=== PATIENT | male | born 1975 | race Caucasian/White ===

== ENCOUNTER 2016-07-19 08:11 | Inpatient (IN) | payer OTHER ==
[2016-07-19 09:27] VITALS: BMI 34.7
--- NOTE | 2016-07-19 12:18 | HP ---
CIWA Score - CIWA Score Nausea/Vomitin-Int. Nausea w/Dry Heave Muscle Tremors: 4-Moderate,w/Arms Extend Anxiety: 4-Mod. Anxious/Guarded Agitation: 4-Moderately Restless Paroxysmal Sweats: 1-Minimal Palms Moist Orientation: 0-Oriented Tacttile Disturbances: 3-Moderate Itch/Numb/Burn Auditory Disturbances: 0-None Visual Disturbances: 0-None Headache: 0-None Present CIWA-Ar Total Score: 20 Admission ROS BHS - HPI Chief Complaint: DETOX TX FOR ALCOHOL DEPENDENCE Allergies/Adverse Reactions: Allergies Allergy/AdvReac Type Severity Reaction Status Date / Time No Known Allergies Allergy Verified 07/19/16 09:51 History of Present Illness: 41 Y/O H/M WITH A HX OF ALCOHOL, COCAINE,PCP AND MARIJUANA DEPENDENCE SEEKING DETOX TX Exam Limitations: No Limitations - Ebola screening Have you traveled outside of the country in the last 21 days: No Have you had contact with anyone from an Ebola affected area: No Have you been sick,other than usual withdrawal symptoms: No Do you have a fever: No - Review of Systems Constitutional: Chills, Night Sweats EENT: reports: No Symptoms Reported Respiratory: reports: No Symptoms reported Cardiac: reports: No Symptoms Reported GI: reports: Nausea : reports: No Symptoms Reported Musculoskeletal: reports: No Symptoms Reported Integumentary: reports: No Symptoms Reported Neuro: reports: Tremors Endocrine: reports: No Symptoms Reported Hematology: reports: No Symptoms Reported Psychiatric: reports: Orientated x3, Anxious, Depressed Other Systems: Reviewed and Negative Patient History - Patient Medical History Hx Anemia: No Hx Asthma: No Hx Chronic Obstructive Pulmonary Disease (COPD): No Hx Cardiac Disorders: No Hx Hypertension: No Hx Hypercholesterolemia: No HX Cerebrovascular Accident: No Hx Seizures: No Hx Diabetes: No Hx Gastrointestinal Disorders: No Hx Genitourinary Disorders: No Hx Sexually Transmitted Disorders: No Hx Renal Disease (ESRD): No Hx Thyroid Disease: No Hx Human Immunodeficiency Virus (HIV): No (NEGATIVE HX) Hx Hepatitis C: No Hx Depression: Yes (NO MEDS) Hx Suicide Attempt: No Hx Schizophrenia: No - Patient Surgical History Past Surgical History: No Hx Neurologic Surgery: No Hx Cataract Extraction: No Hx Cardiac Surgery: No Hx Lung Surgery: No Hx Breast Surgery: No Hx Breast Biopsy: No Hx Abdominal Surgery: No Hx Appendectomy: No Hx Cholecystectomy: No Hx Genitourinary Surgery: No Hx Orthopedic Surgery: No Anesthesia Reaction: No - PPD History Previous Implant?: Yes Documented Results: Negative w/o proof Implanted On Prior [facility] Admission?: No PPD to be Administered?: Yes - Reproductive History Patient is a Female of Child Bearing Age (11 -55 yrs old): No (MALE) - Smoking Cessation Smoking history: Current every day smoker Have you smoked in the past 12 months: Yes Aproximately how many cigarettes per day: 10 Hx Chewing Tobacco Use: No Initiated information on smoking cessation: Yes 'Breaking Loose' booklet given: 07/19/16 - Substance & Tx. History Hx Alcohol Use: Yes (VODKA) Hx Substance Use: Yes (COCAINE/MARIJUANA/PCP) - Substances Abused Cocaine Route: Inhalation Frequency: 1-2 times per week Amount used: $50 Age of first use: 19 Date of Last Use: 07/18/16 Alcohol-vodka Route: Oral Frequency: Daily Amount used: 1 pt. Age of first use: 18 Date of Last Use: 07/19/16 Marijuana Route: Smoking Frequency: Daily Amount used: $20 Age of first use: 18 Date of Last Use: 07/18/16 PCP Route: Smoking Frequency: 1-2 times per week Amount used: 1 BLUNT Age of first use: 19 Date of Last Use: 07/18/16 Family Disease History - Family Disease History Family History: Denies Admission Physical Exam BHS - Vital Signs Vital Signs: Vital Signs - 24 hr 07/19/16 09:21 Temperature 98.1 F Pulse Rate 103 H Respiratory 20 Rate Blood Pressure 149/107 - Physical General Appearance: Yes: Moderate Distress, Alcohol on Breath, Intoxicated, Irritable, Anxious HEENTM: Yes: EOMI, Normocephalic, SINDHU, Pharynx Normal Neck: Yes: No masses,lesions,Nodules, Supple, Trachea in good position Breast: Yes: Breast Exam Deferred Cardiology: Yes: Regular Rhythm, Regular Rate, S1, S2 Abdominal: Yes: Normal Bowel Sounds, Non Tender, Soft Genitourinary: Yes: Other (N/C) Back: Yes: Within Normal Limits Musculoskeletal: Yes: full range of Motion, Gait Steady Extremities: Yes: Normal Range of Motion, Non-Tender Neurological: Yes: wiper blender II-XII NML intact, Fully Oriented, Alert, Motor Strength 5/5 Integumentary: Yes: Dry, Warm Lymphatic: Yes: Within Normal Limits - Diagnostic (1) Alcohol dependence with uncomplicated withdrawal Current Visit: Yes Status: Acute (2) Cocaine dependence, uncomplicated Current Visit: Yes Status: Acute (3) PCP dependence Current Visit: Yes Status: Acute (4) Cannabis dependence, uncomplicated Current Visit: Yes Status: Acute Cleared for Admission [facility] - Detox or Rehab [facility] Level of Care: Medically Managed Detox Regimen/Protocol: Librium [facility] Breath Alcohol Content Breath Alcohol Content: 0.042 Urine Drug Screen - Results Drug Screen Negative: No Urine Drug Screen Results: THC-Marijuana, ALAN-Cocaine, PCP-Phencyclidine, BZO- Benzodiazepines
[2016-07-19] MEDS ORDERED: MAG HYDROX/AL HYDROX/SIMETH 30 ML UNIT-DOSE CUP PO PRN (12:25)
[2016-07-19] MEDS ORDERED: MAGNESIUM HYDROX 2400MG/30ML ORAL SUSPENSION 30 ML CUP PO PRN (12:25)
[2016-07-19] MEDS ORDERED: IBUPROFEN 400 MG TABLET (FP) PO PRN (12:25)
[2016-07-19] MEDS ORDERED: diphenhydrAMINE HCL 50 MG CAPSULE PO PRN (12:25)
[2016-07-19] MEDS ORDERED: MENTHOL/PHENOL 1 EACH UD MM PRN (12:25)
[2016-07-19] MEDS ORDERED: LOPERAMIDE HCL 2 MG CAPSULE PO PRN (12:25)
[2016-07-19] MEDS ORDERED: MAGNESIUM CITRATE 300 ML BOTTLE PO PRN (12:25)
[2016-07-19] MEDS ORDERED: ACETAMINOPHEN 325 MG TABLET (FP) PO PRN (12:25)
[2016-07-19] MEDS ORDERED: chlordiazePOXIDE HCL 25 MG CAPSULE PO PRN (12:25)
[2016-07-19] MEDS ORDERED: hydrOXYzine PAMOATE 25 MG CAPSULE (FP) PO PRN (12:25)
[2016-07-19] MEDS ORDERED: guaiFENesin/D-METHORPHAN HB 10 ML UNIT-DOSE CUPS PO PRN (12:25)
[2016-07-19] MEDS ORDERED: P-EPHED 60MG/TRIPROLIDI 2.5MG TABLET PO PRN (12:25)
[2016-07-19] MEDS ORDERED: NICOTINE POLACRILEX 2 MG GUM BUC PRN (12:25)
[2016-07-19] MEDS ORDERED: chlordiazePOXIDE HCL 25 MG CAPSULE PO ONE (12:36)
[2016-07-19] MEDS: NICOTINE 14 MG/24 HOURS TOPICAL PATCH TD SCH (13:28)
[2016-07-19 15:51] LABS: URINE APPEARANCE CLEAR; URINE BILIRUBIN NEGATIVE (NEGATIVE); URINE BLOOD NEGATIVE (NEGATIVE); URINE COLOR YELLOW; URINE GLUCOSE (UA) NEGATIVE (NEGATIVE); URINE KETONE 1+ (NEGATIVE); URINE LEUK ESTERASE NEGATIVE (NEGATIVE); URINE NITRITE NEGATIVE (NEGATIVE); URINE PROTEIN NEGATIVE (NEGATIVE); URINE UROBILINOGEN NEGATIVE E.U./dl (0.2-1.0)
[2016-07-19] MEDS: chlordiazePOXIDE HCL 25 MG CAPSULE PO SCH ×2 (17:15→22:20)
[2016-07-19] MEDS ORDERED: THIAMINE HCL 100 MG TABLET (FP) PO SCH (22:00)
[2016-07-20] MEDS: chlordiazePOXIDE HCL 25 MG CAPSULE PO SCH ×2 (05:43→10:14)
[2016-07-20 09:47] VITALS: BP 137/103; PULSE 98; TEMP 98.1
[2016-07-20] MEDS ORDERED: PRENATAL VITAMINS W/ FOLIC ACID TABLET (FP) PO SCH (10:00)
[2016-07-20 10:02] LABS: MCH 29.9 pg (25.7-33.7); MCHC 34.2 g/dl (32.0-35.9); MEAN CELL VOLUME 87.5 fl (80-96); MEAN PLT VOLUME 9.7 fl (7.5-11.1); PLATELET COUNT 233 K/MM3 (134-434); RDW 13.2 % (11.9-15.9); WHITE BLOOD COUNT 10.5 K/mm3 (4.0-10.0)
--- NOTE | 2016-07-20 10:10 | EKG ---
Test Reason : Blood Pressure : / mmHG Vent. Rate : 089 BPM Atrial Rate : 089 BPM P-R Int : 128 ms QRS Dur : 106 ms QT Int : 378 ms P-R-T Axes : 058 028 068 degrees QTc Int : 459 ms SINUS RHYTHM WITH PREMATURE SUPRAVENTRICULAR COMPLEXES NONSPECIFIC T WAVE ABNORMALITY ABNORMAL ECG NO PREVIOUS ECGS AVAILABLE Confirmed by BECKY STEWART MD ([id number]) on 07/20/2016 10:09:46 AM Referred By: Hai Kirby Confirmed By:BECKY STEWART MD
[2016-07-20 10:17] LABS: ALBUMIN 4.5 g/dl (3.4-5.0); ALK PHOS 70 U/L (45-117); ANION GAP 12 (8-16); BILIRUBIN,TOTAL 0.2 mg/dL (0.2-1.0); CALCIUM 9.4 mg/dL (8.5-10.1); CO2 27 mmol/L (21-32); CREATININE 0.9 mg/dL (0.7-1.3); GLUCOSE,RANDOM 97 mg/dL (74-106); SGOT/AST 23 U/L (15-37); SGPT/ALT 56 U/L (12-78)
[2016-07-20] MEDS ORDERED: ONDANSETRON *ODT* 4 MG TABLET SL PRN (10:21)
[2016-07-20] MEDS: NICOTINE 14 MG/24 HOURS TOPICAL PATCH TD SCH (10:44)
--- NOTE | 2016-07-20 11:53 | PN ---
S CIWA - CIWA Score Nausea/Vomitin Muscle Tremors: 2 Anxiety: 3 Agitation: 2 Paroxysmal Sweats: 3 Orientation: 0-Oriented Tacttile Disturbances: 2-Mild Itch/Numbness/Burn Auditory Disturbances: 0-None Visual Disturbances: 0-None Headache: 0-None Present CIWA-Ar Total Score: 15 BHS Progress Note (SOAP) Subjective: interrupted sleep, sweats, shakes,nausea, Objective: 07/20/16 11:45 Vital Signs Temperature 98.1 F 07/20/16 09:47 Pulse Rate 98 H 07/20/16 09:47 Respiratory Rate 18 07/20/16 09:47 Blood Pressure 137/103 07/20/16 09:47 O2 Sat by Pulse Oximetry (%) Laboratory Tests 07/19/16 07/20/16 07/20/16 13:00 06:00 06:00 WBC 10.5 H RBC 5.37 Hgb 16.1 Hct 47.0 MCV 87.5 MCHC 34.2 RDW 13.2 Plt Count 233 MPV 9.7 Sodium 140 Potassium 3.9 Chloride 101 Carbon Dioxide 27 Anion Gap 12 BUN 13 Creatinine 0.9 Creat Clearance w eGFR > 60 Random Glucose 97 Calcium 9.4 Total Bilirubin 0.2 AST 23 ALT 56 Alkaline Phosphatase 70 Total Protein 8.0 Albumin 4.5 Urine Color Yellow Urine Appearance Clear Urine pH 5.0 Ur Specific [place] 1.020 Urine Protein Negative Urine Glucose (UA) Negative Urine Ketones 1+ H Urine Blood Negative Urine Nitrite Negative Urine Bilirubin Negative Urine Urobilinogen Negative Ur Leukocyte Esterase Negative pt aox3 in nad ambulating Assessment: 07/20/16 11:46 withdrawaaaal sx' Plan: cont. detox increase fluids
[2016-07-20 12:42] LABS: SICKLE CELL SCREEN NEGATIVE (NEGATIVE)
[2016-07-20] MEDS ORDERED: chlordiazePOXIDE HCL 25 MG CAPSULE PO SCH (17:00)
[2016-07-21] MEDS ORDERED: chlordiazePOXIDE 5 MG CAPSULE PO SCH (17:00)
[2016-07-22] MEDS ORDERED: chlordiazePOXIDE HCL 10 MG CAPSULE PO SCH (17:00)
--- NOTE | 2016-08-25 13:01 | DS ---
[facility] Detox Discharge Summary Admission Date: 07/19/16 Discharge Date: 07/20/16 - History Present History: Alcohol Dependence, Cannabis Dependence, Cocaine Dependence, Pcp Dependence - Physical Exam Results Vital Signs: Vital Signs Temperature 98.1 F 07/20/16 09:47 Pulse Rate 98 H 07/20/16 09:47 Respiratory Rate 18 07/20/16 09:47 Blood Pressure 137/103 07/20/16 09:47 O2 Sat by Pulse Oximetry (%) - Treatment Hospital Course: Detox Protocol Followed - Medication Discharge Medications: Ambulatory Orders NK [No Known Home Medication] 07/19/16 - Diagnosis (1) Alcohol dependence with uncomplicated withdrawal Status: Chronic (2) Cannabis dependence, uncomplicated Status: Chronic (3) Cocaine dependence, uncomplicated Status: Chronic (4) PCP dependence Status: Chronic - AMA Did Patient Leave Against Medical Advice: Yes (wanted to leaVE )
== END 2016-07-20 12:37 | disposition left against medical advice (07) | DRG 770 ==
LOC: YASAS 08:11 → Y6N 11:47
PROVIDERS: ADMIT Internal Medicine Addiction Medicine; ATTEND Internal Medicine Addiction Medicine
PROC: HZ2ZZZZ Detoxification Services for Substance Abuse Treatment (ICD-10-PCS; principal; 2016-07-19)
DX: F10.230 Alcohol dependence with withdrawal, uncomplicated (principal); F14.20 Cocaine dependence, uncomplicated; F16.20 Hallucinogen dependence, uncomplicated; F12.20 Cannabis dependence, uncomplicated; F17.210 Nicotine dependence, cigarettes, uncomplicated
CPT/HCPCS: 36415; 80053; 81003; 85027; 85660; 86593; 93005; 93010

== ENCOUNTER 2016-11-29 08:26 | Inpatient (IN) | payer OTHER ==
[2016-11-29 08:44] VITALS: BMI 34.4
--- NOTE | 2016-11-29 12:16 | HP ---
COWS - Scale Resting Pulse: 0= [place] 80 or Below Sweatin=Flushed/Facial Moisture Restless Observation: 3= Extraneous Movement Pupil Size: 2= Moderately Dilated Bone or Joint Aches: 2= Severe Diffuse Aches Runny Nose/ Eye Tearin= Runny Nose/Eyes GI Upset > 30mins: 3= Vomiting/Diarrhea Tremor Observation: 2= Slight Tremor Visible Yawning Observation: 2= >3x During Session Anxiety or Irritability: 2=Irritable/Anxious Goose Flesh Skin: 0=Smooth Skin COWS Score: 20 CIWA Score - CIWA Score Nausea/Vomitin Muscle Tremors: 3 Anxiety: 3 Agitation: 3 Paroxysmal Sweats: 2 Orientation: 0-Oriented Tacttile Disturbances: 2-Mild Itch/Numbness/Burn Auditory Disturbances: 2-Mild Harshness/Frighten Visual Disturbances: 2-Mild Sensitivity Headache: 2-Mild CIWA-Ar Total Score: 22 Admission ROS BHS - HPI Chief Complaint: i need help to stop using heroin and alcohol Allergies/Adverse Reactions: Allergies Allergy/AdvReac Type Severity Reaction Status Date / Time peanut Allergy Severe Hives Verified 11/29/16 12:06 History of Present Illness: this 41 years old male with heroin and alcohol dependence,seeking detox,last treatment 07/19/16 to 07/20/16 not completed nicotine dependence multiple admissions no significant period of sobriety - Ebola screening Have you traveled outside of the country in the last 21 days: No Have you been sick,other than usual withdrawal symptoms: No - Review of Systems Constitutional: Chills, Loss of Appetite, Malaise, Night Sweats, Changes in sleep, Weakness EENT: reports: Tearing, Nose Congestion Respiratory: reports: No Symptoms reported Cardiac: reports: No Symptoms Reported GI: reports: Diarrhea, Nausea, Poor Fluid Intake, Vomiting : reports: No Symptoms Reported Musculoskeletal: reports: Back Pain, Joint Pain, Muscle Pain Integumentary: reports: Dryness Neuro: reports: Headache, Tremors Endocrine: reports: No Symptoms Reported Hematology: reports: No Symptoms Reported Psychiatric: reports: No Sypmtoms Reported, Judgement Intact, Mood/Affect Appropiate, Orientated x3 Patient History - Patient Medical History Hx Anemia: No Hx Asthma: No Hx Chronic Obstructive Pulmonary Disease (COPD): No Hx Cardiac Disorders: No Hx Hypertension: No Hx Hypercholesterolemia: No HX Cerebrovascular Accident: No Hx Seizures: No Hx Diabetes: No Hx Gastrointestinal Disorders: No Hx Genitourinary Disorders: No Hx Sexually Transmitted Disorders: No Hx Renal Disease (ESRD): No Hx Thyroid Disease: No Hx Human Immunodeficiency Virus (HIV): No (NEGATIVE HX last 06/03) Hx Hepatitis C: No Hx Depression: No Hx Suicide Attempt: No Hx Bipolar Disorder: No Hx Schizophrenia: No Other Medical History: no suicidal,no homicidal - Patient Surgical History Past Surgical History: No Hx Neurologic Surgery: No Hx Cataract Extraction: No Hx Cardiac Surgery: No Hx Lung Surgery: No Hx Breast Surgery: No Hx Breast Biopsy: No Hx Abdominal Surgery: No Hx Appendectomy: No Hx Cholecystectomy: No Hx Genitourinary Surgery: No Hx Section: No Hx Orthopedic Surgery: No Anesthesia Reaction: No - PPD History Previous Implant?: Yes Documented Results: Negative w/o proof Date: 07/21/16 Results: left before ananth PPD to be Administered?: Yes - Smoking Cessation Smoking history: Smoker current status UNK Have you smoked in the past 12 months: No Aproximately how many cigarettes per day: 10 Hx Chewing Tobacco Use: No Initiated information on smoking cessation: Yes 'Breaking Loose' booklet given: 11/29/16 - Substance & Tx. History Hx Alcohol Use: Yes Hx Substance Use: Yes Substance Use Type: Alcohol, Heroin Hx Substance Use Treatment: Yes (last [facility] 07/19/16 to 07/20/16 not completed) - Substances Abused Heroin Route: Inhalation Frequency: Daily Amount used: 4 bags Age of first use: 18 Date of Last Use: 11/28/16 Alcohol Route: Oral Frequency: Daily Amount used: 10 beers Age of first use: 19 Date of Last Use: 11/29/16 Family Disease History - Family Disease History Family History: Denies Admission Physical Exam S - Vital Signs Vital Signs: Vital Signs - 24 hr 11/29/16 08:39 Temperature 96.9 F L Pulse Rate 70 Respiratory 18 Rate Blood Pressure 148/78 - Physical General Appearance: Yes: Moderate Distress, Tremorous, Irritable, Sweating, Anxious HEENTM: Yes: Normal ENT Inspection, Normocephalic, SINDHU, Pharynx Normal Respiratory: Yes: Lungs Clear, Normal Breath Sounds, No Respiratory Distress Neck: Yes: Within Normal Limits, Supple, Trachea in good position Breast: Yes: Within Normal Limits Cardiology: Yes: Within Normal Limits, Regular Rhythm, Regular Rate, S1, S2 Abdominal: Yes: Within Normal Limits, Normal Bowel Sounds, Non Tender, Flat, Soft Genitourinary: Yes: Within Normal Limits Back: Yes: Muscle Spasm Musculoskeletal: Yes: full range of Motion, Back pain, Muscle Pain Extremities: Yes: Tremors Neurological: Yes: steel turner II-XII NML intact, Fully Oriented, Alert, Motor Strength 5/5 Integumentary: Yes: Dry Lymphatic: Yes: Within Normal Limits - Diagnostic (1) Opioid dependence with withdrawal Current Visit: Yes Status: Acute (2) Alcohol dependence with uncomplicated withdrawal Current Visit: No Status: Chronic (3) Nicotine dependence Current Visit: Yes Status: Acute Cleared for Admission [facility] - Detox or Rehab [facility] Level of Care: Medically Managed Detox Regimen/Protocol: Methadone/Librium [facility] Breath Alcohol Content Breath Alcohol Content: 0.022 Urine Drug Screen - Results Drug Screen Negative: No Urine Drug Screen Results: THC-Marijuana, ALAN-Cocaine, OPI-Opiates
[2016-11-29] MEDS ORDERED: LOPERAMIDE HCL 2 MG CAPSULE PO PRN (12:27)
[2016-11-29] MEDS ORDERED: MAGNESIUM HYDROX 2400MG/30ML ORAL SUSPENSION 30 ML CUP PO PRN (12:27)
[2016-11-29] MEDS ORDERED: MAG HYDROX/AL HYDROX/SIMETH 30 ML UNIT-DOSE CUP PO PRN (12:27)
[2016-11-29] MEDS ORDERED: chlordiazePOXIDE HCL 25 MG CAPSULE PO PRN (12:27)
[2016-11-29] MEDS ORDERED: IBUPROFEN 400 MG TABLET (FP) PO PRN (12:27)
[2016-11-29] MEDS ORDERED: MENTHOL/PHENOL 1 EACH UD MM PRN (12:27)
[2016-11-29] MEDS ORDERED: guaiFENesin/D-METHORPHAN HB 10 ML UNIT-DOSE CUPS PO PRN (12:27)
[2016-11-29] MEDS ORDERED: ACETAMINOPHEN 325 MG TABLET (FP) PO PRN (12:27)
[2016-11-29] MEDS ORDERED: P-EPHED 60MG/TRIPROLIDI 2.5MG TABLET PO PRN (12:27)
[2016-11-29] MEDS ORDERED: MAGNESIUM CITRATE 300 ML BOTTLE PO PRN (12:27)
[2016-11-29] MEDS ORDERED: chlordiazePOXIDE HCL 25 MG CAPSULE PO ONE (12:38)
[2016-11-29] MEDS ORDERED: METHADONE HCL 10 MG TABLET (FOR DETOX USE ONLY) PO ONE ×2 (12:38→23:00)
[2016-11-29] MEDS: chlordiazePOXIDE HCL 25 MG CAPSULE PO SCH ×2 (17:00→22:19)
[2016-11-29 21:43] LABS: URINE APPEARANCE SLCLOUDY; URINE BILIRUBIN NEGATIVE (NEGATIVE); URINE BLOOD NEGATIVE (NEGATIVE); URINE COLOR DKYELLOW; URINE GLUCOSE (UA) NEGATIVE (NEGATIVE); URINE KETONE NEGATIVE (NEGATIVE); URINE LEUK ESTERASE NEGATIVE (NEGATIVE); URINE NITRITE NEGATIVE (NEGATIVE); URINE UROBILINOGEN 4.0 E.U/dl mg/dL (0.2-1.0)
[2016-11-29 22:01] LABS: URINE PROTEIN 1+ (NEGATIVE)
[2016-11-29] MEDS: THIAMINE HCL 100 MG TABLET (FP) PO SCH (22:18)
[2016-11-29 23:03] LABS: URINE MUCUS FEW; URINE RBC 1 /hpf (0-3); URINE WBC 1 /hpf (3-5)
[2016-11-30] MEDS: chlordiazePOXIDE HCL 25 MG CAPSULE PO SCH ×2 (05:38→10:23)
[2016-11-30] MEDS ORDERED: METHADONE HCL 10 MG TABLET (FOR DETOX USE ONLY) PO SCH (10:00)
[2016-11-30] MEDS: PRENATAL VITAMINS W/ FOLIC ACID TABLET (FP) PO SCH (10:23)
[2016-11-30 10:41] LABS: MCH 30.4 pg (25.7-33.7); MCHC 33.8 g/dl (32.0-35.9); PLATELET COUNT 235 K/MM3 (134-434); RDW 13.1 % (11.9-15.9); WHITE BLOOD COUNT 8.8 K/mm3 (4.0-10.0)
[2016-11-30 10:46] LABS: ALBUMIN 4.2 g/dl (3.4-5.0); ALK PHOS 60 U/L (45-117); ANION GAP 11 (8-16); BILIRUBIN,TOTAL 0.5 mg/dL (0.2-1.0); CALCIUM 9.2 mg/dL (8.5-10.1); CO2 26 mmol/L (21-32); GLUCOSE,RANDOM 103 mg/dL (74-106); SGOT/AST 42 U/L (15-37); SGPT/ALT 69 U/L (12-78); TOT PROT 7.4 g/dl (6.4-8.2)
--- NOTE | 2016-11-30 12:13 | PN ---
S CIWA - CIWA Score Nausea/Vomitin Muscle Tremors: 4-Moderate,w/Arms Extend Anxiety: 3 Agitation: 0-Normal Activity Paroxysmal Sweats: 3 Orientation: 0-Oriented Tacttile Disturbances: 0-None Auditory Disturbances: 2-Mild Harshness/Frighten Visual Disturbances: 1-Very Mild Sensitivity Headache: 3-Moderate CIWA-Ar Total Score: 18 BHS COWS - Scale Resting Pulse: 1= [place] 81-100 Sweatin= Chills/Flushing Restless Observation: 0= Sits Still Pupil Size: 0= Normal to Room Light Bone or Joint Aches: 2= Severe Diffuse Aches Runny Nose/ Eye Tearin= Runny Nose/Eyes GI Upset > 30mins: 2= Nausea/Diarrhea Tremor Observation of Outstretched Hands: 2= Slight Tremor Visible Yawning Observation: 1= 1-2x During Session Anxiety or Irritability: 2=Irritable/Anxious Goose Flesh Skin: 0=Smooth Skin COWS Score: 13 S Progress Note (SOAP) Subjective: Nausea, Diarrhea, H/A, Sweating, Tremors. Objective: PT. A & O X 3, OBSERVED AMBULATING ON UNIT. NO ACUTE DISTRESS. PT. DENIES CHEST PAIN. 11/30/16 12:09 Vital Signs Temperature 96.8 F L 11/30/16 09:56 Pulse Rate 89 11/30/16 09:56 Respiratory Rate 16 11/30/16 09:56 Blood Pressure 147/102 11/30/16 09:56 O2 Sat by Pulse Oximetry (%) Laboratory Tests 11/29/16 11/30/16 11/30/16 15:00 06:00 06:00 WBC 8.8 RBC 4.95 Hgb 15.0 Hct 44.5 MCV 90.0 MCH 30.4 MCHC 33.8 RDW 13.1 Plt Count 235 MPV 10.0 Sodium 140 Potassium 4.1 Chloride 103 Carbon Dioxide 26 Anion Gap 11 BUN 15 Creatinine 1.0 Creat Clearance w eGFR > 60 Random Glucose 103 Calcium 9.2 Total Bilirubin 0.5 D AST 42 H D ALT 69 D Alkaline Phosphatase 60 Total Protein 7.4 Albumin 4.2 Urine Color Dkyellow Urine Appearance Slcloudy Urine pH 6.0 Ur Specific [place] 1.020 Urine Protein 1+ H Urine Glucose (UA) Negative Urine Ketones Negative Urine Blood Negative Urine Nitrite Negative Urine Bilirubin Negative Urine Urobilinogen 4.0 e.u/dl Ur Leukocyte Esterase Negative Urine RBC 1 Urine WBC 1 Ur Epithelial Cells Rare Urine Mucus Few LABS NOTED. RPR RESULT PENDING. 11/30/16 12:12 Assessment: 11/30/16 12:10 WITHDRAWAL SYMPTOMS. Plan: CONTINUE DETOX. CLONIDINE, 0.1 MG PO X 1 FOR ELEVATED BP AND FOR DETOX SYMPTOMS.
[2016-11-30] MEDS ORDERED: cloNIDine HCL 0.1 MG TABLET PO ONE (12:24)
--- NOTE | 2016-11-30 16:06 | PN ---
[facility] Progress Note Note: Patient reporting that he feels that he is not tolerating Librium Detox regimen well and requesting to be changed to Valium Detox regimen. Librium Detox regimen changed to Valium detox regimen. Current Methadone Detox regimen maintained. Cr Kendrick NP
[2016-11-30] MEDS ORDERED: chlordiazePOXIDE HCL 25 MG CAPSULE PO SCH (17:00)
--- NOTE | 2016-11-30 20:02 | EKG ---
Test Reason : Blood Pressure : / mmHG Vent. Rate : 091 BPM Atrial Rate : 091 BPM P-R Int : 120 ms QRS Dur : 102 ms QT Int : 382 ms P-R-T Axes : 052 023 047 degrees QTc Int : 469 ms SINUS RHYTHM WITH PREMATURE ATRIAL COMPLEXES WITH ABERRANT CONDUCTION T WAVE ABNORMALITY, CONSIDER ANTERIOR ISCHEMIA PROLONGED QT ABNORMAL ECG WHEN COMPARED WITH ECG OF 19-JUL-2016 12:55, NO SIGNIFICANT CHANGE WAS FOUND Confirmed by DAVID JUAREZ MD ([id number] on 11/30/2016 8:01:41 PM Referred By: Howard Dong Confirmed By:DAVID JUAREZ MD
[2016-11-30] MEDS: diazePAM 5 MG TABLET PO SCH (22:16)
[2016-11-30] MEDS: THIAMINE HCL 100 MG TABLET (FP) PO SCH (22:16)
[2016-11-30] MEDS: diphenhydrAMINE HCL 50 MG CAPSULE PO PRN (22:16)
[2016-12-01] MEDS: diazePAM 5 MG TABLET PO SCH ×3 (06:11→22:19)
[2016-12-01] MEDS: PRENATAL VITAMINS W/ FOLIC ACID TABLET (FP) PO SCH (10:29)
[2016-12-01] MEDS: METHADONE HCL 5 MG TABLET (FOR DETOX USE ONLY) PO SCH (10:29)
[2016-12-01] MEDS: diazePAM 5 MG TABLET PO PRN ×2 (11:12→19:39)
[2016-12-01] MEDS ORDERED: ONDANSETRON *ODT* 4 MG TABLET SL PRN (11:15)
--- NOTE | 2016-12-01 11:31 | PN ---
S CIWA - CIWA Score Nausea/Vomitin Muscle Tremors: 4-Moderate,w/Arms Extend Anxiety: 3 Agitation: 3 Paroxysmal Sweats: 3 Orientation: 0-Oriented Tacttile Disturbances: 0-None Auditory Disturbances: 0-None Visual Disturbances: 0-None Headache: 0-None Present CIWA-Ar Total Score: 18 BHS COWS - Scale Resting Pulse: 0= [place] 80 or Below Sweatin= Chills/Flushing Restless Observation: 1= Difficult to Sit Still Pupil Size: 1= Pupils >than Normal Bone or Joint Aches: 1= Mild Discomfort Runny Nose/ Eye Tearin= Nasal Congestion GI Upset > 30mins: 3= Vomiting/Diarrhea Tremor Observation of Outstretched Hands: 2= Slight Tremor Visible Yawning Observation: 1= 1-2x During Session Anxiety or Irritability: 2=Irritable/Anxious Goose Flesh Skin: 3=Piloerection COWS Score: 16 S Progress Note (SOAP) Subjective: nausea, vomiting, dry heaves, anxiety, tremors, interrupted sleep Objective: 12/01/16 11:29 Laboratory Tests 11/29/16 11/30/16 11/30/16 15:00 06:00 06:00 WBC 8.8 RBC 4.95 Hgb 15.0 Hct 44.5 MCV 90.0 MCH 30.4 MCHC 33.8 RDW 13.1 Plt Count 235 MPV 10.0 Sodium 140 Potassium 4.1 Chloride 103 Carbon Dioxide 26 Anion Gap 11 BUN 15 Creatinine 1.0 Creat Clearance w eGFR > 60 Random Glucose 103 Calcium 9.2 Total Bilirubin 0.5 D AST 42 H D ALT 69 D Alkaline Phosphatase 60 Total Protein 7.4 Albumin 4.2 Urine Color Dkyellow Urine Appearance Slcloudy Urine pH 6.0 Ur Specific [place] 1.020 Urine Protein 1+ H Urine Glucose (UA) Negative Urine Ketones Negative Urine Blood Negative Urine Nitrite Negative Urine Bilirubin Negative Urine Urobilinogen 4.0 e.u/dl Ur Leukocyte Esterase Negative Urine RBC 1 Urine WBC 1 Ur Epithelial Cells Rare Urine Mucus Few RPR Titer 11/30/16 06:00 WBC RBC Hgb Hct MCV MCH MCHC RDW Plt Count MPV Sodium Potassium Chloride Carbon Dioxide Anion Gap BUN Creatinine Creat Clearance w eGFR Random Glucose Calcium Total Bilirubin AST ALT Alkaline Phosphatase Total Protein Albumin Urine Color Urine Appearance Urine pH Ur Specific [place] Urine Protein Urine Glucose (UA) Urine Ketones Urine Blood Urine Nitrite Urine Bilirubin Urine Urobilinogen Ur Leukocyte Esterase Urine RBC Urine WBC Ur Epithelial Cells Urine Mucus RPR Titer Nonreactive 12/01/16 11:30 Vital Signs - 8 hr 12/01/16 12/01/16 06:44 10:04 Temperature 97.3 F L 96.6 F L Pulse Rate 79 78 Respiratory 18 18 Rate Blood Pressure 129/91 132/87 Assessment: 12/01/16 11:30 withdrawal sx Plan: cont detox, zofran for nausea, fluids, ambulation
[2016-12-01] MEDS ORDERED: chlordiazePOXIDE 5 MG CAPSULE PO SCH (17:00)
[2016-12-01] MEDS: THIAMINE HCL 100 MG TABLET (FP) PO SCH (22:19)
[2016-12-01] MEDS: diphenhydrAMINE HCL 50 MG CAPSULE PO PRN (22:19)
[2016-12-02] MEDS: diazePAM 5 MG TABLET PO PRN ×2 (06:01→19:44)
[2016-12-02] MEDS ORDERED: CYCLOBENZAPRINE HCL 10 MG TABLET (FP) PO ONE (08:55)
[2016-12-02] MEDS: diazePAM 5 MG TABLET PO SCH ×2 (10:20→22:05)
[2016-12-02] MEDS: PRENATAL VITAMINS W/ FOLIC ACID TABLET (FP) PO SCH (10:20)
[2016-12-02] MEDS: METHADONE HCL 5 MG TABLET (FOR DETOX USE ONLY) PO SCH (10:20)
[2016-12-02] MEDS: cloNIDine HCL 0.1 MG TABLET PO SCH ×2 (10:22→22:05)
[2016-12-02] MEDS: CYCLOBENZAPRINE HCL 10 MG TABLET (FP) PO SCH ×2 (13:36→22:05)
--- NOTE | 2016-12-02 16:11 | PN ---
BHS Progress Note (SOAP) Subjective: Sweating,interrupted sleep,restless Objective: 12/02/16 16:09 Vital Signs - 8 hr 12/02/16 12/02/16 12/02/16 09:31 09:47 13:51 Temperature 98.6 F 98.6 F 96.0 F L Pulse Rate 83 83 91 H Respiratory 20 20 20 Rate Blood Pressure 126/90 120/90 126/88 Laboratory Last Values WBC 8.8 K/mm3 (4.0-10.0) 11/30/16 06:00 RBC 4.95 M/mm3 (4.00-5.60) 11/30/16 06:00 Hgb 15.0 GM/dL (11.7-16.9) 11/30/16 06:00 Hct 44.5 % (35.4-49) 11/30/16 06:00 MCV 90.0 fl (80-96) 11/30/16 06:00 MCH 30.4 pg (25.7-33.7) 11/30/16 06:00 MCHC 33.8 g/dl (32.0-35.9) 11/30/16 06:00 RDW 13.1 % (11.9-15.9) 11/30/16 06:00 Plt Count 235 K/MM3 (134-434) 11/30/16 06:00 MPV 10.0 fl (7.5-11.1) 11/30/16 06:00 Sodium 140 mmol/L (136-145) 11/30/16 06:00 Potassium 4.1 mmol/L (3.5-5.1) 11/30/16 06:00 Chloride 103 mmol/L (98-107) 11/30/16 06:00 Carbon Dioxide 26 mmol/L (21-32) 11/30/16 06:00 Anion Gap 11 (8-16) 11/30/16 06:00 BUN 15 mg/dL (7-18) 11/30/16 06:00 Creatinine 1.0 mg/dL (0.7-1.3) 11/30/16 06:00 Creat Clearance w eGFR > 60 (>60) 11/30/16 06:00 Random Glucose 103 mg/dL (74-106) 11/30/16 06:00 Calcium 9.2 mg/dL (8.5-10.1) 11/30/16 06:00 Total Bilirubin 0.5 mg/dL (0.2-1.0) D 11/30/16 06:00 AST 42 U/L (15-37) H D 11/30/16 06:00 ALT 69 U/L (12-78) D 11/30/16 06:00 Alkaline Phosphatase 60 U/L (45-117) 11/30/16 06:00 Total Protein 7.4 g/dl (6.4-8.2) 11/30/16 06:00 Albumin 4.2 g/dl (3.4-5.0) 11/30/16 06:00 Urine Color Dkyellow 11/29/16 15:00 Urine Appearance Slcloudy 11/29/16 15:00 Urine pH 6.0 (5.0-8.0) 11/29/16 15:00 Ur Specific [place] 1.020 (1.005-1.025) 11/29/16 15:00 Urine Protein 1+ (NEGATIVE) H 11/29/16 15:00 Urine Glucose (UA) Negative (NEGATIVE) 11/29/16 15:00 Urine Ketones Negative (NEGATIVE) 11/29/16 15:00 Urine Blood Negative (NEGATIVE) 11/29/16 15:00 Urine Nitrite Negative (NEGATIVE) 11/29/16 15:00 Urine Bilirubin Negative (NEGATIVE) 11/29/16 15:00 Urine Urobilinogen 4.0 e.u/dl mg/dL (0.2-1.0) 11/29/16 15:00 Ur Leukocyte Esterase Negative (NEGATIVE) 11/29/16 15:00 Urine RBC 1 /hpf (0-3) 11/29/16 15:00 Urine WBC 1 /hpf (3-5) 11/29/16 15:00 Ur Epithelial Cells Rare /hpf (FEW) 11/29/16 15:00 Urine Mucus Few 11/29/16 15:00 RPR Titer Nonreactive (NONREACTIVE) 11/30/16 06:00 labs noted Assessment: 12/02/16 16:10 Withdrawal sx. Plan: Continue detox
[2016-12-02] MEDS ORDERED: chlordiazePOXIDE HCL 10 MG CAPSULE PO SCH (17:00)
[2016-12-02] MEDS: THIAMINE HCL 100 MG TABLET (FP) PO SCH (22:04)
[2016-12-02] MEDS: diphenhydrAMINE HCL 50 MG CAPSULE PO PRN (22:05)
[2016-12-03] MEDS: CYCLOBENZAPRINE HCL 10 MG TABLET (FP) PO SCH ×3 (05:53→22:18)
[2016-12-03] MEDS ORDERED: METHADONE HCL 10 MG TABLET (FOR DETOX USE ONLY) PO SCH (10:00)
[2016-12-03] MEDS: diazePAM 5 MG TABLET PO SCH ×2 (10:24→22:17)
[2016-12-03] MEDS: PRENATAL VITAMINS W/ FOLIC ACID TABLET (FP) PO SCH (10:24)
[2016-12-03] MEDS: cloNIDine HCL 0.1 MG TABLET PO SCH ×2 (10:24→22:18)
--- NOTE | 2016-12-03 20:15 | PN ---
BHS Progress Note (SOAP) Subjective: Body Aches, Sweating, H/A, Anxious, Diarrhea. Objective: PT. A & O X 3, OBSERVED AMBULATING ON UNIT. NO ACUTE DISTRESS. 12/03/16 20:14 Vital Signs Temperature 97.5 F L 12/03/16 18:58 Pulse Rate 77 12/03/16 18:58 Respiratory Rate 18 12/03/16 18:58 Blood Pressure 126/77 12/03/16 18:58 O2 Sat by Pulse Oximetry (%) Laboratory Tests 11/29/16 11/30/16 11/30/16 15:00 06:00 06:00 WBC 8.8 RBC 4.95 Hgb 15.0 Hct 44.5 MCV 90.0 MCH 30.4 MCHC 33.8 RDW 13.1 Plt Count 235 MPV 10.0 Sodium 140 Potassium 4.1 Chloride 103 Carbon Dioxide 26 Anion Gap 11 BUN 15 Creatinine 1.0 Creat Clearance w eGFR > 60 Random Glucose 103 Calcium 9.2 Total Bilirubin 0.5 D AST 42 H D ALT 69 D Alkaline Phosphatase 60 Total Protein 7.4 Albumin 4.2 Urine Color Dkyellow Urine Appearance Slcloudy Urine pH 6.0 Ur Specific [place] 1.020 Urine Protein 1+ H Urine Glucose (UA) Negative Urine Ketones Negative Urine Blood Negative Urine Nitrite Negative Urine Bilirubin Negative Urine Urobilinogen 4.0 e.u/dl Ur Leukocyte Esterase Negative Urine RBC 1 Urine WBC 1 Ur Epithelial Cells Rare Urine Mucus Few RPR Titer 11/30/16 06:00 WBC RBC Hgb Hct MCV MCH MCHC RDW Plt Count MPV Sodium Potassium Chloride Carbon Dioxide Anion Gap BUN Creatinine Creat Clearance w eGFR Random Glucose Calcium Total Bilirubin AST ALT Alkaline Phosphatase Total Protein Albumin Urine Color Urine Appearance Urine pH Ur Specific [place] Urine Protein Urine Glucose (UA) Urine Ketones Urine Blood Urine Nitrite Urine Bilirubin Urine Urobilinogen Ur Leukocyte Esterase Urine RBC Urine WBC Ur Epithelial Cells Urine Mucus RPR Titer Nonreactive LABS NOTED. Assessment: 12/03/16 20:14 WITHDRAWAL SYMPTOMS. Plan: CONTINUE DETOX.
[2016-12-03] MEDS: THIAMINE HCL 100 MG TABLET (FP) PO SCH (22:18)
[2016-12-03] MEDS: diphenhydrAMINE HCL 50 MG CAPSULE PO PRN (22:19)
[2016-12-04] MEDS: CYCLOBENZAPRINE HCL 10 MG TABLET (FP) PO SCH (05:56)
[2016-12-04] MEDS ORDERED: METHADONE HCL 5 MG TABLET (FOR DETOX USE ONLY) PO SCH (06:00)
[2016-12-04] MEDS ORDERED: diazePAM 5 MG TABLET PO SCH (10:00)
[2016-12-04 10:16] VITALS: BP 136/95; PULSE 80; TEMP 95.5
[2016-12-04] MEDS: PRENATAL VITAMINS W/ FOLIC ACID TABLET (FP) PO SCH (10:28)
[2016-12-04] MEDS: cloNIDine HCL 0.1 MG TABLET PO SCH (10:28)
--- NOTE | 2016-12-04 13:59 | DS ---
[facility] Detox Discharge Summary Admission Date: 11/29/16 Discharge Date: 12/04/16 - History Present History: Alcohol Dependence, Opioid Dependence Pertinent Past History: Denies - Physical Exam Results Vital Signs: Vital Signs Temperature 95.5 F L 12/04/16 10:15 Pulse Rate 80 12/04/16 10:15 Respiratory Rate 18 12/04/16 10:15 Blood Pressure 136/95 12/04/16 10:15 O2 Sat by Pulse Oximetry (%) Pertinent Admission Physical Exam Findings: Withdrawal symptoms Laboratory Tests 11/29/16 11/30/16 11/30/16 15:00 06:00 06:00 WBC 8.8 RBC 4.95 Hgb 15.0 Hct 44.5 MCV 90.0 MCH 30.4 MCHC 33.8 RDW 13.1 Plt Count 235 MPV 10.0 Sodium 140 Potassium 4.1 Chloride 103 Carbon Dioxide 26 Anion Gap 11 BUN 15 Creatinine 1.0 Creat Clearance w eGFR > 60 Random Glucose 103 Calcium 9.2 Total Bilirubin 0.5 D AST 42 H D ALT 69 D Alkaline Phosphatase 60 Total Protein 7.4 Albumin 4.2 Urine Color Dkyellow Urine Appearance Slcloudy Urine pH 6.0 Ur Specific [place] 1.020 Urine Protein 1+ H Urine Glucose (UA) Negative Urine Ketones Negative Urine Blood Negative Urine Nitrite Negative Urine Bilirubin Negative Urine Urobilinogen 4.0 e.u/dl Ur Leukocyte Esterase Negative Urine RBC 1 Urine WBC 1 Ur Epithelial Cells Rare Urine Mucus Few RPR Titer 11/30/16 06:00 WBC RBC Hgb Hct MCV MCH MCHC RDW Plt Count MPV Sodium Potassium Chloride Carbon Dioxide Anion Gap BUN Creatinine Creat Clearance w eGFR Random Glucose Calcium Total Bilirubin AST ALT Alkaline Phosphatase Total Protein Albumin Urine Color Urine Appearance Urine pH Ur Specific [place] Urine Protein Urine Glucose (UA) Urine Ketones Urine Blood Urine Nitrite Urine Bilirubin Urine Urobilinogen Ur Leukocyte Esterase Urine RBC Urine WBC Ur Epithelial Cells Urine Mucus RPR Titer Nonreactive Labs noted: UA has 1+ protein: encouraged to drink more water, monitor UA - Treatment Hospital Course: Detox Protocol Followed, Detoxed Safely, Responded well, Discharged Condition Good, Rehab Referral Accepted - Medication Discharge Medications: Ambulatory Orders NK [No Known Home Medication] 12/04/16 - Diagnosis (1) Opioid dependence with withdrawal Status: Acute (2) Alcohol dependence with uncomplicated withdrawal Status: Acute - AMA Did Patient Leave Against Medical Advice: No
== END 2016-12-04 12:46 | disposition other institution (70) | DRG 773 ==
LOC: YASAS 08:26 → Y3N 12:27
PROVIDERS: ADMIT Internal Medicine; ATTEND Internal Medicine
PROC: HZ2ZZZZ Detoxification Services for Substance Abuse Treatment (ICD-10-PCS; principal; 2016-11-29)
DX: F11.23 Opioid dependence with withdrawal (principal); F10.230 Alcohol dependence with withdrawal, uncomplicated; F17.210 Nicotine dependence, cigarettes, uncomplicated; Z91.010 Allergy to peanuts
CPT/HCPCS: 36415; 80053; 81003; 81015; 85027; 86593; 93005; 93010

== ENCOUNTER 2016-12-04 13:23 | Inpatient (IN) | payer OTHER ==
--- NOTE | 2016-12-04 15:04 | HP ---
TENISHA SLAUGHTER Rehab Assess/Revision - Admission History Admitted to Rehab from: [facility] Date of Admission to Rehab: 12/04/16 - Vital signs Vital Signs: Vital Signs Period Temp Pulse Resp BP Sys/Sharma Pulse Ox Last 24 Hr 98.7 F 84 18 151/101 - Findings Detox History & Physical reviewed: Yes Concur with findings: Yes Comments/Additional Findings: FOR REHAB PROTOCOL
[2016-12-04] MEDS ORDERED: guaiFENesin/D-METHORPHAN HB 10 ML UNIT-DOSE CUPS PO PRN (15:05)
[2016-12-04] MEDS ORDERED: IBUPROFEN 400 MG TABLET (FP) PO PRN (15:05)
[2016-12-04] MEDS ORDERED: MENTHOL/PHENOL 1 EACH UD MM PRN (15:05)
[2016-12-04] MEDS ORDERED: MAGNESIUM CITRATE 300 ML BOTTLE PO PRN (15:05)
[2016-12-04] MEDS ORDERED: MAG HYDROX/AL HYDROX/SIMETH 30 ML UNIT-DOSE CUP PO PRN (15:05)
[2016-12-04] MEDS ORDERED: ACETAMINOPHEN 325 MG TABLET (FP) PO PRN (15:05)
[2016-12-04] MEDS ORDERED: LOPERAMIDE HCL 2 MG CAPSULE PO PRN (15:05)
[2016-12-04] MEDS ORDERED: hydrOXYzine PAMOATE 50 MG CAPSULE (FP) PO PRN (15:05)
[2016-12-04] MEDS ORDERED: diphenhydrAMINE HCL 50 MG CAPSULE PO PRN (15:05)
[2016-12-04] MEDS ORDERED: P-EPHED 60MG/TRIPROLIDI 2.5MG TABLET PO PRN (15:05)
[2016-12-04] MEDS ORDERED: MAGNESIUM HYDROX 2400MG/30ML ORAL SUSPENSION 30 ML CUP PO PRN (15:05)
[2016-12-04] MEDS ORDERED: THIAMINE HCL 100 MG TABLET (FP) PO SCH (22:00)
[2016-12-05 07:12] VITALS: BP 140/103; PULSE 85; TEMP 98.1
[2016-12-05] MEDS ORDERED: PRENATAL VITAMINS W/ FOLIC ACID TABLET (FP) PO SCH (10:00)
[2016-12-05] MEDS ORDERED: PNEUMOCOCCAL 23 VACCINE 0.5 ML VIAL IM ONE (12:00)
[2016-12-05] MEDS ORDERED: CYCLOBENZAPRINE HCL 10 MG TABLET (FP) PO PRN (12:49)
--- NOTE | 2016-12-05 12:52 | PN ---
S Progress Note Note: patient is having withdrawal symptom, Vital Signs Temperature 98.1 F 12/05/16 07:12 Pulse Rate 85 12/05/16 07:12 Respiratory Rate 18 12/05/16 07:12 Blood Pressure 140/103 12/05/16 07:12 O2 Sat by Pulse Oximetry (%) flexeril 10 mgs po tid prn for 72 hrs clonidine 0.1 mg po bid for 72 hrs close monitoring
[2016-12-05] MEDS ORDERED: PNEUMOC 13-VAL CONJ-DIP CRM/PF 0.5 ML DISP.SYRIN IM ONE (13:58)
[2016-12-05] MEDS ORDERED: cloNIDine HCL 0.1 MG TABLET PO SCH (22:00)
--- NOTE | 2016-12-06 07:57 | PN ---
S Progress Note Note: It was informed by medical staff that patient eloped off the unit today.
== END 2016-12-05 14:05 | disposition left against medical advice (07) | DRG 770 ==
LOC: YASAS 13:23 → Y5N 13:25
PROVIDERS: ADMIT Psychiatry & Neurology Psychiatry; ATTEND Psychiatry & Neurology Psychiatry
PROC: HZ42ZZZ Group Counseling for Substance Abuse Treatment, Cognitive-Behavioral (ICD-10-PCS; principal; 2016-12-04)
DX: F11.20 Opioid dependence, uncomplicated (principal); F10.20 Alcohol dependence, uncomplicated; F17.210 Nicotine dependence, cigarettes, uncomplicated

== ENCOUNTER 2017-01-11 10:12 | Inpatient (IN) | payer OTHER ==
[2017-01-11 10:46] VITALS: BMI 35.4
--- NOTE | 2017-01-11 12:49 | HP ---
CIWA Score - CIWA Score Nausea/Vomitin-No Nausea/No Vomiting Muscle Tremors: 4-Moderate,w/Arms Extend Anxiety: 3 Agitation: 4-Moderately Restless Paroxysmal Sweats: 3 Orientation: 0-Oriented Tacttile Disturbances: 0-None Auditory Disturbances: 0-None Visual Disturbances: 0-None Headache: 0-None Present CIWA-Ar Total Score: 14 Admission ROS BHS - HPI Chief Complaint: I am here to detox and get better. Allergies/Adverse Reactions: Allergies Allergy/AdvReac Type Severity Reaction Status Date / Time peanut Allergy Severe Hives Verified 01/11/17 11:23 No Known Drug Allergies Allergy Verified 01/11/17 11:23 History of Present Illness: pt is a 41yr old male with a history of alcohol and cocaine dependence seeking detox for treatment. Exam Limitations: No Limitations - Ebola screening Have you traveled outside of the country in the last 21 days: No Have you had contact with anyone from an Ebola affected area: No Have you been sick,other than usual withdrawal symptoms: No Do you have a fever: No - Review of Systems Constitutional: Chills, Diaphoresis, Night Sweats, Changes in sleep EENT: reports: No Symptoms Reported Respiratory: reports: No Symptoms reported Cardiac: reports: No Symptoms Reported GI: reports: Poor Appetite, Poor Fluid Intake : reports: No Symptoms Reported Musculoskeletal: reports: No Symptoms Reported Integumentary: reports: Flushing, Sweating Neuro: reports: Headache, Tingling, Tremors Endocrine: reports: Excessive Sweating, Flushing, Intolerance to Cold, Intolerance to Heat Hematology: reports: No Symptoms Reported Psychiatric: reports: Judgement Intact, Mood/Affect Appropiate, Orientated x3, Agitated, Anxious Other Systems: Reviewed and Negative Patient History - Patient Medical History Hx Anemia: No Hx Asthma: No Hx Chronic Obstructive Pulmonary Disease (COPD): No Hx Cancer: No Hx Cardiac Disorders: No Hx Congestive Heart Failure: No Hx Hypertension: Yes Hx Hypercholesterolemia: No Hx Pacemaker: No HX Cerebrovascular Accident: No Hx Seizures: No Hx Dementia: No Hx Diabetes: No Hx Gastrointestinal Disorders: No Hx Liver Disease: No Hx Genitourinary Disorders: No Hx Sexually Transmitted Disorders: No Hx Renal Disease (ESRD): No Hx Thyroid Disease: No Hx Human Immunodeficiency Virus (HIV): No (NEGATIVE HX last 06/03) Hx Hepatitis C: No (negative) Hx Depression: No Hx Suicide Attempt: No (denies) Hx Bipolar Disorder: No Hx Schizophrenia: No - Patient Surgical History Past Surgical History: No Hx Neurologic Surgery: No Hx Cataract Extraction: No Hx Cardiac Surgery: No Hx Lung Surgery: No Hx Breast Surgery: No Hx Breast Biopsy: No Hx Abdominal Surgery: No Hx Appendectomy: No Hx Cholecystectomy: Yes (2012) Hx Genitourinary Surgery: No Hx Section: No Hx Orthopedic Surgery: No Anesthesia Reaction: No - PPD History Previous Implant?: Yes Documented Results: Negative w/proof Implanted On Prior [facility] Admission?: Yes Date: 12/01/16 Results: 0mm PPD to be Administered?: No - Reproductive History Patient is a Female of Child Bearing Age (11 -55 yrs old): No - Smoking Cessation Smoking history: Current every day smoker Have you smoked in the past 12 months: Yes Aproximately how many cigarettes per day: 10 Cigars Per Day: 0 Hx Chewing Tobacco Use: No Initiated information on smoking cessation: Yes 'Breaking Loose' booklet given: 01/11/17 - Substance & Tx. History Hx Alcohol Use: Yes Hx Substance Use: Yes Substance Use Type: Alcohol, Cocaine, Heroin, Marijuana, Opiates Hx Substance Use Treatment: Yes (last detox [facility] 11/2016) - Substances Abused Alcohol Route: Oral Frequency: Daily Amount used: vodka(1 pint) Age of first use: 18 Date of Last Use: 01/10/17 Cocaine Route: Inhalation Frequency: Daily Amount used: 1/2 gram Age of first use: 18 Date of Last Use: 01/09/17 Marijuana/Hashish Route: Smoking Frequency: Daily Amount used: 2 blunts Age of first use: 19 Date of Last Use: 01/10/17 Heroin Route: Inhalation Frequency: Daily Amount used: 5 bags Age of first use: 19 Date of Last Use: 01/08/17 percocet Route: Oral Frequency: Daily Amount used: 2-3 pills Age of first use: 19 Date of Last Use: 01/08/17 Family Disease History - Family Disease History Family History: Denies Admission Physical Exam BHS - Vital Signs Vital Signs: Vital Signs - 24 hr 01/11/17 10:44 Temperature 96.9 F L Pulse Rate 102 H Respiratory 20 Rate Blood Pressure 152/90 - Physical General Appearance: Yes: Appropriately Dressed, Moderate Distress, Tremorous, Irritable, Sweating, Anxious HEENTM: Yes: Hearing grossly Normal, Normal Voice, Nasal Congestion Respiratory: Yes: Chest Non-Tender, Lungs Clear, Normal Breath Sounds, No Respiratory Distress Neck: Yes: No masses,lesions,Nodules Breast: Yes: Within Normal Limits Cardiology: Yes: Regular Rhythm, Regular Rate, S1, S2 Abdominal: Yes: Normal Bowel Sounds, Non Tender, Soft Genitourinary: Yes: Within Normal Limits Back: Yes: Normal Inspection Musculoskeletal: Yes: full range of Motion Extremities: Yes: Normal Capillary Refill, Normal Inspection, Tremors Neurological: Yes: Fully Oriented, Alert, Normal Response Integumentary: Yes: Normal Color, Diaphoresis Lymphatic: Yes: Within Normal Limits - Diagnostic (1) Alcohol dependence with uncomplicated withdrawal Current Visit: Yes Status: Chronic (2) Nicotine dependence Current Visit: Yes Status: Chronic Qualifiers: Nicotine product type: cigarettes Substance use status: uncomplicated Qualified Code(s): F17.210 - Nicotine dependence, cigarettes, uncomplicated (3) Cannabis dependence, uncomplicated Current Visit: Yes Status: Chronic (4) Cocaine dependence, uncomplicated Current Visit: Yes Status: Chronic Cleared for Admission [facility] - Detox or Rehab [facility] Level of Care: Medically Managed Detox Regimen/Protocol: Librium [facility] Breath Alcohol Content Breath Alcohol Content: 0 Urine Drug Screen - Results Drug Screen Negative: No Urine Drug Screen Results: THC-Marijuana, ALAN-Cocaine, BZO-Benzodiazepines
[2017-01-11] MEDS ORDERED: MAGNESIUM CITRATE 300 ML BOTTLE PO PRN (12:51)
[2017-01-11] MEDS ORDERED: diphenhydrAMINE HCL 50 MG CAPSULE PO PRN (12:51)
[2017-01-11] MEDS ORDERED: LOPERAMIDE HCL 2 MG CAPSULE PO PRN (12:51)
[2017-01-11] MEDS ORDERED: MAGNESIUM HYDROX 2400MG/30ML ORAL SUSPENSION 30 ML CUP PO PRN (12:51)
[2017-01-11] MEDS ORDERED: chlordiazePOXIDE HCL 25 MG CAPSULE PO PRN (12:51)
[2017-01-11] MEDS ORDERED: MAG HYDROX/AL HYDROX/SIMETH 30 ML UNIT-DOSE CUP PO PRN (12:51)
[2017-01-11] MEDS ORDERED: ACETAMINOPHEN 325 MG TABLET (FP) PO PRN (12:51)
[2017-01-11] MEDS ORDERED: hydrOXYzine PAMOATE 50 MG CAPSULE (FP) PO PRN (12:51)
[2017-01-11] MEDS ORDERED: P-EPHED 60MG/TRIPROLIDI 2.5MG TABLET PO PRN (12:51)
[2017-01-11] MEDS ORDERED: MENTHOL/PHENOL 1 EACH UD MM PRN (12:51)
[2017-01-11] MEDS ORDERED: IBUPROFEN 400 MG TABLET (FP) PO PRN (12:51)
[2017-01-11] MEDS ORDERED: NICOTINE POLACRILEX 4 MG GUM BUC PRN (12:51)
[2017-01-11] MEDS ORDERED: guaiFENesin/D-METHORPHAN HB 10 ML UNIT-DOSE CUPS PO PRN (12:51)
[2017-01-11] MEDS ORDERED: chlordiazePOXIDE HCL 25 MG CAPSULE PO ONE (14:15)
[2017-01-11] MEDS: LISINOPRIL 10 MG TABLET (FP) PO SCH (15:24)
[2017-01-11] MEDS: chlordiazePOXIDE HCL 25 MG CAPSULE PO SCH ×2 (16:56→22:41)
[2017-01-11 17:21] LABS: MCH 30.3 pg (25.7-33.7); MCHC 33.6 g/dl (32.0-35.9); MEAN PLT VOLUME 10.2 fl (7.5-11.1); PLATELET COUNT 235 K/MM3 (134-434); RDW 13.2 % (11.9-15.9); WHITE BLOOD COUNT 5.5 K/mm3 (4.0-10.0)
[2017-01-11 17:41] LABS: ALBUMIN 4.2 g/dl (3.4-5.0); ANION GAP 7 (8-16); CALCIUM 9.8 mg/dL (8.5-10.1); CO2 29 mmol/L (21-32); CREATININE 1.2 mg/dL (0.7-1.3); GLUCOSE,RANDOM 103 mg/dL (74-106); SGOT/AST 11 U/L (15-37); SGPT/ALT 31 U/L (12-78)
[2017-01-11 17:42] LABS: ALK PHOS 57 U/L (45-117); BILIRUBIN,TOTAL 0.5 mg/dL (0.2-1.0); TOT PROT 7.4 g/dl (6.4-8.2)
[2017-01-11] MEDS ORDERED: THIAMINE HCL 100 MG TABLET (FP) PO SCH (22:00)
[2017-01-11 22:16] LABS: URINE APPEARANCE CLEAR; URINE BILIRUBIN NEGATIVE (NEGATIVE); URINE BLOOD NEGATIVE (NEGATIVE); URINE COLOR YELLOW; URINE GLUCOSE (UA) NEGATIVE (NEGATIVE); URINE KETONE NEGATIVE (NEGATIVE); URINE LEUK ESTERASE NEGATIVE (NEGATIVE); URINE NITRITE NEGATIVE (NEGATIVE); URINE PROTEIN NEGATIVE (NEGATIVE); URINE UROBILINOGEN NEGATIVE mg/dL (0.2-1.0)
[2017-01-12] MEDS: chlordiazePOXIDE HCL 25 MG CAPSULE PO SCH ×2 (06:13→11:10)
[2017-01-12] MEDS ORDERED: PRENATAL VITAMINS W/ FOLIC ACID TABLET (FP) PO SCH (10:00)
[2017-01-12] MEDS ORDERED: NICOTINE 21 MG/24 HOURS TOPICAL PATCH TD SCH (10:00)
--- NOTE | 2017-01-12 10:46 | EKG ---
Test Reason : Blood Pressure : / mmHG Vent. Rate : 094 BPM Atrial Rate : 094 BPM P-R Int : 122 ms QRS Dur : 104 ms QT Int : 344 ms P-R-T Axes : 049 020 061 degrees QTc Int : 430 ms NORMAL SINUS RHYTHM NONSPECIFIC T WAVE ABNORMALITY ABNORMAL ECG WHEN COMPARED WITH ECG OF 29-NOV-2016 12:42, ABERRANT CONDUCTION IS NO LONGER PRESENT Confirmed by VAUGHN LEW MD ([id number]) on 01/12/2017 10:46:11 AM Referred By: Confirmed By:VAUGHN LEW MD
[2017-01-12] MEDS: LISINOPRIL 10 MG TABLET (FP) PO SCH (11:10)
--- NOTE | 2017-01-12 11:42 | PN ---
[facility] CIWA - CIWA Score Nausea/Vomitin Muscle Tremors: 3 Anxiety: 3 Agitation: 3 Paroxysmal Sweats: 1-Minimal Palms Moist Orientation: 0-Oriented Tacttile Disturbances: 1-Very Mild Itch/Numbness Auditory Disturbances: 1-Very Mild Visual Disturbances: 0-None Headache: 2-Mild CIWA-Ar Total Score: 17 BHS Progress Note (SOAP) Subjective: ALERT,IRRITABLE,ANXIOUS,INTERRUPTED SLEEP,TREMOR Objective: 01/12/17 11:39 Vital Signs Temperature 97.5 F L 01/12/17 06:52 Pulse Rate 93 H 01/12/17 06:52 Respiratory Rate 18 01/12/17 06:52 Blood Pressure 112/80 01/12/17 06:52 O2 Sat by Pulse Oximetry (%) EKG NSR 94/MIN,INVERTED T IN V4V5 NO CHEST PAIN,NO SOB,NO DIZZINESS Laboratory Last Values WBC 5.5 K/mm3 (4.0-10.0) D 01/11/17 13:00 RBC 5.12 M/mm3 (4.00-5.60) 01/11/17 13:00 Hgb 15.5 GM/dL (11.7-16.9) 01/11/17 13:00 Hct 46.1 % (35.4-49) 01/11/17 13:00 MCV 90.0 fl (80-96) 01/11/17 13:00 MCH 30.3 pg (25.7-33.7) 01/11/17 13:00 MCHC 33.6 g/dl (32.0-35.9) 01/11/17 13:00 RDW 13.2 % (11.9-15.9) 01/11/17 13:00 Plt Count 235 K/MM3 (134-434) 01/11/17 13:00 MPV 10.2 fl (7.5-11.1) 01/11/17 13:00 Sodium 142 mmol/L (136-145) 01/11/17 13:00 Potassium 4.6 mmol/L (3.5-5.1) 01/11/17 13:00 Chloride 106 mmol/L (98-107) 01/11/17 13:00 Carbon Dioxide 29 mmol/L (21-32) 01/11/17 13:00 Anion Gap 7 (8-16) L 01/11/17 13:00 BUN 12 mg/dL (7-18) 01/11/17 13:00 Creatinine 1.2 mg/dL (0.7-1.3) 01/11/17 13:00 Creat Clearance w eGFR > 60 (>60) 01/11/17 13:00 Random Glucose 103 mg/dL (74-106) 01/11/17 13:00 Calcium 9.8 mg/dL (8.5-10.1) 01/11/17 13:00 Total Bilirubin 0.5 mg/dL (0.2-1.0) 01/11/17 13:00 AST 11 U/L (15-37) L D 01/11/17 13:00 ALT 31 U/L (12-78) D 01/11/17 13:00 Alkaline Phosphatase 57 U/L (45-117) 01/11/17 13:00 Total Protein 7.4 g/dl (6.4-8.2) 01/11/17 13:00 Albumin 4.2 g/dl (3.4-5.0) 01/11/17 13:00 Urine Color Yellow 01/11/17 21:46 Urine Appearance Clear 01/11/17 21:46 Urine pH 7.0 (5.0-8.0) 01/11/17 21:46 Ur Specific [place] 1.020 (1.005-1.025) 01/11/17 21:46 Urine Protein Negative (NEGATIVE) 01/11/17 21:46 Urine Glucose (UA) Negative (NEGATIVE) 01/11/17 21:46 Urine Ketones Negative (NEGATIVE) 01/11/17 21:46 Urine Blood Negative (NEGATIVE) 01/11/17 21:46 Urine Nitrite Negative (NEGATIVE) 01/11/17 21:46 Urine Bilirubin Negative (NEGATIVE) 01/11/17 21:46 Urine Urobilinogen Negative mg/dL (0.2-1.0) 01/11/17 21:46 01/12/17 11:41 LABS PENDING Assessment: 01/12/17 11:41 WITHDRAWAL SYMPTOM Plan: CONTINUE DETOX
[2017-01-12 15:02] VITALS: BP 118/65; PULSE 96; TEMP 97.9
--- NOTE | 2017-01-12 15:33 | PN ---
S Progress Note Note: patient did not want to complete treatment,seen by counselor,did not want to wait,torie release ama
--- NOTE | 2017-01-12 15:35 | DS ---
[facility] Detox Discharge Summary Admission Date: 01/11/17 Discharge Date: 01/12/17 - History Present History: Alcohol Dependence, Cannabis Dependence, Cocaine Dependence Additional Comments: patient did not want to complete treatment,seen by counselor,did not want to wait,signed release ama Pertinent Past History: hypertension - Physical Exam Results Vital Signs: Vital Signs Temperature 97.9 F 01/12/17 15:02 Pulse Rate 96 H 01/12/17 15:02 Respiratory Rate 18 01/12/17 15:02 Blood Pressure 118/65 01/12/17 15:02 O2 Sat by Pulse Oximetry (%) Pertinent Admission Physical Exam Findings: withdrawal symptom - Medication Discharge Medications: Ambulatory Orders Lisinopril [Prinivil] 10 mg PO DAILY 01/11/17 - Diagnosis (1) Alcohol dependence with uncomplicated withdrawal Current Visit: Yes Status: Chronic (2) Cannabis dependence, uncomplicated Current Visit: Yes Status: Chronic (3) Cocaine dependence, uncomplicated Current Visit: Yes Status: Chronic (4) Nicotine dependence Current Visit: Yes Status: Chronic Qualifiers: Nicotine product type: cigarettes Substance use status: uncomplicated Qualified Code(s): F17.210 - Nicotine dependence, cigarettes, uncomplicated (5) PCP dependence Current Visit: No Status: Chronic - AMA Did Patient Leave Against Medical Advice: Yes
[2017-01-12] MEDS ORDERED: chlordiazePOXIDE HCL 25 MG CAPSULE PO SCH (17:00)
[2017-01-13] MEDS ORDERED: chlordiazePOXIDE 5 MG CAPSULE PO SCH (17:00)
[2017-01-14] MEDS ORDERED: chlordiazePOXIDE HCL 10 MG CAPSULE PO SCH (17:00)
== END 2017-01-12 14:10 | disposition left against medical advice (07) | DRG 770 ==
LOC: YASAS 10:12 → Y6N 14:03
PROVIDERS: ADMIT Internal Medicine; ATTEND Internal Medicine
PROC: HZ2ZZZZ Detoxification Services for Substance Abuse Treatment (ICD-10-PCS; principal; 2017-01-11)
DX: F10.230 Alcohol dependence with withdrawal, uncomplicated (principal); F14.20 Cocaine dependence, uncomplicated; F16.20 Hallucinogen dependence, uncomplicated; F12.20 Cannabis dependence, uncomplicated; F17.210 Nicotine dependence, cigarettes, uncomplicated; I10 Essential (primary) hypertension
CPT/HCPCS: 36415; 80053; 81003; 85027; 86593; 93005; 93010

== ENCOUNTER 2017-09-10 15:56 | Emergency (ER) | payer OTHER ==
[2017-09-10 16:05] VITALS: BMI 30.5
--- NOTE | 2017-09-10 16:10 | PDOC ---
History of Present Illness - General Chief Complaint: Syncope/Near Syncope Stated Complaint: CHEST PAIN Time Seen by Provider: 09/10/17 16:10 Past History - Past Medical History Allergies/Adverse Reactions: Allergies Allergy/AdvReac Type Severity Reaction Status Date / Time peanut Allergy Severe Hives Verified 09/10/17 15:58 No Known Drug Allergies Allergy Verified 09/10/17 15:58 Home Medications: Ambulatory Orders Lisinopril [Prinivil] 10 mg PO DAILY 01/11/17 Anemia: No Asthma: No Cancer: No Cardiac Disorders: No CVA: No COPD: No CHF: No Dementia: No Diabetes: No GI Disorders: No Disorders: No HTN: Yes Hypercholesterolemia: No Kidney Stones: No Liver Disease: No Seizures: No Thyroid Disease: No - Surgical History Abdominal Surgery: No Appendectomy: No Cardiac Surgery: No Cholecystectomy: Yes (2012) Lung Surgery: No Neurologic Surgery: No Orthopedic Surgery: No - Reproductive History Testicular Surgery: No - Suicide/Smoking/Psychosocial Hx Smoking History: Current some day smoker Have you smoked in the past 12 months: Yes Number of Cigarettes Smoked Daily: 10 Cigars Per Day: 0 Information on smoking cessation initiated: No 'Breaking Loose' booklet given: 01/11/17 Hx Alcohol Use: Yes Drug/Substance Use Hx: Yes Substance Use Type: Alcohol, Cocaine, Heroin, Marijuana, Opiates Hx Substance Use Treatment: Yes (last detox [facility] 11/2016) *Physical Exam - Vital Signs Last Vital Signs Temp Pulse Resp BP Pulse Ox 98.6 F 99 H 17 116/80 97 09/10/17 15:58 09/10/17 15:58 09/10/17 15:58 09/10/17 15:58 09/10/17 15:58 Medical Decision Making - Medical Decision Making 09/10/17 17:35 Patient noted to have eloped. *DC/Admit/Observation/Transfer Diagnosis at time of Disposition: History of elopement from health care facility - Discharge Dispostion Disposition: ELOPED - Referrals - Patient Instructions - Post Discharge Activity
--- NOTE | 2017-09-10 16:35 | PDOC ---
Attending Attestation - Resident Resident Name: Nish Peralta - ED Attending Attestation I have performed the following: I have examined & evaluated the patient, The case was reviewed & discussed with the resident, I agree w/resident's findings & plan, Exceptions are as noted - HPI HPI: 09/10/17 20:10 this 42 yo male p/w after several wpisodes of ?? syncope,falling PMH significant for etoh abuse - Physicial Exam PE: 09/10/17 20:10 pt was wnwd 42 yo male with abrasions to his legs in various stages of healing, no scalp lacerations,lungs cta b/l,cvs [id number],neuro moving all extremities - Medical Decision Making 09/10/17 20:21 ct scan head no acute intracranial pathology ct scan c spine no subluxation,no fracture pt eloped
[2017-09-10 17:12] VITALS: BP 104/88; PULSE 88; TEMP 98.4
--- NOTE | 2017-09-11 08:45 | EKG ---
Test Reason : Blood Pressure : / mmHG Vent. Rate : 099 BPM Atrial Rate : 099 BPM P-R Int : 118 ms QRS Dur : 106 ms QT Int : 374 ms P-R-T Axes : 046 038 050 degrees QTc Int : 479 ms NORMAL SINUS RHYTHM NONSPECIFIC T WAVE ABNORMALITY PROLONGED QT ABNORMAL ECG WHEN COMPARED WITH ECG OF 11-JAN-2017 14:09, T WAVE INVERSION NO LONGER EVIDENT IN ANTERIOR LEADS Confirmed by TIFFANY SLAUGHTER, FLORINA ([id number]) on 09/11/2017 8:45:15 AM Referred By: Confirmed By:FLORINA ALLEN MD
== END 2017-09-10 17:52 | disposition left against medical advice (07) ==
LOC: JER 15:56
DX: R55 Syncope and collapse (principal)
CPT/HCPCS: 70450-TC; 72125-TC; 93005; 93010; 99285-25

== ENCOUNTER 2017-09-16 15:31 | Emergency (ER) | payer OTHER ==
[2017-09-16 15:40] VITALS: BP 111/64; PULSE 91; TEMP 98.2; BMI 30.8
--- NOTE | 2017-09-16 16:40 | PDOC ---
History of Present Illness - General Chief Complaint: Pain Stated Complaint: ABD PAIN, NAUSEA Time Seen by Provider: 09/16/17 15:51 History Source: Patient, Parent(s) Exam Limitations: No Limitations - History of Present Illness Travel History: No Timing/Duration: reports: changing over time Quality: reports: mild, moderate Abdominal Pain Onset Location: reports: generalized abdomen Pain Radiation: reports: no radiation Activities at Onset: reports: none Past History - Travel Traveled outside of the country in the last 30 days: No Close contact w/someone who was outside of country & ill: No - Past Medical History Allergies/Adverse Reactions: Allergies Allergy/AdvReac Type Severity Reaction Status Date / Time peanut Allergy Severe Hives Verified 09/16/17 15:40 No Known Drug Allergies Allergy Verified 09/16/17 15:40 Home Medications: Ambulatory Orders Lisinopril [Prinivil] 10 mg PO DAILY 01/11/17 Ondansetron [Zofran *Odt*] 4 mg SL PRN PRN #14 od.tablet 09/16/17 Anemia: No Asthma: No Cancer: No Cardiac Disorders: No CVA: No COPD: No CHF: No Dementia: No Diabetes: No GI Disorders: No Disorders: No HTN: Yes Hypercholesterolemia: No Kidney Stones: No Liver Disease: No Seizures: No Thyroid Disease: No - Surgical History Abdominal Surgery: No Appendectomy: No Cardiac Surgery: No Cholecystectomy: Yes (2012) Lung Surgery: No Neurologic Surgery: No Orthopedic Surgery: No - Reproductive History Testicular Surgery: No - Suicide/Smoking/Psychosocial Hx Smoking History: Current every day smoker Have you smoked in the past 12 months: Yes Number of Cigarettes Smoked Daily: 10 Cigars Per Day: 0 Information on smoking cessation initiated: No 'Breaking Loose' booklet given: 01/11/17 Hx Alcohol Use: Yes Drug/Substance Use Hx: Yes Substance Use Type: Alcohol, Cocaine, Heroin, Marijuana, Opiates Hx Substance Use Treatment: Yes (last detox [facility] 11/2016) Abd/GI Specific PMHX - Complaint Specific PMHX Hepatitis: No Pancreatitis: No Review of Systems - Review of Systems Able to Perform ROS?: Yes Is the patient limited Kazakh proficient: Yes Constitutional: Yes: Symptoms Reported, See HPI, Loss of Appetite, Malaise. No : Fever HEENTM: Yes: See HPI. No: Symptoms Reported Respiratory: Yes: See HPI. No: Symptoms reported, Cough ABD/GI: Yes: Symptoms Reported, See HPI, Abdominal Distended, Nausea, Vomiting ( once yesterday , once today/). No: Constipated, Diarrhea, Abdominal cramping : Yes: See HPI. No: Symptoms Reported, Burning, Dysuria, Frequency, Flank Pain, Hematuria Musculoskeletal: Yes: Symptoms Reported, See HPI Integumentary: No: Symptoms Reported Neurological: Yes: See HPI. No: Symptoms reported All Other Systems: Reviewed and Negative *Physical Exam - Vital Signs Last Vital Signs Temp Pulse Resp BP Pulse Ox 98.2 F 91 H 18 111/64 97 09/16/17 15:37 09/16/17 15:37 09/16/17 15:37 09/16/17 15:37 09/16/17 15:37 - Physical Exam General Appearance: Yes: Nourished, Appropriately Dressed. No: Apparent Distress HEENT: positive: SINDHU, Normal ENT Inspection, TMs Normal, Pharynx Normal Neck: positive: Tender, Supple. negative: Lymphadenopathy (R), Lymphadenopathy (L) Respiratory/Chest: positive: Lungs Clear, Normal Breath Sounds Gastrointestinal/Abdominal: positive: Normal Bowel Sounds, Soft. negative: Organomegaly, Distended, Guarding, Rebound, Tenderness Musculoskeletal: positive: Normal Inspection. negative: CVA Tenderness Extremity: positive: Normal Capillary Refill, Normal Inspection, Normal Range of Motion Integumentary: positive: Normal Color, Dry, Pale Neurologic: positive: respiratory services manager II-XII NML intact, Fully Oriented, Alert, Normal Mood/ Affect, Normal Response, Motor Strength 5/5 Progress Note - Progress Note Progress Note: Mild gastroenteritis, urinalysis negative, we'll treat conservatively and add Zofran *DC/Admit/Observation/Transfer Diagnosis at time of Disposition: Gastroenteritis - Discharge Dispostion Disposition: HOME Condition at time of disposition: Stable Decision to Admit order: No - Prescriptions Prescriptions: Ondansetron [Zofran *Odt*] 4 mg SL PRN PRN #14 od.tablet PRN Reason: vomiting - Referrals - Patient Instructions Printed Discharge Instructions: DI for Viral Gastroenteritis -- Adult Additional Instructions: Rest, drink lots of fluids: Teas, water, soups Geno rishi, carbonated beverages for the bubbles May try peppermint teas Avoid heavy , spicy or fatty foods until symptoms have resolved Avoid contact with others until fevers and symptoms resolved Lots of handwashing and good hygiene Continue [id number] medications for symptomatic relief Tylenol or Motrin for fever and pain May use Zofran-one tablet dissolved on tongue as needed for nauseousness. May repeat times one every 8 hours Followup with private physician in one to 2 days as needed Return to emergency department for worsened symptoms, fevers, dehydration - Post Discharge Activity Forms/Work/School Notes: Back to Work
[2017-09-16 16:49] LABS: URINE APPEARANCE CLEAR; URINE BILIRUBIN NEGATIVE (<2.0 mg/dL); URINE COLOR LTYELLOW; URINE GLUCOSE (UA) NEGATIVE (NEGATIVE); URINE KETONE NEGATIVE (NEGATIVE); URINE LEUK ESTERASE NEGATIVE (NEGATIVE); URINE NITRITE NEGATIVE (NEGATIVE); URINE PROTEIN NEGATIVE (NEGATIVE); URINE UROBILINOGEN NEGATIVE mg/dL (0.2-1.0)
== END 2017-09-16 17:35 | disposition home or self-care (01) ==
LOC: JER 15:31
DX: K52.9 Noninfective gastroenteritis and colitis, unspecified (principal); F17.210 Nicotine dependence, cigarettes, uncomplicated
CPT/HCPCS: 81003; 99282-25

== ENCOUNTER 2017-10-25 12:25 | Inpatient (IN) | payer OTHER ==
[2017-10-25 13:01] VITALS: BMI 29.0
--- NOTE | 2017-10-25 16:02 | HP ---
CIWA Score - CIWA Score Nausea/Vomitin Muscle Tremors: 3 Anxiety: 3 Agitation: 3 Paroxysmal Sweats: 1-Minimal Palms Moist Orientation: 0-Oriented Tacttile Disturbances: 1-Very Mild Itch/Numbness Auditory Disturbances: 1-Very Mild Visual Disturbances: 0-None Headache: 2-Mild CIWA-Ar Total Score: 17 Admission ROS BHS - HPI Chief Complaint: i need help to stop drinking alcohol,cocaine,marijuana dependence,seeking detox, withdrawal symptom,last detox 04/02 unknown facility syncope htn no med also abused percocet weight loss nicotine dependence s/p lap cholecystectomy Allergies/Adverse Reactions: Allergies Allergy/AdvReac Type Severity Reaction Status Date / Time peanut Allergy Severe Hives Verified 10/25/17 15:51 No Known Drug Allergies Allergy Verified 10/25/17 15:51 History of Present Illness: this 42 years old male with alcohol,cocaine marijuana dependence with percocet abused - Ebola screening Have you traveled outside of the country in the last 21 days: No (N) Have you had contact with anyone from an Ebola affected area: No Have you been sick,other than usual withdrawal symptoms: No Do you have a fever: No - Review of Systems Constitutional: Chills, Diaphoresis, Loss of Appetite, Unintentional Wgt. Loss EENT: reports: Tearing, Nose Congestion Respiratory: reports: No Symptoms reported Cardiac: reports: No Symptoms Reported GI: reports: Diarrhea, Nausea, Vomiting, Abdominal cramping : reports: No Symptoms Reported Musculoskeletal: reports: Back Pain, Muscle Pain Integumentary: reports: Dryness Neuro: reports: Headache, Tremors Endocrine: reports: No Symptoms Reported Hematology: reports: No Symptoms Reported Psychiatric: reports: No Sypmtoms Reported, Judgement Intact, Mood/Affect Appropiate, Orientated x3 Patient History - Patient Medical History Hx Anemia: No Hx Asthma: No Hx Chronic Obstructive Pulmonary Disease (COPD): No Hx Cancer: No Hx Cardiac Disorders: No Hx Congestive Heart Failure: No Hx Hypertension: Yes (non compliance) Hx Hypercholesterolemia: No Hx Pacemaker: No HX Cerebrovascular Accident: No Hx Seizures: No Hx Dementia: No Hx Diabetes: No Hx Gastrointestinal Disorders: No Hx Liver Disease: No Hx Genitourinary Disorders: No Hx Sexually Transmitted Disorders: No Hx Renal Disease (ESRD): No Hx Thyroid Disease: No Hx Human Immunodeficiency Virus (HIV): No (NEGATIVE HX last 06/03) Hx Hepatitis C: No (negative) Hx Depression: No Hx Suicide Attempt: No (denies) Hx Bipolar Disorder: No Hx Schizophrenia: No Other Medical History: no suicida,no homicidal - Patient Surgical History Past Surgical History: No Hx Neurologic Surgery: No Hx Cataract Extraction: No Hx Cardiac Surgery: No Hx Lung Surgery: No Hx Breast Surgery: No Hx Breast Biopsy: No Hx Abdominal Surgery: No Hx Appendectomy: No Hx Cholecystectomy: Yes (2012) Hx Genitourinary Surgery: No Hx Section: No Hx Orthopedic Surgery: No Anesthesia Reaction: No - PPD History Previous Implant?: Yes Documented Results: Positive w/proof Implanted On Prior R Admission?: Yes Date: 12/01/16 Results: 0mm PPD to be Administered?: No - Smoking Cessation Smoking history: Current every day smoker Have you smoked in the past 12 months: Yes Aproximately how many cigarettes per day: 10 Cigars Per Day: 0 Hx Chewing Tobacco Use: No Initiated information on smoking cessation: Yes 'Breaking Loose' booklet given: 10/25/17 - Substance & Tx. History Hx Alcohol Use: Yes Hx Substance Use: Yes Substance Use Type: Cocaine, Marijuana Hx Substance Use Treatment: Yes (04/02 unknow facility) - Substances Abused Alcohol Route: Oral Frequency: Daily Amount used: 1/2 PINT LIQUOR Age of first use: 18 Date of Last Use: 10/25/17 Cocaine Route: Inhalation Frequency: 3-6 times per week Amount used: 1 GRAM Age of first use: 27 Date of Last Use: 10/21/17 Marijuana/Hashish Route: Smoking Frequency: Daily Amount used: 4 JOINTS Age of first use: 22 Date of Last Use: 10/21/17 PERCOCETS Route: Oral Frequency: 3-6 times per week Amount used: 4-5 PILLS Age of first use: 32 Date of Last Use: 10/20/17 Family Disease History - Family Disease History Family History: Denies Admission Physical Exam BHS - Vital Signs Vital Signs: Vital Signs - 24 hr 10/25/17 12:58 Temperature 97.2 F L Pulse Rate 97 H Respiratory 20 Rate Blood Pressure 143/79 - Physical General Appearance: Yes: Moderate Distress, Tremorous, Irritable, Sweating, Anxious HEENTM: Yes: Within Normal Limits, SINDHU, Pharynx Normal Respiratory: Yes: Lungs Clear, Normal Breath Sounds, No Respiratory Distress Neck: Yes: Within Normal Limits, Supple, Trachea in good position Breast: Yes: Within Normal Limits Cardiology: Yes: Within Normal Limits, Regular Rhythm, Regular Rate, S1, S2 Abdominal: Yes: Within Normal Limits, Normal Bowel Sounds, Non Tender, Flat, Soft, Surgical Scar Genitourinary: Yes: Within Normal Limits Back: Yes: Muscle Spasm Musculoskeletal: Yes: Back pain, Joint Stiffness, Muscle Pain Extremities: Yes: Normal Range of Motion, Tremors 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, Fully Oriented, Alert, Motor Strength 5/5 Integumentary: Yes: Dry Lymphatic: Yes: Within Normal Limits - Diagnostic (1) Alcohol dependence with uncomplicated withdrawal Current Visit: No Status: Chronic (2) Cannabis dependence, uncomplicated Current Visit: No Status: Chronic (3) Cocaine dependence, uncomplicated Current Visit: No Status: Chronic (4) Nicotine dependence Current Visit: No Status: Chronic Qualifiers: Nicotine product type: cigarettes Substance use status: uncomplicated Qualified Code(s): F17.210 - Nicotine dependence, cigarettes, uncomplicated (5) Opioid abuse Current Visit: Yes Status: Acute Cleared for Admission [facility] - Detox or Rehab [facility] Level of Care: Medically Managed Detox Regimen/Protocol: Librium S Breath Alcohol Content Breath Alcohol Content: 0 Urine Drug Screen - Results Drug Screen Negative: No Urine Drug Screen Results: THC-Marijuana, ALAN-Cocaine
[2017-10-25] MEDS ORDERED: MAGNESIUM CITRATE 300 ML BOTTLE PO PRN (16:13)
[2017-10-25] MEDS ORDERED: LOPERAMIDE HCL 2 MG CAPSULE PO PRN (16:13)
[2017-10-25] MEDS ORDERED: MAGNESIUM HYDROX 2400MG/30ML ORAL SUSPENSION 30 ML CUP PO PRN (16:13)
[2017-10-25] MEDS ORDERED: guaiFENesin/D-METHORPHAN HB 10 ML UNIT-DOSE CUPS PO PRN (16:13)
[2017-10-25] MEDS ORDERED: hydrOXYzine PAMOATE 25 MG CAPSULE (FP) PO PRN (16:13)
[2017-10-25] MEDS ORDERED: MAG HYDROX/AL HYDROX/SIMETH 30 ML UNIT-DOSE CUP PO PRN (16:13)
[2017-10-25] MEDS ORDERED: chlordiazePOXIDE HCL 25 MG CAPSULE PO PRN (16:13)
[2017-10-25] MEDS ORDERED: IBUPROFEN 400 MG TABLET (FP) PO PRN (16:13)
[2017-10-25] MEDS ORDERED: P-EPHED 60MG/TRIPROLIDI 2.5MG TABLET PO PRN (16:13)
[2017-10-25] MEDS ORDERED: MENTHOL/PHENOL 1 EACH UD MM PRN (16:13)
[2017-10-25] MEDS ORDERED: ACETAMINOPHEN 325 MG TABLET (FP) PO PRN (16:13)
[2017-10-25] MEDS: chlordiazePOXIDE HCL 25 MG CAPSULE PO SCH (22:27)
[2017-10-25] MEDS: THIAMINE HCL 100 MG TABLET (FP) PO SCH (22:27)
[2017-10-25] MEDS: MELATONIN 5 MG TABLETS PO PRN (22:28)
[2017-10-25 23:36] LABS: URINE APPEARANCE TURBID; URINE BILIRUBIN NEGATIVE (<2.0 mg/dL); URINE COLOR YELLOW; URINE GLUCOSE (UA) NEGATIVE (NEGATIVE); URINE KETONE NEGATIVE (NEGATIVE); URINE LEUK ESTERASE NEGATIVE (NEGATIVE); URINE NITRITE NEGATIVE (NEGATIVE); URINE PROTEIN NEGATIVE (NEGATIVE); URINE UROBILINOGEN NEGATIVE mg/dL (0.2-1.0)
[2017-10-26] MEDS: chlordiazePOXIDE HCL 25 MG CAPSULE PO SCH ×4 (05:52→22:33)
[2017-10-26 10:11] LABS: HEMATOCRIT 43.2 % (35.4-49); HEMOGLOBIN 14.8 GM/dL (11.7-16.9); MCH 30.4 pg (25.7-33.7); MCHC 34.2 g/dl (32.0-35.9); MEAN CELL VOLUME 88.7 fl (80-96); MEAN PLT VOLUME 10.1 fl (7.5-11.1); PLATELET COUNT 190 K/MM3 (134-434); RBC 4.88 M/mm3 (4.00-5.60); WHITE BLOOD COUNT 5.9 K/mm3 (4.0-10.0)
[2017-10-26 10:28] LABS: CHLORIDE 107 mmol/L (98-107); POTASSIUM 4.2 mmol/L (3.5-5.1); SODIUM 142 mmol/L (136-145)
[2017-10-26 10:40] LABS: ALBUMIN 3.4 g/dl (3.4-5.0); ALK PHOS 53 U/L (45-117); ANION GAP 9 (8-16); BILIRUBIN,TOTAL 0.3 mg/dL (0.2-1.0); BLOOD UREA NITROGEN 12 mg/dL (7-18); CALCIUM 8.7 mg/dL (8.5-10.1); CO2 26 mmol/L (21-32); GLUCOSE,RANDOM 84 mg/dL (74-106); SGOT/AST 11 U/L (15-37); SGPT/ALT 21 U/L (12-78); TOT PROT 6.1 g/dl (6.4-8.2)
[2017-10-26] MEDS: PRENATAL VITAMINS W/ FOLIC ACID TABLET (FP) PO SCH (10:54)
--- NOTE | 2017-10-26 12:12 | EKG ---
Test Reason : Blood Pressure : / mmHG Vent. Rate : 093 BPM Atrial Rate : 093 BPM P-R Int : 114 ms QRS Dur : 094 ms QT Int : 348 ms P-R-T Axes : 047 060 066 degrees QTc Int : 432 ms SINUS RHYTHM WITH PREMATURE ATRIAL COMPLEXES NONSPECIFIC T WAVE ABNORMALITY ABNORMAL ECG WHEN COMPARED WITH ECG OF 10-SEP-2017 16:04, PREMATURE ATRIAL COMPLEXES ARE NOW PRESENT NON-SPECIFIC CHANGE IN ST SEGMENT IN ANTERIOR LEADS NONSPECIFIC T WAVE ABNORMALITY NO LONGER EVIDENT IN LATERAL LEADS Confirmed by VAUGHN LEW MD (2013) on 10/26/2017 12:11:33 PM Referred By: Confirmed By:VAUGHN LEW MD
--- NOTE | 2017-10-26 14:29 | PN ---
[facility] CIWA - CIWA Score Nausea/Vomitin-No Nausea/No Vomiting Muscle Tremors: 2 Anxiety: 4-Mod. Anxious/Guarded Agitation: 3 Paroxysmal Sweats: 3 Orientation: 2-Disoriented Date<2 days Tacttile Disturbances: 0-None Auditory Disturbances: 1-Very Mild Visual Disturbances: 2-Mild Sensitivity Headache: 0-None Present CIWA-Ar Total Score: 17 BHS Progress Note (SOAP) Subjective: Tremors, Sweating, Anxious, Body Aches. Objective: PATIENT A & O X 2 (UNCERTAIN ABOUT CURRENT DAY / DATE). PATIENT OBSERVED AMBULATING ON UNIT. NO ACUTE DISTRESS. 10/26/17 14:30 Laboratory Tests 10/25/17 10/26/17 10/26/17 Unknown 07:00 07:00 WBC 5.9 RBC 4.88 Hgb 14.8 Hct 43.2 MCV 88.7 MCH 30.4 MCHC 34.2 RDW 13.0 Plt Count 190 MPV 10.1 Sodium 142 Potassium 4.2 Chloride 107 Carbon Dioxide 26 Anion Gap 9 BUN 12 Creatinine 1.0 Creat Clearance w eGFR > 60 Random Glucose 84 Calcium 8.7 Total Bilirubin 0.3 AST 11 L ALT 21 D Alkaline Phosphatase 53 Total Protein 6.1 L Albumin 3.4 Urine Color Yellow Urine Appearance Turbid Urine pH 5.0 Ur Specific [place] 1.024 Urine Protein Negative Urine Glucose (UA) Negative Urine Ketones Negative Urine Blood Negative Urine Nitrite Negative Urine Bilirubin Negative Urine Urobilinogen Negative Ur Leukocyte Esterase Negative RPR Titer 10/26/17 07:00 WBC RBC Hgb Hct MCV MCH MCHC RDW Plt Count MPV Sodium Potassium Chloride Carbon Dioxide Anion Gap BUN Creatinine Creat Clearance w eGFR Random Glucose Calcium Total Bilirubin AST ALT Alkaline Phosphatase Total Protein Albumin Urine Color Urine Appearance Urine pH Ur Specific [place] Urine Protein Urine Glucose (UA) Urine Ketones Urine Blood Urine Nitrite Urine Bilirubin Urine Urobilinogen Ur Leukocyte Esterase RPR Titer Nonreactive LABS NOTED. Assessment: 10/26/17 14:30 WITHDRAWAL SYMPTOMS. Plan: CONTINUE DETOX.
[2017-10-26] MEDS: THIAMINE HCL 100 MG TABLET (FP) PO SCH (22:33)
[2017-10-26] MEDS: MELATONIN 5 MG TABLETS PO PRN (22:34)
[2017-10-27] MEDS: chlordiazePOXIDE HCL 25 MG CAPSULE PO SCH ×3 (05:34→17:53)
[2017-10-27] MEDS: PRENATAL VITAMINS W/ FOLIC ACID TABLET (FP) PO SCH (10:32)
--- NOTE | 2017-10-27 15:55 | PN ---
[facility] CIWA - CIWA Score Nausea/Vomitin-No Nausea/No Vomiting Muscle Tremors: 3 Anxiety: 4-Mod. Anxious/Guarded Agitation: 3 Paroxysmal Sweats: 3 Orientation: 2-Disoriented Date<2 days Tacttile Disturbances: 0-None Auditory Disturbances: 0-None Visual Disturbances: 1-Very Mild Sensitivity Headache: 0-None Present CIWA-Ar Total Score: 16 BHS Progress Note (SOAP) Subjective: Tremors, Sweating, Anxious, Body Aches. Objective: PATIENT A & O X 2 (UNCERTAIN ABOUT CURRENT DAY / DATE). NO ACUTE DISTRESS. 10/27/17 16:01 Vital Signs Temperature 97.4 F L 10/27/17 09:25 Pulse Rate 58 L 10/27/17 09:25 Respiratory Rate 18 10/27/17 09:25 Blood Pressure 110/60 10/27/17 09:25 O2 Sat by Pulse Oximetry (%) Laboratory Tests 10/25/17 10/26/17 10/26/17 Unknown 07:00 07:00 WBC 5.9 RBC 4.88 Hgb 14.8 Hct 43.2 MCV 88.7 MCH 30.4 MCHC 34.2 RDW 13.0 Plt Count 190 MPV 10.1 Sodium 142 Potassium 4.2 Chloride 107 Carbon Dioxide 26 Anion Gap 9 BUN 12 Creatinine 1.0 Creat Clearance w eGFR > 60 Random Glucose 84 Calcium 8.7 Total Bilirubin 0.3 AST 11 L ALT 21 D Alkaline Phosphatase 53 Total Protein 6.1 L Albumin 3.4 Urine Color Yellow Urine Appearance Turbid Urine pH 5.0 Ur Specific [place] 1.024 Urine Protein Negative Urine Glucose (UA) Negative Urine Ketones Negative Urine Blood Negative Urine Nitrite Negative Urine Bilirubin Negative Urine Urobilinogen Negative Ur Leukocyte Esterase Negative RPR Titer 10/26/17 07:00 WBC RBC Hgb Hct MCV MCH MCHC RDW Plt Count MPV Sodium Potassium Chloride Carbon Dioxide Anion Gap BUN Creatinine Creat Clearance w eGFR Random Glucose Calcium Total Bilirubin AST ALT Alkaline Phosphatase Total Protein Albumin Urine Color Urine Appearance Urine pH Ur Specific [place] Urine Protein Urine Glucose (UA) Urine Ketones Urine Blood Urine Nitrite Urine Bilirubin Urine Urobilinogen Ur Leukocyte Esterase RPR Titer Nonreactive LABS NOTED. Assessment: 10/27/17 16:01 WITHDRAWAL SYMPTOMS. Plan: CONTINUE DETOX.
[2017-10-27 20:17] VITALS: BP 137/93; PULSE 87; TEMP 97.7
--- NOTE | 2017-10-27 21:21 | PN ---
S Progress Note Note: informed client left unit escorted by security after requesting to leave ama after disruptive behavior.
--- NOTE | 2017-10-27 21:21 | DS ---
[facility] Detox Discharge Summary Admission Date: 10/25/17 Discharge Date: 10/27/17 - History Present History: Alcohol Dependence, Cannabis Dependence, Cocaine Dependence Pertinent Past History: nicotine dependence reported opioid abuse - Physical Exam Results Vital Signs: Vital Signs Temperature 97.7 F 10/27/17 19:00 Pulse Rate 87 10/27/17 19:00 Respiratory Rate 18 10/27/17 19:00 Blood Pressure 137/93 10/27/17 19:00 O2 Sat by Pulse Oximetry (%) Pertinent Admission Physical Exam Findings: withdrawal sx's Laboratory Tests 10/25/17 10/26/17 10/26/17 Unknown 07:00 07:00 WBC 5.9 RBC 4.88 Hgb 14.8 Hct 43.2 MCV 88.7 MCH 30.4 MCHC 34.2 RDW 13.0 Plt Count 190 MPV 10.1 Sodium 142 Potassium 4.2 Chloride 107 Carbon Dioxide 26 Anion Gap 9 BUN 12 Creatinine 1.0 Creat Clearance w eGFR > 60 Random Glucose 84 Calcium 8.7 Total Bilirubin 0.3 AST 11 L ALT 21 D Alkaline Phosphatase 53 Total Protein 6.1 L Albumin 3.4 Urine Color Yellow Urine Appearance Turbid Urine pH 5.0 Ur Specific [place] 1.024 Urine Protein Negative Urine Glucose (UA) Negative Urine Ketones Negative Urine Blood Negative Urine Nitrite Negative Urine Bilirubin Negative Urine Urobilinogen Negative Ur Leukocyte Esterase Negative RPR Titer 10/26/17 07:00 WBC RBC Hgb Hct MCV MCH MCHC RDW Plt Count MPV Sodium Potassium Chloride Carbon Dioxide Anion Gap BUN Creatinine Creat Clearance w eGFR Random Glucose Calcium Total Bilirubin AST ALT Alkaline Phosphatase Total Protein Albumin Urine Color Urine Appearance Urine pH Ur Specific [place] Urine Protein Urine Glucose (UA) Urine Ketones Urine Blood Urine Nitrite Urine Bilirubin Urine Urobilinogen Ur Leukocyte Esterase RPR Titer Nonreactive - Treatment Hospital Course: Discharged Condition Good - Medication Discharge Medications: Ambulatory Orders NK [No Known Home Medication] 10/25/17 - Diagnosis (1) Alcohol dependence with uncomplicated withdrawal Status: Acute (2) Cannabis dependence, uncomplicated Status: Chronic (3) Cocaine dependence, uncomplicated Status: Chronic (4) Nicotine dependence Status: Chronic Qualifiers: Nicotine product type: cigarettes Substance use status: uncomplicated Qualified Code(s): F17.210 - Nicotine dependence, cigarettes, uncomplicated - AMA Did Patient Leave Against Medical Advice: Yes
[2017-10-27] MEDS ORDERED: chlordiazePOXIDE 5 MG CAPSULE PO SCH (23:00)
[2017-10-28] MEDS ORDERED: chlordiazePOXIDE HCL 10 MG CAPSULE PO SCH (23:00)
== END 2017-10-27 19:58 | disposition left against medical advice (07) | DRG 770 ==
LOC: YASAS 12:25 → Y3N 16:33
PROVIDERS: ADMIT Surgery; ATTEND Surgery
PROC: HZ2ZZZZ Detoxification Services for Substance Abuse Treatment (ICD-10-PCS; principal; 2017-10-25)
DX: F10.230 Alcohol dependence with withdrawal, uncomplicated (principal); F11.10 Opioid abuse, uncomplicated; F14.20 Cocaine dependence, uncomplicated; F12.20 Cannabis dependence, uncomplicated; F17.210 Nicotine dependence, cigarettes, uncomplicated; I10 Essential (primary) hypertension; Z91.14 Patient's other noncompliance with medication regimen
CPT/HCPCS: 36415; 80053; 81003; 85027; 86593; 93005; 93010

== ENCOUNTER 2018-09-22 14:36 | Inpatient (IN) | payer OTHER ==
[2018-09-22 14:48] VITALS: BMI 31.3
--- NOTE | 2018-09-22 16:19 | HP ---
CIWA Score Nausea/Vomitin Muscle Tremors: 2 Anxiety: 2 Agitation: 2 Paroxysmal Sweats: 1-Minimal Palms Moist Orientation: 0-Oriented Tacttile Disturbances: 1-Very Mild Itch/Numbness Auditory Disturbances: 1-Very Mild Visual Disturbances: 0-None Headache: 2-Mild CIWA-Ar Total Score: 13 - Admission Criteria [facility] Guidelines: Admission for Medically Managed Detox: Requires at least one of the followin. CIWA greater than 12 2. Seizures within the past 24 hours 3. Delirium tremens within the past 24 hours 4. Hallucinations within the past 24 hours 5. Acute intervention needed for co occurring medical disorder 6. Acute intervention needed for co occurring psychiatric disorder 7. Severe withdrawal that cannot be handled at a lower level of care (continued vomiting, continued diarrhea, abnormal vital signs) requiring intravenous medication and/or fluids 8. Admission ROS BHS - HPI Chief Complaint: i need help to stop drinking alcohol,cocaine and marijuana Allergies/Adverse Reactions: Allergies Allergy/AdvReac Type Severity Reaction Status Date / Time peanut Allergy Severe Hives Verified 09/22/18 14:42 No Known Drug Allergies Allergy Verified 09/22/18 14:42 History of Present Illness: this 43 years old male with alcohol,cocaine and marijuana dependence,seeking detox,withdrawal symptom, had previous admissions before,last 10/25/17 to 10/27/17 but keep relapsing hypertension no med longest period of sobriety 1 year plan for rehab after detox Exam Limitations: No Limitations - Ebola screening Have you traveled outside of the country in the last 21 days: No (N) Have you had contact with anyone from an Ebola affected area: No Do you have a fever: No - Review of Systems Constitutional: Loss of Appetite, Malaise, Night Sweats, Changes in sleep, Weakness EENT: reports: Nose Congestion Respiratory: reports: No Symptoms reported Cardiac: reports: Palpitations GI: reports: Nausea, Poor Appetite, Abdominal cramping : reports: No Symptoms Reported Musculoskeletal: reports: Back Pain, Muscle Pain Integumentary: reports: Dryness Neuro: reports: Headache, Tremors Endocrine: reports: No Symptoms Reported Hematology: reports: No Symptoms Reported Psychiatric: reports: No Sypmtoms Reported, Judgement Intact, Mood/Affect Appropiate, Orientated x3 Other Systems: Reviewed and Negative Patient History - Patient Medical History Hx Anemia: No Hx Asthma: No Hx Chronic Obstructive Pulmonary Disease (COPD): No Hx Cancer: No Hx Cardiac Disorders: No Hx Congestive Heart Failure: No Hx Hypertension: Yes (non compliance) Hx Hypercholesterolemia: No Hx Pacemaker: No HX Cerebrovascular Accident: No Hx Seizures: No Hx Dementia: No Hx Diabetes: No Hx Gastrointestinal Disorders: No Hx Liver Disease: No Hx Genitourinary Disorders: No Hx Sexually Transmitted Disorders: No Hx Renal Disease (ESRD): No Hx Thyroid Disease: No Hx Human Immunodeficiency Virus (HIV): No (NEGATIVE HX last 06/03) Hx Hepatitis C: No (negative) Hx Depression: No Hx Suicide Attempt: No (denies) Hx Bipolar Disorder: No Hx Schizophrenia: No Other Medical History: no suicidal,no homicidal - Patient Surgical History Past Surgical History: No Hx Neurologic Surgery: No Hx Cataract Extraction: No Hx Cardiac Surgery: No Hx Lung Surgery: No Hx Breast Surgery: No Hx Breast Biopsy: No Hx Abdominal Surgery: No Hx Appendectomy: No Hx Cholecystectomy: Yes (2012 [facility] in [place]) Hx Genitourinary Surgery: No Hx Section: No Hx Orthopedic Surgery: No Anesthesia Reaction: No - PPD History Previous Implant?: Yes Documented Results: Negative w/o proof Implanted On Prior [facility] Admission?: Yes Date: 12/01/16 Results: 0mm PPD to be Administered?: Yes - Smoking Cessation Smoking history: Current every day smoker Have you smoked in the past 12 months: Yes Aproximately how many cigarettes per day: 10 Cigars Per Day: 0 Hx Chewing Tobacco Use: No Initiated information on smoking cessation: Yes 'Breaking Loose' booklet given: 09/22/18 - Substance & Tx. History Hx Alcohol Use: Yes Hx Substance Use: Yes Substance Use Type: Alcohol, Cocaine Hx Substance Use Treatment: Yes ([facility] 10/25/17 to 10/27/17) - Substances abused Alcohol Substance route: Oral Frequency: Daily Amount used: 6 CANS [employer] BEER [id number] Age of first use: 18 Date of last use: 09/21/18 Cocaine Substance route: Inhalation Frequency: 3-6 times per week Amount used: 1 GRAM Age of first use: 27 Date of last use: 09/21/18 Family Disease History - Family Disease History Family History: Denies Admission Physical Exam BHS - Vital Signs Vital Signs: Vital Signs - 24 hr 09/22/18 09/22/18 14:43 15:37 Temperature 99.0 F 99.0 F Pulse Rate 110 H 110 H Respiratory 20 20 Rate Blood Pressure 123/78 123/78 - Physical General Appearance: Yes: Moderate Distress, Tremorous, Irritable, Sweating HEENTM: Yes: Normal ENT Inspection, SINDHU, Pharynx Normal Respiratory: Yes: Lungs Clear, Normal Breath Sounds, No Respiratory Distress Neck: Yes: Within Normal Limits, Supple, Trachea in good position Breast: Yes: Within Normal Limits Cardiology: Yes: Tachycardia Abdominal: Yes: Within Normal Limits, Normal Bowel Sounds, Non Tender, Flat, Soft, Surgical Scar Genitourinary: Yes: Within Normal Limits Back: Yes: Muscle Spasm Musculoskeletal: Yes: Back pain, Muscle Pain Extremities: Yes: Tremors 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, Fully Oriented, Alert, Motor Strength 5/5 Integumentary: Yes: Dry Lymphatic: Yes: Within Normal Limits - Diagnostic (1) Alcohol dependence with uncomplicated withdrawal Current Visit: No Status: Acute (2) Cocaine dependence, uncomplicated Current Visit: No Status: Chronic (3) Nicotine dependence Current Visit: No Status: Chronic Qualifiers: Nicotine product type: cigarettes Substance use status: uncomplicated Qualified Code(s): F17.210 - Nicotine dependence, cigarettes, uncomplicated (4) History of laparoscopic cholecystectomy Current Visit: Yes Status: Acute (5) Alcohol dependence with uncomplicated intoxication Current Visit: Yes Status: Acute Cleared for Admission S - Detox or Rehab [facility] Level of Care: Medically Managed Detox Regimen/Protocol: Librium Breathalyzer - Breathalyzer Breathalyzer: 0.151 Urine Drug Screen - Test Device Lot number: [id number] Expiration date: 06/14/20 - Control Is test valid?: Yes - Results Drug screen NEGATIVE: No Urine drug screen results: THC-Marijuana, ALAN-Cocaine, BZO-Benzodiazepines Inpatient Rehab Admission - Rehab Decision to Admit Inpatient rehab admission?: No
[2018-09-22] MEDS ORDERED: METHOCARBAMOL 500 MG TABLET PO PRN (16:26)
[2018-09-22] MEDS ORDERED: chlordiazePOXIDE HCL 25 MG CAPSULE PO PRN (16:26)
[2018-09-22] MEDS ORDERED: MENTHOL/PHENOL 1 EACH UD MM PRN (16:26)
[2018-09-22] MEDS ORDERED: BISMUTH SUBSALICYLATE 524 MG/30 ML UD PO PRN (16:26)
[2018-09-22] MEDS ORDERED: hydrOXYzine PAMOATE 25 MG CAPSULE (FP) PO PRN (16:26)
[2018-09-22] MEDS ORDERED: IBUPROFEN 400 MG TABLET (FP) PO PRN (16:26)
[2018-09-22] MEDS ORDERED: MAGNESIUM CITRATE 300 ML BOTTLE PO PRN (16:26)
[2018-09-22] MEDS ORDERED: MAGNESIUM HYDROX 2400MG/30ML ORAL SUSPENSION 30 ML CUP PO PRN (16:26)
[2018-09-22] MEDS ORDERED: MAG HYDROX/AL HYDROX/SIMETH 30 ML UNIT-DOSE CUP PO PRN (16:26)
[2018-09-22] MEDS ORDERED: ACETAMINOPHEN 325 MG TABLET (FP) PO PRN ×2 (16:26)
[2018-09-22] MEDS: MELATONIN 5 MG TABLETS PO PRN (23:03)
[2018-09-22] MEDS: THIAMINE HCL 100 MG TABLET (FP) PO SCH (23:04)
[2018-09-22] MEDS: chlordiazePOXIDE HCL 25 MG CAPSULE PO SCH (23:04)
[2018-09-23] MEDS: chlordiazePOXIDE HCL 25 MG CAPSULE PO SCH ×4 (05:47→22:09)
[2018-09-23] MEDS: PRENATAL VITAMINS W/ FOLIC ACID TABLET (FP) PO SCH (10:33)
[2018-09-23 10:40] LABS: ALBUMIN 4.1 g/dl (3.4-5.0); BILIRUBIN,TOTAL 0.6 mg/dL (0.2-1); BLOOD UREA NITROGEN 11.7 mg/dL (7-18); CALCIUM 9.1 mg/dL (8.5-10.1); POTASSIUM 3.8 mmol/L (3.5-5.1); TOT PROT 6.8 g/dl (6.4-8.2)
[2018-09-23 10:55] LABS: HEMATOCRIT 44.9 % (35.4-49); HEMOGLOBIN 15.5 GM/dL (11.7-16.9); MCH 29.9 pg (25.7-33.7); MCHC 34.6 g/dl (32.0-35.9); MEAN CELL VOLUME 86.5 fl (80-96); MEAN PLT VOLUME 9.7 fl (7.5-11.1); PLATELET COUNT 198 K/MM3 (134-434); RBC 5.19 M/mm3 (4.00-5.60); WHITE BLOOD COUNT 6.8 K/mm3 (4.0-10.0)
--- NOTE | 2018-09-23 13:31 | PN ---
S CIWA - CIWA Score Nausea/Vomitin-Mild Nausea/No Vomiting Muscle Tremors: 4-Moderate,w/Arms Extend Anxiety: 4-Mod. Anxious/Guarded Agitation: 4-Moderately Restless Paroxysmal Sweats: 3 Orientation: 0-Oriented Tacttile Disturbances: 0-None Auditory Disturbances: 0-None Visual Disturbances: 0-None Headache: 0-None Present CIWA-Ar Total Score: 16 BHS Progress Note (SOAP) Subjective: Sweating, chills, tremor Objective: 09/23/18 13:29 Last Vital Signs Temp Pulse Resp BP Pulse Ox 97.5 F L 80 18 137/82 09/23/18 09:16 09/23/18 11:00 09/23/18 11:00 09/23/18 09:16 Elevated b/p noted: could be r/t withdrawal, monitor for now Laboratory Tests 09/23/18 09/23/18 09/23/18 07:30 07:30 07:30 WBC 6.8 RBC 5.19 Hgb 15.5 Hct 44.9 MCV 86.5 MCH 29.9 MCHC 34.6 RDW 13.0 MPV 9.7 Sodium 139 Potassium 3.8 Chloride 102 Carbon Dioxide 29 Anion Gap 8 BUN 11.7 Creatinine 1.0 Est GFR (CKD-EPI)AfAm 107.87 Est GFR (CKD-EPI)NonAf 93.07 Random Glucose 91 Calcium 9.1 Total Bilirubin 0.6 AST 38 H ALT 45 Alkaline Phosphatase 90 Total Protein 6.8 Albumin 4.1 RPR Titer Nonreactive Labs reviewed Assessment: 09/23/18 13:29 Withdrawal symptoms Plan: Continue detox Encouraged PO water hydration
[2018-09-23] MEDS: THIAMINE HCL 100 MG TABLET (FP) PO SCH (22:09)
[2018-09-23] MEDS: MELATONIN 5 MG TABLETS PO PRN (22:09)
[2018-09-24 03:23] LABS: URINE APPEARANCE TURBID; URINE BILIRUBIN NEGATIVE (NEGATIVE); URINE COLOR YELLOW; URINE GLUCOSE (UA) NEGATIVE (NEGATIVE); URINE KETONE NEGATIVE (NEGATIVE); URINE LEUK ESTERASE NEGATIVE (NEGATIVE); URINE NITRITE NEGATIVE (NEGATIVE); URINE PROTEIN NEGATIVE (NEGATIVE); URINE UROBILINOGEN 0.2 mg/dL (0.2-1.0)
[2018-09-24] MEDS: chlordiazePOXIDE HCL 25 MG CAPSULE PO SCH ×2 (06:17→10:32)
[2018-09-24] MEDS: PRENATAL VITAMINS W/ FOLIC ACID TABLET (FP) PO SCH (10:32)
--- NOTE | 2018-09-24 12:33 | PN ---
S CIWA - CIWA Score Nausea/Vomitin (Stomach Cramping.) Muscle Tremors: 3 Anxiety: 3 Agitation: 1-Slight > Activity Paroxysmal Sweats: 3 Orientation: 0-Oriented Tacttile Disturbances: 1-Very Mild Itch/Numbness Auditory Disturbances: 0-None Visual Disturbances: 2-Mild Sensitivity Headache: 0-None Present CIWA-Ar Total Score: 15 BHS Progress Note (SOAP) Subjective: Tremors, Interrupted Sleep, Diarrhea, Fatigue, Stomach Cramping. Objective: PATIENT A & O X 3, OBSERVED AMBULATING ON UNIT UNASSISTED. IN NO ACUTE DISTRESS. 09/24/18 12:31 Vital Signs Temperature 96.4 F L 09/24/18 09:15 Pulse Rate 91 H 09/24/18 09:15 Respiratory Rate 18 09/24/18 09:15 Blood Pressure 132/81 09/24/18 09:15 O2 Sat by Pulse Oximetry (%) Laboratory Tests 09/23/18 09/23/18 09/23/18 07:30 07:30 07:30 WBC 6.8 RBC 5.19 Hgb 15.5 Hct 44.9 MCV 86.5 MCH 29.9 MCHC 34.6 RDW 13.0 Plt Count 198 MPV 9.7 Sodium 139 Potassium 3.8 Chloride 102 Carbon Dioxide 29 Anion Gap 8 BUN 11.7 Creatinine 1.0 Est GFR (CKD-EPI)AfAm 107.87 Est GFR (CKD-EPI)NonAf 93.07 Random Glucose 91 Calcium 9.1 Total Bilirubin 0.6 AST 38 H ALT 45 Alkaline Phosphatase 90 Total Protein 6.8 Albumin 4.1 Urine Color Urine Appearance Urine pH Ur Specific [place] Urine Protein Urine Glucose (UA) Urine Ketones Urine Blood Urine Nitrite Urine Bilirubin Urine Urobilinogen Ur Leukocyte Esterase RPR Titer Nonreactive 09/23/18 23:59 WBC RBC Hgb Hct MCV MCH MCHC RDW Plt Count MPV Sodium Potassium Chloride Carbon Dioxide Anion Gap BUN Creatinine Est GFR (CKD-EPI)AfAm Est GFR (CKD-EPI)NonAf Random Glucose Calcium Total Bilirubin AST ALT Alkaline Phosphatase Total Protein Albumin Urine Color Yellow Urine Appearance Turbid Urine pH 6.0 Ur Specific [place] 1.027 Urine Protein Negative Urine Glucose (UA) Negative Urine Ketones Negative Urine Blood Negative Urine Nitrite Negative Urine Bilirubin Negative Urine Urobilinogen 0.2 Ur Leukocyte Esterase Negative RPR Titer LABS NOTED. Assessment: 09/24/18 12:31 WITHDRAWAL SYMPTOMS. Plan: CONTINUE DETOX. INCREASE DAILY PO FLUID INTAKE. PRN PEPTO-BISMOL PO FOR DIARRHEA.
--- NOTE | 2018-09-24 12:41 | DS ---
[facility] Detox Discharge Summary Admission Date: 09/22/18 Discharge Date: 09/24/18 - History Present History: Alcohol Dependence, Cocaine Dependence Additional Comments: PATIENT REPORTS THAT HE CURRENTLY HAS A FAMILY EMERGENCY TO ATTEND TO AND THAT HE DOES NOT WISH TO REMAIN TO COMPLETE DETOX REGIMEN. RISKS OF LEAVING DETOX UNIT AGAINST MEDICAL ADVICE AND PRIOR TO COMPLETION OF DETOX REGIMEN EXPLAINED TO PATIENT. PATIENT ADVISED TO GO IMMEDIATELY TO NEAREST ER SHOULD ANY INTOLERABLE WITHDRAWAL / DETOX SYMPTOMS DEVELOP AT ANY TIME. PATIENT VERBALIZED UNDERSTANDING OF ALL INFORMATION / RECOMMENDATIONS PRESENTED TO HIM PRIOR TO DEPARTURE FROM DETOX UNIT. PATIENT LEFT DETOX UNIT IN STABLE MEDICAL CONDITION. Pertinent Past History: History Of Laparoscopic Cholecystectomy, Nicotine Dependence, HTN. - Physical Exam Results Vital Signs: Vital Signs Temperature 96.4 F L 09/24/18 09:15 Pulse Rate 91 H 09/24/18 09:15 Respiratory Rate 18 09/24/18 09:15 Blood Pressure 132/81 09/24/18 09:15 O2 Sat by Pulse Oximetry (%) Pertinent Admission Physical Exam Findings: WITHDRAWAL SYMPTOMS. Laboratory Tests 09/23/18 09/23/18 09/23/18 07:30 07:30 07:30 WBC 6.8 RBC 5.19 Hgb 15.5 Hct 44.9 MCV 86.5 MCH 29.9 MCHC 34.6 RDW 13.0 Plt Count 198 MPV 9.7 Sodium 139 Potassium 3.8 Chloride 102 Carbon Dioxide 29 Anion Gap 8 BUN 11.7 Creatinine 1.0 Est GFR (CKD-EPI)AfAm 107.87 Est GFR (CKD-EPI)NonAf 93.07 Random Glucose 91 Calcium 9.1 Total Bilirubin 0.6 AST 38 H ALT 45 Alkaline Phosphatase 90 Total Protein 6.8 Albumin 4.1 Urine Color Urine Appearance Urine pH Ur Specific [place] Urine Protein Urine Glucose (UA) Urine Ketones Urine Blood Urine Nitrite Urine Bilirubin Urine Urobilinogen Ur Leukocyte Esterase RPR Titer Nonreactive 09/23/18 23:59 WBC RBC Hgb Hct MCV MCH MCHC RDW Plt Count MPV Sodium Potassium Chloride Carbon Dioxide Anion Gap BUN Creatinine Est GFR (CKD-EPI)AfAm Est GFR (CKD-EPI)NonAf Random Glucose Calcium Total Bilirubin AST ALT Alkaline Phosphatase Total Protein Albumin Urine Color Yellow Urine Appearance Turbid Urine pH 6.0 Ur Specific [place] 1.027 Urine Protein Negative Urine Glucose (UA) Negative Urine Ketones Negative Urine Blood Negative Urine Nitrite Negative Urine Bilirubin Negative Urine Urobilinogen 0.2 Ur Leukocyte Esterase Negative RPR Titer LABS NOTED. - Treatment Hospital Course: Detox Protocol Followed, Detoxed Safely - Medication Discharge Medications: Ambulatory Orders NK [No Known Home Medication] 10/25/17 - Diagnosis (1) Alcohol dependence with uncomplicated intoxication Current Visit: Yes Status: Acute (2) History of laparoscopic cholecystectomy Current Visit: Yes Status: Chronic (3) Alcohol dependence with uncomplicated withdrawal Current Visit: Yes Status: Acute (4) Cocaine dependence, uncomplicated Current Visit: Yes Status: Chronic (5) Nicotine dependence Current Visit: Yes Status: Chronic Qualifiers: Nicotine product type: cigarettes Substance use status: uncomplicated Qualified Code(s): F17.210 - Nicotine dependence, cigarettes, uncomplicated - AMA Did Patient Leave Against Medical Advice: Yes (PT HAD FAMILY EMERGENCY, DID NOT WISH TO REMAIN TO COMPLETE DETOX REGIMEN)
[2018-09-24 12:53] VITALS: BP 142/92; PULSE 105; TEMP 97.5
[2018-09-24] MEDS ORDERED: chlordiazePOXIDE HCL 10 MG CAPSULE PO SCH (23:00)
[2018-09-24] MEDS ORDERED: chlordiazePOXIDE HCL 10 MG CAPSULE PO PRN (23:00)
[2018-09-25] MEDS ORDERED: chlordiazePOXIDE HCL 10 MG CAPSULE PO SCH (23:00)
== END 2018-09-24 12:59 | disposition left against medical advice (07) | DRG 770 ==
LOC: YASAS 14:36 → Y6N 16:42
PROVIDERS: ADMIT Surgery; ATTEND Surgery
PROC: HZ2ZZZZ Detoxification Services for Substance Abuse Treatment (ICD-10-PCS; principal; 2018-09-22)
DX: F10.230 Alcohol dependence with withdrawal, uncomplicated (principal); F10.220 Alcohol dependence with intoxication, uncomplicated; F14.20 Cocaine dependence, uncomplicated; F12.20 Cannabis dependence, uncomplicated; F17.210 Nicotine dependence, cigarettes, uncomplicated; I10 Essential (primary) hypertension; Z90.49 Acquired absence of other specified parts of digestive tract
CPT/HCPCS: 36415; 80053; 81003; 85027; 86593

== ENCOUNTER 2018-11-01 15:42 | Inpatient (IN) | payer OTHER ==
[2018-11-01 18:08] VITALS: BMI 31.3
--- NOTE | 2018-11-01 20:05 | HP ---
COWS - Scale Resting Pulse: 0= [place] 80 or Below Sweatin=Flushed/Facial Moisture Restless Observation: 1= Difficult to Sit Still Pupil Size: 1= Pupils >than Normal Bone or Joint Aches: 1= Mild Discomfort Runny Nose/ Eye Tearin= Runny Nose/Eyes GI Upset > 30mins: 2= Nausea/Diarrhea Tremor Observation: 2= Slight Tremor Visible Yawning Observation: 1= 1-2x During Session Anxiety or Irritability: 2=Irritable/Anxious Goose Flesh Skin: 0=Smooth Skin COWS Score: 14 CIWA Score Nausea/Vomitin Muscle Tremors: 3 Anxiety: 3 Agitation: 2 Paroxysmal Sweats: 2 Orientation: 0-Oriented Tacttile Disturbances: 2-Mild Itch/Numbness/Burn Auditory Disturbances: 1-Very Mild Visual Disturbances: 1-Very Mild Sensitivity Headache: 2-Mild CIWA-Ar Total Score: 18 - Admission Criteria OASAS Guidelines: Admission for Medically Managed Detox: Requires at least one of the followin. CIWA greater than 12 2. Seizures within the past 24 hours 3. Delirium tremens within the past 24 hours 4. Hallucinations within the past 24 hours 5. Acute intervention needed for co occurring medical disorder 6. Acute intervention needed for co occurring psychiatric disorder 7. Severe withdrawal that cannot be handled at a lower level of care (continued vomiting, continued diarrhea, abnormal vital signs) requiring intravenous medication and/or fluids 8. Admission [facility] Chief Complaint: 2014 abstinent 1 y abstinence Allergies/Adverse Reactions: Allergies Allergy/AdvReac Type Severity Reaction Status Date / Time peanut Allergy Severe Hives Verified 11/01/18 18:02 No Known Drug Allergies Allergy Verified 09/22/18 14:42 History of Present Illness: lorenzo has been using opiates and alcohol and cocaine for almost 20 years he reports a history of abstinence in 2014 1 y sp rehab he came today as he says he is tired of using - Ebola screening Have you traveled outside of the country in the last 21 days: No Have you had contact with anyone from an Ebola affected area: No - Review of Systems Constitutional: Malaise, Changes in sleep EENT: reports: No Symptoms Reported Respiratory: reports: No Symptoms reported Cardiac: reports: No Symptoms Reported GI: reports: Nausea, Abdominal cramping : reports: No Symptoms Reported Musculoskeletal: reports: Joint Pain, Muscle Pain Integumentary: reports: No Symptoms Reported Neuro: reports: No Symptoms reported Endocrine: reports: No Symptoms Reported Hematology: reports: No Symptoms Reported Psychiatric: reports: Anxious Patient History - Patient Medical History Hx Anemia: No Hx Asthma: No Hx Chronic Obstructive Pulmonary Disease (COPD): No Hx Cancer: No Hx Cardiac Disorders: No Hx Congestive Heart Failure: No Hx Hypertension: Yes (non compliance) Hx Hypercholesterolemia: No Hx Pacemaker: No HX Cerebrovascular Accident: No Hx Seizures: No Hx Dementia: No Hx Diabetes: No Hx Gastrointestinal Disorders: No Hx Liver Disease: No Hx Genitourinary Disorders: No Hx Sexually Transmitted Disorders: No Hx Renal Disease (ESRD): No Hx Thyroid Disease: No Hx Human Immunodeficiency Virus (HIV): No (NEGATIVE HX last 06/03) Hx Hepatitis C: No (negative) Hx Depression: No Hx Suicide Attempt: No (denies) Hx Bipolar Disorder: No Hx Schizophrenia: No - Patient Surgical History Past Surgical History: No Hx Neurologic Surgery: No Hx Cataract Extraction: No Hx Cardiac Surgery: No Hx Lung Surgery: No Hx Breast Surgery: No Hx Breast Biopsy: No Hx Abdominal Surgery: No Hx Appendectomy: No Hx Cholecystectomy: Yes (2013 [facility] in [place]) Hx Genitourinary Surgery: No Hx Section: No Hx Orthopedic Surgery: No Anesthesia Reaction: No - PPD History Date: 09/24/18 Results: 0mm - Smoking Cessation Smoking history: Current every day smoker Have you smoked in the past 12 months: Yes Aproximately how many cigarettes per day: 10 Cigars Per Day: 0 Hx Chewing Tobacco Use: No Initiated information on smoking cessation: Yes 'Breaking Loose' booklet given: 11/01/18 - Substances abused Alcohol Substance route: Oral Frequency: Daily Amount used: 6 CANS OF BEER 12OZS Age of first use: 18 Date of last use: 10/31/18 Cocaine Substance route: Inhalation Frequency: 3-6 times per week Amount used: 1 GRAM Age of first use: 27 Date of last use: 10/31/18 Heroin Substance route: Inhalation Frequency: Daily Amount used: 2bags daily Age of first use: 38 Date of last use: 10/30/18 Family Disease History - Family Disease History Family History: Denies Admission Physical Exam BHS - Vital Signs Vital Signs: Vital Signs - 24 hr 11/01/18 18:05 Temperature 97.6 F Pulse Rate 69 Respiratory 18 Rate Blood Pressure 145/89 - Physical General Appearance: Yes: Disheveled, Anxious HEENTM: Yes: EOMI Respiratory: Yes: Chest Non-Tender, Lungs Clear Neck: Yes: Within Normal Limits Breast: Yes: Breast Exam Deferred Cardiology: Yes: Regular Rhythm, S1, S2 Abdominal: Yes: Increased Bowel Sounds Genitourinary: Yes: Within Normal Limits Back: Yes: Normal Inspection Musculoskeletal: Yes: full range of Motion, Gait Steady, Pelvis Stable Extremities: Yes: Normal Capillary Refill, Normal Inspection Neurological: Yes: osteopathy doctor II-XII NML intact, Fully Oriented, Alert Integumentary: Yes: Within Normal Limits - Diagnostic (1) Alcohol dependence with uncomplicated intoxication Current Visit: No Status: Acute (2) Opioid dependence with withdrawal Current Visit: No Status: Acute (3) Cocaine dependence, uncomplicated Current Visit: No Status: Chronic Breathalyzer - Breathalyzer Breathalyzer: 0 Urine Drug Screen - Test Device Lot number: [id number] Expiration date: 08/14/20 - Control Is test valid?: Yes - Results Drug screen NEGATIVE: No Urine drug screen results: THC-Marijuana, ALAN-Cocaine, FEN-Fentanyl, BZO- Benzodiazepines Inpatient Rehab Admission - Rehab Decision to Admit Inpatient rehab admission?: No
[2018-11-01] MEDS ORDERED: ACETAMINOPHEN 325 MG TABLET (FP) PO PRN ×2 (20:17)
[2018-11-01] MEDS ORDERED: cloNIDine HCL 0.1 MG TABLET PO PRN (20:17)
[2018-11-01] MEDS ORDERED: MAGNESIUM HYDROX 2400MG/30ML ORAL SUSPENSION 30 ML CUP PO PRN (20:17)
[2018-11-01] MEDS ORDERED: MENTHOL/PHENOL 1 EACH UD MM PRN (20:17)
[2018-11-01] MEDS ORDERED: METHADONE HCL 10 MG TABLET (FOR DETOX USE ONLY) PO ONE (20:17)
[2018-11-01] MEDS ORDERED: MAG HYDROX/AL HYDROX/SIMETH 30 ML UNIT-DOSE CUP PO PRN (20:17)
[2018-11-01] MEDS ORDERED: BISMUTH SUBSALICYLATE 524 MG/30 ML UD PO PRN (20:17)
[2018-11-01] MEDS ORDERED: MAGNESIUM CITRATE 300 ML BOTTLE PO PRN (20:17)
[2018-11-01] MEDS ORDERED: hydrOXYzine HCL 25 MG TABLET (FP) PO PRN (20:17)
[2018-11-01] MEDS ORDERED: chlordiazePOXIDE HCL 10 MG CAPSULE PO PRN (20:17)
[2018-11-01] MEDS ORDERED: IBUPROFEN 400 MG TABLET (FP) PO PRN (20:17)
[2018-11-01] MEDS: chlordiazePOXIDE HCL 25 MG CAPSULE PO SCH (21:33)
[2018-11-01] MEDS: THIAMINE HCL 100 MG TABLET (FP) PO SCH (21:33)
[2018-11-02] MEDS: chlordiazePOXIDE HCL 25 MG CAPSULE PO SCH ×3 (05:47→22:19)
[2018-11-02] MEDS ORDERED: METHADONE HCL 5 MG TABLET (FOR DETOX USE ONLY) PO ONE (10:00)
[2018-11-02] MEDS: PRENATAL VITAMINS W/ FOLIC ACID TABLET (FP) PO SCH (10:21)
[2018-11-02 12:16] LABS: ALBUMIN 4.4 g/dl (3.4-5.0); BILIRUBIN,TOTAL 0.3 mg/dL (0.2-1); BLOOD UREA NITROGEN 17.4 mg/dL (7-18); CALCIUM 9.2 mg/dL (8.5-10.1); CREATININE 1.2 mg/dL (0.55-1.3); TOT PROT 7.6 g/dl (6.4-8.2)
[2018-11-02 12:19] LABS: HEMATOCRIT 50.8 % (35.4-49); HEMOGLOBIN 17.3 GM/dL (11.7-16.9); MCH 30.3 pg (25.7-33.7); MEAN PLT VOLUME 9.9 fl (7.5-11.1); PLATELET COUNT 248 K/MM3 (134-434); RBC 5.71 M/mm3 (4.00-5.60); WHITE BLOOD COUNT 7.7 K/mm3 (4.0-10.0)
[2018-11-02] MEDS: METHOCARBAMOL 500 MG TABLET PO PRN (12:20)
--- NOTE | 2018-11-02 14:22 | PN ---
[facility] CIWA - CIWA Score Nausea/Vomitin-No Nausea/No Vomiting Muscle Tremors: 4-Moderate,w/Arms Extend Anxiety: 3 Agitation: 2 Paroxysmal Sweats: No Perspiration Orientation: 0-Oriented Tacttile Disturbances: 0-None Auditory Disturbances: 1-Very Mild Visual Disturbances: 2-Mild Sensitivity Headache: 0-None Present CIWA-Ar Total Score: 12 S COWS - Scale Resting Pulse: 0= [place] 80 or Below Sweatin= No chills or Flushing Restless Observation: 1= Difficult to Sit Still Pupil Size: 0= Normal to Room Light Bone or Joint Aches: 0= None Runny Nose/ Eye Tearin= None GI Upset > 30mins: 1= Stomach Cramp Tremor Observation of Outstretched Hands: 2= Slight Tremor Visible Yawning Observation: 1= 1-2x During Session Anxiety or Irritability: 2=Irritable/Anxious Goose Flesh Skin: 3=Piloerection COWS Score: 10 S Progress Note (SOAP) Subjective: Tremors, Stomach Cramping, Interrupted Sleep, Anxious, Poor Appetite. Objective: PATIENT A & O X 3, OBSERVED AMBULATING ON UNIT UNASSISTED. IN NO ACUTE DISTRESS. 11/02/18 14:20 Vital Signs Temperature 97.7 F 11/02/18 13:38 Pulse Rate 80 11/02/18 13:38 Respiratory Rate 20 11/02/18 13:38 Blood Pressure 130/93 11/02/18 13:38 O2 Sat by Pulse Oximetry (%) Laboratory Tests 11/02/18 11/02/18 07:00 07:00 WBC 7.7 RBC 5.71 H Hgb 17.3 H Hct 50.8 H MCV 89.0 MCH 30.3 MCHC 34.0 RDW 13.0 Plt Count 248 D MPV 9.9 Sodium 141 Potassium 4.0 Chloride 106 Carbon Dioxide 28 Anion Gap 8 BUN 17.4 Creatinine 1.2 Est GFR (CKD-EPI)AfAm 86.53 Est GFR (CKD-EPI)NonAf 74.66 Random Glucose 73 L Calcium 9.2 Total Bilirubin 0.3 AST 17 ALT 37 Alkaline Phosphatase 80 Total Protein 7.6 Albumin 4.4 LABS NOTED. RPR RESULT PENDING. 11/02/18 14:21 Assessment: 11/02/18 14:21 WITHDRAWAL SYMPTOMS. Plan: CONTINUE DETOX. ENSURE PO FOR CALORIC SUPPLEMENTATION.
[2018-11-02] MEDS: MELATONIN 5 MG TABLETS PO PRN (22:19)
[2018-11-02] MEDS: THIAMINE HCL 100 MG TABLET (FP) PO SCH (22:19)
[2018-11-03] MEDS: chlordiazePOXIDE 5 MG CAPSULE PO SCH ×3 (05:34→22:10)
[2018-11-03] MEDS ORDERED: METHADONE HCL 10 MG TABLET (FOR DETOX USE ONLY) PO ONE (10:00)
[2018-11-03] MEDS: PRENATAL VITAMINS W/ FOLIC ACID TABLET (FP) PO SCH (10:55)
[2018-11-03] MEDS: METHOCARBAMOL 500 MG TABLET PO PRN (10:55)
--- NOTE | 2018-11-03 18:32 | PN ---
S CIWA - CIWA Score Nausea/Vomitin Muscle Tremors: 3 Anxiety: 4-Mod. Anxious/Guarded Agitation: 2 Paroxysmal Sweats: 2 Orientation: 0-Oriented Tacttile Disturbances: 1-Very Mild Itch/Numbness Auditory Disturbances: 0-None Visual Disturbances: 0-None Headache: 0-None Present CIWA-Ar Total Score: 14 [facility] COWS - Scale Resting Pulse: 1= [place] 81-100 Sweatin= Chills/Flushing Restless Observation: 1= Difficult to Sit Still Pupil Size: 0= Normal to Room Light Bone or Joint Aches: 2= Severe Diffuse Aches Runny Nose/ Eye Tearin= None GI Upset > 30mins: 2= Nausea/Diarrhea Tremor Observation of Outstretched Hands: 2= Slight Tremor Visible Yawning Observation: 1= 1-2x During Session Anxiety or Irritability: 2=Irritable/Anxious Goose Flesh Skin: 0=Smooth Skin COWS Score: 12 [facility]HS Progress Note (SOAP) Subjective: Anxious, Tremors, Stomach Cramping, Nausea, Poor Appetite, Interrupted Sleep. Objective: PATIENT A & O X 3, OBSERVED AMBULATING ON UNIT WITH ASSISTANCE OF A CANE. IN NO ACUTE DISTRESS. 11/03/18 18:32 Vital Signs Temperature 97.2 F L 11/03/18 18:25 Pulse Rate 80 11/03/18 18:25 Respiratory Rate 18 11/03/18 18:25 Blood Pressure 113/70 11/03/18 18:25 O2 Sat by Pulse Oximetry (%) Laboratory Tests 11/02/18 11/02/18 11/02/18 07:00 07:00 07:00 WBC 7.7 RBC 5.71 H Hgb 17.3 H Hct 50.8 H MCV 89.0 MCH 30.3 MCHC 34.0 RDW 13.0 Plt Count 248 D MPV 9.9 Sodium 141 Potassium 4.0 Chloride 106 Carbon Dioxide 28 Anion Gap 8 BUN 17.4 Creatinine 1.2 Est GFR (CKD-EPI)AfAm 86.53 Est GFR (CKD-EPI)NonAf 74.66 Random Glucose 73 L Calcium 9.2 Total Bilirubin 0.3 AST 17 ALT 37 Alkaline Phosphatase 80 Total Protein 7.6 Albumin 4.4 RPR Titer Nonreactive LABS NOTED. Assessment: 11/03/18 18:32 WITHDRAWAL SYMPTOMS. Plan: CONTINUE DETOX.
[2018-11-03] MEDS: THIAMINE HCL 100 MG TABLET (FP) PO SCH (22:10)
[2018-11-03] MEDS: MELATONIN 5 MG TABLETS PO PRN (22:10)
[2018-11-04] MEDS ORDERED: chlordiazePOXIDE HCL 10 MG CAPSULE PO PRN
[2018-11-04] MEDS: chlordiazePOXIDE HCL 10 MG CAPSULE PO SCH ×3 (05:19→21:56)
[2018-11-04] MEDS ORDERED: METHADONE HCL 5 MG TABLET (FOR DETOX USE ONLY) PO ONE (06:00)
[2018-11-04] MEDS: PRENATAL VITAMINS W/ FOLIC ACID TABLET (FP) PO SCH (10:42)
--- NOTE | 2018-11-04 11:16 | PN ---
[facility] CIWA - CIWA Score Nausea/Vomitin-Mild Nausea/No Vomiting Muscle Tremors: 3 Anxiety: 2 Agitation: 2 Paroxysmal Sweats: 1-Minimal Palms Moist Orientation: 1-Uncertain about Date Tacttile Disturbances: 1-Very Mild Itch/Numbness Auditory Disturbances: 0-None Visual Disturbances: 0-None Headache: 0-None Present CIWA-Ar Total Score: 11 S COWS - Scale Resting Pulse: 0= [place] 80 or Below Sweatin= Chills/Flushing Restless Observation: 0= Sits Still Pupil Size: 0= Normal to Room Light Bone or Joint Aches: 1= Mild Discomfort Runny Nose/ Eye Tearin= Nasal Congestion GI Upset > 30mins: 2= Nausea/Diarrhea Tremor Observation of Outstretched Hands: 2= Slight Tremor Visible Yawning Observation: 2= >3x During Session Anxiety or Irritability: 2=Irritable/Anxious Goose Flesh Skin: 0=Smooth Skin COWS Score: 11 [facility] Progress Note (SOAP) Subjective: report doing well with librium and methadone detox regimen ambulating with cane on hallway discuss aftercare with staff patient prefers new focus Objective: 11/04/18 11:18 Vital Signs Temperature 98.5 F 11/04/18 09:11 Pulse Rate 50 L 11/04/18 09:11 Respiratory Rate 18 11/04/18 09:11 Blood Pressure 136/88 11/04/18 09:11 O2 Sat by Pulse Oximetry (%) Laboratory Last Values WBC 7.7 K/mm3 (4.0-10.0) 11/02/18 07:00 RBC 5.71 M/mm3 (4.00-5.60) H 11/02/18 07:00 Hgb 17.3 GM/dL (11.7-16.9) H 11/02/18 07:00 Hct 50.8 % (35.4-49) H 11/02/18 07:00 MCV 89.0 fl (80-96) 11/02/18 07:00 MCH 30.3 pg (25.7-33.7) 11/02/18 07:00 MCHC 34.0 g/dl (32.0-35.9) 11/02/18 07:00 RDW 13.0 % (11.9-15.9) 11/02/18 07:00 Plt Count 248 K/MM3 (134-434) D 11/02/18 07:00 MPV 9.9 fl (7.5-11.1) 11/02/18 07:00 Sodium 141 mmol/L (136-145) 11/02/18 07:00 Potassium 4.0 mmol/L (3.5-5.1) 11/02/18 07:00 Chloride 106 mmol/L (98-107) 11/02/18 07:00 Carbon Dioxide 28 mmol/L (21-32) 11/02/18 07:00 Anion Gap 8 MMOL/L (8-16) 11/02/18 07:00 BUN 17.4 mg/dL (7-18) 11/02/18 07:00 Creatinine 1.2 mg/dL (0.55-1.3) 11/02/18 07:00 Est GFR (CKD-EPI)AfAm 86.53 11/02/18 07:00 Est GFR (CKD-EPI)NonAf 74.66 11/02/18 07:00 Random Glucose 73 mg/dL (74-106) L 11/02/18 07:00 Calcium 9.2 mg/dL (8.5-10.1) 11/02/18 07:00 Total Bilirubin 0.3 mg/dL (0.2-1) 11/02/18 07:00 AST 17 U/L (15-37) 11/02/18 07:00 ALT 37 U/L (13-61) 11/02/18 07:00 Alkaline Phosphatase 80 U/L (45-117) 11/02/18 07:00 Total Protein 7.6 g/dl (6.4-8.2) 11/02/18 07:00 Albumin 4.4 g/dl (3.4-5.0) 11/02/18 07:00 RPR Titer Nonreactive (NONREACTIVE) 11/02/18 07:00 lab noted Assessment: 11/04/18 11:18 alcohol and opiate withdrawal sx Plan: continue alcohol and opiate detox
[2018-11-04] MEDS: METHOCARBAMOL 500 MG TABLET PO PRN (12:47)
[2018-11-04] MEDS: THIAMINE HCL 100 MG TABLET (FP) PO SCH (21:56)
[2018-11-04] MEDS: MELATONIN 5 MG TABLETS PO PRN (21:56)
[2018-11-05] MEDS ORDERED: chlordiazePOXIDE HCL 10 MG CAPSULE PO ONE (05:00)
[2018-11-05 07:32] VITALS: BP 114/74; PULSE 73; TEMP 97.9
[2018-11-05] MEDS: PRENATAL VITAMINS W/ FOLIC ACID TABLET (FP) PO SCH (09:40)
--- NOTE | 2018-11-05 14:18 | DS ---
[facility] Detox Discharge Summary Admission Date: 11/01/18 Discharge Date: 11/05/18 - History Present History: Alcohol Dependence, Opioid Dependence Additional Comments: 43 years old male admitted on 11/01/18 for alcohol and opiate withdrawal sx management alert oriented x 3 denies nausea no diarrhea speech clearly steady gait with cane no complication throughout the detox stay report doing well with the detox regimen patient agrees to consider medication assisted treatment program patient has appointment aftercare with new focus - Physical Exam Results Vital Signs: Vital Signs Temperature 97.9 F 11/05/18 07:30 Pulse Rate 73 11/05/18 07:30 Respiratory Rate 18 11/05/18 07:30 Blood Pressure 114/74 11/05/18 07:30 O2 Sat by Pulse Oximetry (%) Pertinent Admission Physical Exam Findings: alcohol and opiate withdrawal sx Laboratory Last Values WBC 7.7 K/mm3 (4.0-10.0) 11/02/18 07:00 RBC 5.71 M/mm3 (4.00-5.60) H 11/02/18 07:00 Hgb 17.3 GM/dL (11.7-16.9) H 11/02/18 07:00 Hct 50.8 % (35.4-49) H 11/02/18 07:00 MCV 89.0 fl (80-96) 11/02/18 07:00 MCH 30.3 pg (25.7-33.7) 11/02/18 07:00 MCHC 34.0 g/dl (32.0-35.9) 11/02/18 07:00 RDW 13.0 % (11.9-15.9) 11/02/18 07:00 Plt Count 248 K/MM3 (134-434) D 11/02/18 07:00 MPV 9.9 fl (7.5-11.1) 11/02/18 07:00 Sodium 141 mmol/L (136-145) 11/02/18 07:00 Potassium 4.0 mmol/L (3.5-5.1) 11/02/18 07:00 Chloride 106 mmol/L (98-107) 11/02/18 07:00 Carbon Dioxide 28 mmol/L (21-32) 11/02/18 07:00 Anion Gap 8 MMOL/L (8-16) 11/02/18 07:00 BUN 17.4 mg/dL (7-18) 11/02/18 07:00 Creatinine 1.2 mg/dL (0.55-1.3) 11/02/18 07:00 Est GFR (CKD-EPI)AfAm 86.53 11/02/18 07:00 Est GFR (CKD-EPI)NonAf 74.66 11/02/18 07:00 Random Glucose 73 mg/dL (74-106) L 11/02/18 07:00 Calcium 9.2 mg/dL (8.5-10.1) 11/02/18 07:00 Total Bilirubin 0.3 mg/dL (0.2-1) 11/02/18 07:00 AST 17 U/L (15-37) 11/02/18 07:00 ALT 37 U/L (13-61) 11/02/18 07:00 Alkaline Phosphatase 80 U/L (45-117) 11/02/18 07:00 Total Protein 7.6 g/dl (6.4-8.2) 11/02/18 07:00 Albumin 4.4 g/dl (3.4-5.0) 11/02/18 07:00 RPR Titer Nonreactive (NONREACTIVE) 11/02/18 07:00 lab noted - Treatment Hospital Course: Detox Protocol Followed, Detoxed Safely, Responded well, Discharged Condition Good, Rehab Referral Accepted Patient has Accepted a Rehab Referral to: new focus - Medication Discharge Medications: Ambulatory Orders NK [No Known Home Medication] 10/25/17 - Diagnosis (1) Alcohol dependence with uncomplicated withdrawal Status: Acute (2) Nicotine dependence Status: Acute Qualifiers: Nicotine product type: cigarettes Substance use status: in withdrawal Qualified Code(s): F17.213 - Nicotine dependence, cigarettes, with withdrawal - AMA Did Patient Leave Against Medical Advice: No
== END 2018-11-05 09:41 | disposition home or self-care (01) | DRG 773 ==
LOC: YASAS 15:42 → Y3N 20:26
PROVIDERS: ADMIT Surgery; ATTEND Surgery
PROC: HZ2ZZZZ Detoxification Services for Substance Abuse Treatment (ICD-10-PCS; principal; 2018-11-01)
DX: F11.23 Opioid dependence with withdrawal (principal); F10.230 Alcohol dependence with withdrawal, uncomplicated; F14.20 Cocaine dependence, uncomplicated; F17.213 Nicotine dependence, cigarettes, with withdrawal; I10 Essential (primary) hypertension; Z91.010 Allergy to peanuts; Z91.14 Patient's other noncompliance with medication regimen
CPT/HCPCS: 36415; 80053; 85027; 86593

== ENCOUNTER 2019-04-04 14:09 | Inpatient (IN) | payer OTHER ==
[2019-04-04 14:51] VITALS: BMI 36.6
--- NOTE | 2019-04-04 16:57 | HP ---
COWS - Scale Resting Pulse: 2= [place] 101-120 Sweatin= Beads of Sweat on Face Restless Observation: 3= Extraneous Movement Pupil Size: 0= Normal to Room Light Bone or Joint Aches: 2= Severe Diffuse Aches Runny Nose/ Eye Tearin= Runny Nose/Eyes GI Upset > 30mins: 0= None Tremor Observation: 2= Slight Tremor Visible Yawning Observation: 1= 1-2x During Session Anxiety or Irritability: 2=Irritable/Anxious Goose Flesh Skin: 0=Smooth Skin COWS Score: 17 CIWA Score Nausea/Vomitin-No Nausea/No Vomiting Muscle Tremors: 3 Anxiety: 3 Agitation: 2 Paroxysmal Sweats: 3 Orientation: 0-Oriented Tacttile Disturbances: 1-Very Mild Itch/Numbness Auditory Disturbances: 0-None Visual Disturbances: 0-None Headache: 2-Mild CIWA-Ar Total Score: 14 - Admission Criteria OASAS Guidelines: Admission for Medically Managed Detox: Requires at least one of the followin. CIWA greater than 12 2. Seizures within the past 24 hours 3. Delirium tremens within the past 24 hours 4. Hallucinations within the past 24 hours 5. Acute intervention needed for co occurring medical disorder 6. Acute intervention needed for co occurring psychiatric disorder 7. Severe withdrawal that cannot be handled at a lower level of care (continued vomiting, continued diarrhea, abnormal vital signs) requiring intravenous medication and/or fluids 8. Admitting History and Physical - Primary Care Physician PCP: None - Admission Chief Complaint: "I'm here for alcohol and heroin detox" History of Present Illness: A 44year old male with history of HTN and depression who came here for alcohol and heroin detox. Pt states that he has never been to any outpatient CD program or any rehab before but wants to go to rehab after detox. Pt's last detox here was on 11/01/18-11/05/18. Pt reports that he has history of depression but does not take any medication for it. Pt declines to see the psychiatrist for depression medication management. Denies any depression at the moment. History Source: Patient Limitations to Obtaining History: No Limitations - Past Medical History Cardiovascular: Yes: HTN - Past Surgical History Past Surgical History: Yes: Cholecystectomy - Smoking History Smoking history: Current every day smoker Have you smoked in the past 12 months: Yes Aproximately how many cigarettes per day: 10 - Alcohol/Substance Use Hx Alcohol Use: Yes History of Substance Use: reports: Cocaine, Heroin - Social History Usual Living Arrangement: Yes: Alone Do you think of yourself as: Straight/Heterosexual ADL: Independent History of Recent Travel: No Admission ROS [facility] Allergies/Adverse Reactions: Allergies Allergy/AdvReac Type Severity Reaction Status Date / Time peanut Allergy Severe Hives Verified 04/04/19 14:42 No Known Drug Allergies Allergy Verified 04/04/19 14:42 Exam Limitations: No Limitations - Ebola screening Have you traveled outside of the country in the last 21 days: No (N) Have you had contact with anyone from an Ebola affected area: No Have you been sick,other than usual withdrawal symptoms: No Do you have a fever: No - Review of Systems Constitutional: Chills, Night Sweats EENT: reports: No Symptoms Reported Respiratory: reports: Other (stuffy nose) Cardiac: reports: No Symptoms Reported GI: reports: No Symptoms Reported : reports: No Symptoms Reported Musculoskeletal: reports: Muscle Pain Integumentary: reports: Other (small scratch to left LE) Neuro: reports: Headache Endocrine: reports: No Symptoms Reported Hematology: reports: No Symptoms Reported Psychiatric: reports: No Sypmtoms Reported Other Systems: Reviewed and Negative Patient History - Patient Medical History Hx Anemia: No Hx Asthma: No Hx Chronic Obstructive Pulmonary Disease (COPD): No Hx Cancer: No Hx Cardiac Disorders: No Hx Congestive Heart Failure: No Hx Hypertension: Yes (non compliance) Hx Hypercholesterolemia: No Hx Pacemaker: No HX Cerebrovascular Accident: No Hx Seizures: No Hx Dementia: No Hx Diabetes: No Hx Gastrointestinal Disorders: No Hx Liver Disease: No Hx Genitourinary Disorders: No Hx Sexually Transmitted Disorders: No Hx Renal Disease (ESRD): No Hx Thyroid Disease: No Hx Human Immunodeficiency Virus (HIV): No (NEGATIVE HX last 06/03) Hx Hepatitis C: No (negative) Hx Depression: No Hx Suicide Attempt: No (denies) Hx Bipolar Disorder: No Hx Schizophrenia: No - Patient Surgical History Past Surgical History: Yes Hx Neurologic Surgery: No Hx Cataract Extraction: No Hx Cardiac Surgery: No Hx Lung Surgery: No Hx Breast Surgery: No Hx Breast Biopsy: No Hx Abdominal Surgery: No Hx Appendectomy: No Hx Cholecystectomy: Yes (2012 [facility] in [place]) Hx Genitourinary Surgery: No Hx Section: No Hx Orthopedic Surgery: No Anesthesia Reaction: No - PPD History Previous Implant?: Yes Documented Results: Negative w/o proof Implanted On Prior [facility] Admission?: Yes Date: 09/24/18 Results: 0mm PPD to be Administered?: No - Smoking Cessation Smoking history: Current every day smoker Have you smoked in the past 12 months: Yes Aproximately how many cigarettes per day: 10 Cigars Per Day: 0 Hx Chewing Tobacco Use: No Initiated information on smoking cessation: Yes 'Breaking Loose' booklet given: 04/04/19 - Substance & Tx. History Hx Alcohol Use: Yes Hx Substance Use: Yes Substance Use Type: Alcohol, Heroin Hx Substance Use Treatment: No - Substances abused Alcohol Substance route: Oral Frequency: Daily Amount used: beer- 1 six pack Age of first use: 18 Date of last use: 04/03/19 Cocaine Substance route: Inhalation Frequency: 3-6 times per week Amount used: 1 GRAM Age of first use: 27 Date of last use: 04/02/19 Heroin Substance route: Inhalation Frequency: Daily Amount used: 2bags daily Age of first use: 38 Date of last use: 04/03/19 Admission Physical Exam S - Vital Signs Vital Signs: Vital Signs - 24 hr 04/04/19 14:41 Temperature 98.1 F Pulse Rate 106 H Respiratory 20 Rate Blood Pressure 128/83 - Physical General Appearance: Yes: No Apparent Distress, Appropriately Dressed, Tremorous , Irritable, Sweating, Anxious HEENTM: Yes: Within Normal Limits, EOMI, Hearing grossly Normal, Normal ENT Inspection, Normocephalic, Normal Voice, SINDHU, Pharynx Normal, Tm's normal Respiratory: Yes: Within Normal Limits, Chest Non-Tender, Lungs Clear, Normal Breath Sounds, No Respiratory Distress, No Accessory Muscle Use Neck: Yes: Within Normal Limits, No masses,lesions,Nodules, Supple, Trachea in good position Breast: Yes: Within Normal Limits Cardiology: Yes: Within Normal Limits, Regular Rhythm, Regular Rate, S1, S2 Abdominal: Yes: Within Normal Limits, Normal Bowel Sounds, Non Tender, Soft Genitourinary: Yes: Within Normal Limits Back: Yes: Within Normal Limits, Normal Inspection Musculoskeletal: Yes: Within Normal Limits, full range of Motion, Gait Steady, Muscle Pain Extremities: Yes: Within Normal Limits, Normal Capillary Refill, Normal Inspection, Normal Range of Motion, Non-Tender Neurological: Yes: Within Normal Limits, coverage specialist rn II-XII NML intact, Fully Oriented, Alert, Motor Strength 5/5, Normal Mood/Affect, Normal Response Integumentary: Yes: Within Normal Limits, Normal Color, Dry, Warm Lymphatic: Yes: Within Normal Limits - Diagnostic (1) Hypertension Current Visit: Yes Status: Chronic Qualifiers: Hypertension type: essential hypertension Qualified Code(s): I10 - Essential (primary) hypertension (2) Alcohol dependence with uncomplicated intoxication Current Visit: No Status: Acute (3) Nicotine dependence Current Visit: No Status: Chronic Qualifiers: Nicotine product type: cigarettes Substance use status: in withdrawal Qualified Code(s): F17.213 - Nicotine dependence, cigarettes, with withdrawal (4) Opioid abuse Current Visit: No Status: Acute (5) Opioid dependence with withdrawal Current Visit: No Status: Acute (6) Cannabis dependence, uncomplicated Current Visit: No Status: Chronic (7) History of laparoscopic cholecystectomy Current Visit: No Status: Chronic Cleared for Admission [facility] - Detox or Rehab [facility] Level of Care: Medically Managed (Ativan/methadone protocol) Detox Regimen/Protocol: Ativan, Methadone Claeared for Rehab Admission: No Breathalyzer - Breathalyzer Breathalyzer: 0 Vital Signs - Vital Signs Vital signs refused: No - Bowel Function Bowel Movement: Yes Urine Drug Screen - Test Device Lot number: [id number] Expiration date: 11/14/20 - Control Is test valid?: Yes - Results Drug screen NEGATIVE: No Urine drug screen results: THC-Marijuana, ALAN-Cocaine, MOP-Opiates Inpatient Rehab Admission - Rehab Decision to Admit Inpatient rehab admission?: No
[2019-04-04] MEDS ORDERED: MAGNESIUM CITRATE 300 ML BOTTLE PO PRN (17:11)
[2019-04-04] MEDS ORDERED: METHOCARBAMOL 500 MG TABLET PO PRN (17:11)
[2019-04-04] MEDS ORDERED: MAGNESIUM HYDROX 2400MG/30ML ORAL SUSPENSION 30 ML CUP PO PRN (17:11)
[2019-04-04] MEDS ORDERED: ACETAMINOPHEN 325 MG TABLET (FP) PO PRN (17:11)
[2019-04-04] MEDS ORDERED: MAG HYDROX/AL HYDROX/SIMETH 30 ML UNIT-DOSE CUP PO PRN (17:11)
[2019-04-04] MEDS ORDERED: MENTHOL/PHENOL 1 EACH UD MM PRN (17:11)
[2019-04-04] MEDS ORDERED: IBUPROFEN 400 MG TABLET (FP) PO PRN (17:11)
[2019-04-04] MEDS ORDERED: BISMUTH SUBSALICYLATE 524 MG/30 ML UD PO PRN (17:11)
[2019-04-04] MEDS ORDERED: hydrOXYzine PAMOATE 25 MG CAPSULE (FP) PO PRN (17:11)
[2019-04-04] MEDS ORDERED: cloNIDine HCL 0.1 MG TABLET PO PRN (17:21)
[2019-04-04] MEDS ORDERED: METHADONE HCL 10 MG TABLET (FOR DETOX USE ONLY) PO ONE (17:21)
[2019-04-04] MEDS: LORazepam 2 MG TABLET PO SCH ×2 (18:39→22:36)
[2019-04-04] MEDS ORDERED: MELATONIN 5 MG TABLETS PO PRN (22:00)
[2019-04-04] MEDS: THIAMINE HCL 100 MG TABLET (FP) PO SCH (22:36)
[2019-04-05] MEDS: LORazepam 2 MG TABLET PO SCH ×4 (05:44→22:52)
[2019-04-05] MEDS ORDERED: METHADONE HCL 5 MG TABLET (FOR DETOX USE ONLY) ONE (09:37)
[2019-04-05] MEDS ORDERED: METHADONE HCL 10 MG TABLET (FOR DETOX USE ONLY) ONE (09:37)
[2019-04-05] MEDS ORDERED: METHADONE (DETOX) 20 MG, METHADONE (DETOX) 5 MG PO ONE (10:00)
[2019-04-05] MEDS: LISINOPRIL 5 MG TABLET (FP) PO SCH (10:08)
[2019-04-05] MEDS: PRENATAL VITAMINS W/ FOLIC ACID TABLET (FP) PO SCH (10:08)
[2019-04-05 10:37] LABS: HEMATOCRIT 43.6 % (35.4-49); HEMOGLOBIN 14.5 GM/dL (11.7-16.9); MCH 28.7 pg (25.7-33.7); MCHC 33.4 g/dl (32.0-35.9); MEAN CELL VOLUME 86.1 fl (80-96); MEAN PLT VOLUME 9.3 fl (7.5-11.1); PLATELET COUNT 231 K/MM3 (134-434); RBC 5.06 M/mm3 (4.00-5.60); RDW 13.3 % (11.9-15.9); WHITE BLOOD COUNT 5.8 K/mm3 (4.0-10.0)
[2019-04-05 10:54] LABS: ALBUMIN 3.7 g/dl (3.4-5.0); BILIRUBIN,TOTAL 0.3 mg/dL (0.2-1); BLOOD UREA NITROGEN 17.2 mg/dL (7-18); CALCIUM 8.9 mg/dL (8.5-10.1); POTASSIUM 3.6 mmol/L (3.5-5.1); TOT PROT 6.6 g/dl (6.4-8.2)
--- NOTE | 2019-04-05 11:24 | PN ---
[facility] CIWA - CIWA Score Nausea/Vomitin-Mild Nausea/No Vomiting Muscle Tremors: 2 Anxiety: 2 Agitation: 2 Paroxysmal Sweats: 2 Orientation: 1-Uncertain about Date Tacttile Disturbances: 0-None Auditory Disturbances: 0-None Visual Disturbances: 0-None Headache: 1-Very Mild CIWA-Ar Total Score: 11 BHS COWS - Scale Resting Pulse: 2= [place] 101-120 Sweatin=Flushed/Facial Moisture Restless Observation: 3= Extraneous Movement Pupil Size: 1= Pupils >than Normal Bone or Joint Aches: 1= Mild Discomfort Runny Nose/ Eye Tearin= Nasal Congestion GI Upset > 30mins: 1= Stomach Cramp Tremor Observation of Outstretched Hands: 1= Tremor [place], Not Seen Yawning Observation: 0= None Anxiety or Irritability: 0= None Goose Flesh Skin: 3=Piloerection COWS Score: 15 S Progress Note (SOAP) Subjective: Pt states he is not feeling good. CAme in yesterday for alcohol and heroin detox. O: Vital Signs - 24 hr 04/04/19 04/04/19 04/04/19 14:41 18:00 23:43 Temperature 98.1 F 98.1 F 97.1 F L Pulse Rate 106 H 108 H 101 H Respiratory 20 18 18 Rate Blood Pressure 128/83 135/95 114/74 04/05/19 04/05/19 04/05/19 03:33 04:42 06:39 Temperature 97.4 F L Pulse Rate 96 H Respiratory 18 18 18 Rate Blood Pressure 119/79 04/05/19 09:05 Temperature 97 F L Pulse Rate 101 H Respiratory 20 Rate Blood Pressure 112/69 Laboratory Tests 04/05/19 04/05/19 08:00 08:00 WBC 5.8 RBC 5.06 Hgb 14.5 Hct 43.6 MCV 86.1 MCH 28.7 MCHC 33.4 RDW 13.3 Plt Count 231 MPV 9.3 Sodium 141 Potassium 3.6 Chloride 104 Carbon Dioxide 27 Anion Gap 9 BUN 17.2 Creatinine 1.0 Est GFR (CKD-EPI)AfAm 107.12 Est GFR (CKD-EPI)NonAf 92.42 Random Glucose 93 Calcium 8.9 Total Bilirubin 0.3 AST 19 ALT 51 Alkaline Phosphatase 59 Total Protein 6.6 Albumin 3.7 a/p: alcohol/heroin use disorder- continue detox protocols, pt has prn meds- clonidine/vistaril and ativan
[2019-04-05] MEDS: ONDANSETRON *ODT* 4 MG TABLET SL PRN (16:43)
[2019-04-05] MEDS: THIAMINE HCL 100 MG TABLET (FP) PO SCH (22:52)
[2019-04-06] MEDS: LORazepam 1 MG TABLET PO SCH ×4 (05:33→22:07)
[2019-04-06] MEDS ORDERED: METHADONE HCL 10 MG TABLET (FOR DETOX USE ONLY) PO ONE (10:00)
[2019-04-06] MEDS: LISINOPRIL 5 MG TABLET (FP) PO SCH (10:27)
[2019-04-06] MEDS: PRENATAL VITAMINS W/ FOLIC ACID TABLET (FP) PO SCH (10:27)
--- NOTE | 2019-04-06 11:42 | PN ---
S CIWA - CIWA Score Nausea/Vomitin-No Nausea/No Vomiting Muscle Tremors: None Anxiety: 3 Agitation: 0-Normal Activity Paroxysmal Sweats: 3 Orientation: 0-Oriented Tacttile Disturbances: 0-None Auditory Disturbances: 0-None Visual Disturbances: 0-None Headache: 2-Mild CIWA-Ar Total Score: 8 BHS COWS - Scale Resting Pulse: 1= [place] 81-100 Sweatin= Chills/Flushing Restless Observation: 1= Difficult to Sit Still Pupil Size: 0= Normal to Room Light Bone or Joint Aches: 2= Severe Diffuse Aches Runny Nose/ Eye Tearin= None GI Upset > 30mins: 1= Stomach Cramp Tremor Observation of Outstretched Hands: 0= None Yawning Observation: 1= 1-2x During Session Anxiety or Irritability: 2=Irritable/Anxious Goose Flesh Skin: 0=Smooth Skin COWS Score: 9 S Progress Note (SOAP) Subjective: c/o anxiety, irritability, stomach cramp, headache, sweats, and muscle aches. Objective: 04/06/19 11:41 Vital Signs 04/06/19 04/06/19 06:35 09:24 Temperature 97.5 F L 96.2 F L Pulse Rate 77 92 H Respiratory 18 18 Rate Blood Pressure 99/67 128/88 Laboratory Last Values WBC 5.8 K/mm3 (4.0-10.0) 04/05/19 08:00 RBC 5.06 M/mm3 (4.00-5.60) 04/05/19 08:00 Hgb 14.5 GM/dL (11.7-16.9) 04/05/19 08:00 Hct 43.6 % (35.4-49) 04/05/19 08:00 MCV 86.1 fl (80-96) 04/05/19 08:00 MCH 28.7 pg (25.7-33.7) 04/05/19 08:00 MCHC 33.4 g/dl (32.0-35.9) 04/05/19 08:00 RDW 13.3 % (11.9-15.9) 04/05/19 08:00 Plt Count 231 K/MM3 (134-434) 04/05/19 08:00 MPV 9.3 fl (7.5-11.1) 04/05/19 08:00 Sodium 141 mmol/L (136-145) 04/05/19 08:00 Potassium 3.6 mmol/L (3.5-5.1) 04/05/19 08:00 Chloride 104 mmol/L (98-107) 04/05/19 08:00 Carbon Dioxide 27 mmol/L (21-32) 04/05/19 08:00 Anion Gap 9 MMOL/L (8-16) 04/05/19 08:00 BUN 17.2 mg/dL (7-18) 04/05/19 08:00 Creatinine 1.0 mg/dL (0.55-1.3) 04/05/19 08:00 Est GFR (CKD-EPI)AfAm 107.12 04/05/19 08:00 Est GFR (CKD-EPI)NonAf 92.42 04/05/19 08:00 Random Glucose 93 mg/dL (74-106) 04/05/19 08:00 Calcium 8.9 mg/dL (8.5-10.1) 04/05/19 08:00 Total Bilirubin 0.3 mg/dL (0.2-1) 04/05/19 08:00 AST 19 U/L (15-37) 04/05/19 08:00 ALT 51 U/L (13-61) 04/05/19 08:00 Alkaline Phosphatase 59 U/L (45-117) 04/05/19 08:00 Total Protein 6.6 g/dl (6.4-8.2) 04/05/19 08:00 Albumin 3.7 g/dl (3.4-5.0) 04/05/19 08:00 RPR Titer Nonreactive (NONREACTIVE) 04/05/19 08:00 Labs noted Assessment: 04/06/19 11:42 AOX3, in no respiratory distress. Full ROM, ambulating in the unit. Withdrawal symptoms. Plan: continue detox.
[2019-04-06] MEDS: ONDANSETRON *ODT* 4 MG TABLET SL PRN (13:05)
--- NOTE | 2019-04-06 14:38 | EKG ---
Test Reason : Blood Pressure : / mmHG Vent. Rate : 094 BPM Atrial Rate : 094 BPM P-R Int : 132 ms QRS Dur : 100 ms QT Int : 330 ms P-R-T Axes : 050 055 082 degrees QTc Int : 412 ms SINUS RHYTHM WITH PREMATURE ATRIAL COMPLEXES OTHERWISE NORMAL ECG WHEN COMPARED WITH ECG OF 25-OCT-2017 17:57, T WAVE INVERSION NOW EVIDENT IN LATERAL LEADS Confirmed by SORAYA DOMINGUEZ MD ([id number]) on 04/06/2019 2:38:15 PM Referred By: Confirmed By:SORAYA DOMINGUEZ MD
[2019-04-06] MEDS: hydrOXYzine PAMOATE 25 MG CAPSULE (FP) PO PRN (20:22)
[2019-04-06] MEDS: THIAMINE HCL 100 MG TABLET (FP) PO SCH (23:03)
[2019-04-07] MEDS ORDERED: LORazepam 0.5 MG TABLET PO PRN
[2019-04-07] MEDS: LORazepam 0.5 MG TABLET PO SCH ×4 (05:47→22:46)
[2019-04-07] MEDS ORDERED: METHADONE HCL 5 MG TABLET (FOR DETOX USE ONLY) ONE (09:49)
[2019-04-07] MEDS ORDERED: METHADONE HCL 10 MG TABLET (FOR DETOX USE ONLY) ONE (09:49)
[2019-04-07] MEDS ORDERED: METHADONE (DETOX) 10 MG, METHADONE (DETOX) 5 MG PO ONE (10:00)
[2019-04-07] MEDS: PRENATAL VITAMINS W/ FOLIC ACID TABLET (FP) PO SCH (10:16)
[2019-04-07] MEDS: LISINOPRIL 5 MG TABLET (FP) PO SCH (10:16)
--- NOTE | 2019-04-07 11:32 | PN ---
S CIWA - CIWA Score Nausea/Vomitin-No Nausea/No Vomiting Muscle Tremors: 2 Anxiety: 2 Agitation: 0-Normal Activity Paroxysmal Sweats: 1-Minimal Palms Moist Orientation: 0-Oriented Tacttile Disturbances: 0-None Auditory Disturbances: 0-None Visual Disturbances: 0-None Headache: 0-None Present CIWA-Ar Total Score: 5 S COWS - Scale Resting Pulse: 1= [place] 81-100 Sweatin= Chills/Flushing Restless Observation: 0= Sits Still Pupil Size: 0= Normal to Room Light Bone or Joint Aches: 1= Mild Discomfort Runny Nose/ Eye Tearin= None GI Upset > 30mins: 0= None Tremor Observation of Outstretched Hands: 1= Tremor [place], Not Seen Yawning Observation: 0= None Anxiety or Irritability: 1=Feels Anxious/Irritable Goose Flesh Skin: 0=Smooth Skin COWS Score: 5 S Progress Note (SOAP) Subjective: 44 years old male admitted on 04/04/19 for alcohol and opiate withdrawal sx management treating with ativan and methadone detox regimen feeling better today ate breakfast less tremor mild body ache Objective: 04/07/19 11:32 Vital Signs Temperature 98.6 F 04/07/19 09:24 Pulse Rate 90 04/07/19 09:24 Respiratory Rate 18 04/07/19 09:24 Blood Pressure 117/83 04/07/19 09:24 O2 Sat by Pulse Oximetry (%) Laboratory Last Values WBC 5.8 K/mm3 (4.0-10.0) 04/05/19 08:00 RBC 5.06 M/mm3 (4.00-5.60) 04/05/19 08:00 Hgb 14.5 GM/dL (11.7-16.9) 04/05/19 08:00 Hct 43.6 % (35.4-49) 04/05/19 08:00 MCV 86.1 fl (80-96) 04/05/19 08:00 MCH 28.7 pg (25.7-33.7) 04/05/19 08:00 MCHC 33.4 g/dl (32.0-35.9) 04/05/19 08:00 RDW 13.3 % (11.9-15.9) 04/05/19 08:00 Plt Count 231 K/MM3 (134-434) 04/05/19 08:00 MPV 9.3 fl (7.5-11.1) 04/05/19 08:00 Sodium 141 mmol/L (136-145) 04/05/19 08:00 Potassium 3.6 mmol/L (3.5-5.1) 04/05/19 08:00 Chloride 104 mmol/L (98-107) 04/05/19 08:00 Carbon Dioxide 27 mmol/L (21-32) 04/05/19 08:00 Anion Gap 9 MMOL/L (8-16) 04/05/19 08:00 BUN 17.2 mg/dL (7-18) 04/05/19 08:00 Creatinine 1.0 mg/dL (0.55-1.3) 04/05/19 08:00 Est GFR (CKD-EPI)AfAm 107.12 04/05/19 08:00 Est GFR (CKD-EPI)NonAf 92.42 04/05/19 08:00 Random Glucose 93 mg/dL (74-106) 04/05/19 08:00 Calcium 8.9 mg/dL (8.5-10.1) 04/05/19 08:00 Total Bilirubin 0.3 mg/dL (0.2-1) 04/05/19 08:00 AST 19 U/L (15-37) 04/05/19 08:00 ALT 51 U/L (13-61) 04/05/19 08:00 Alkaline Phosphatase 59 U/L (45-117) 04/05/19 08:00 Total Protein 6.6 g/dl (6.4-8.2) 04/05/19 08:00 Albumin 3.7 g/dl (3.4-5.0) 04/05/19 08:00 RPR Titer Nonreactive (NONREACTIVE) 04/05/19 08:00 lab noted Assessment: 04/07/19 11:32 alcohol and opiate withdrawal Plan: ativan and methadone regimens
[2019-04-07] MEDS: hydrOXYzine PAMOATE 25 MG CAPSULE (FP) PO PRN (14:49)
[2019-04-07] MEDS: THIAMINE HCL 100 MG TABLET (FP) PO SCH (22:46)
[2019-04-08] MEDS: hydrOXYzine PAMOATE 25 MG CAPSULE (FP) PO PRN (02:24)
[2019-04-08] MEDS ORDERED: METHADONE HCL 5 MG TABLET PO ONE (05:00)
[2019-04-08] MEDS ORDERED: METHADONE HCL 10 MG TABLET (FOR DETOX USE ONLY) PO ONE ×2 (05:00→10:00)
[2019-04-08] MEDS ORDERED: LORazepam 0.5 MG TABLET PO ONE (05:00)
[2019-04-08 06:56] VITALS: BP 113/75; PULSE 55; TEMP 97.4
--- NOTE | 2019-04-08 14:33 | DS ---
[facility] Detox Discharge Summary Admission Date: 04/04/19 Discharge Date: 04/08/19 - History Present History: Alcohol Dependence, Opioid Dependence Additional Comments: 44 years old male admitted on 04/04/19 for alcohol and opiate withdrawal sx management treated with ativan and methadone detox regimen patient tolerated well alert oriented x 3 respiratory clear lung bilaterally on auscultation skin warm and dry abdomen soft obese no rebound tenderness Pertinent Past History: patient requests to be discharged one day early as estimated discharge day case discussed with the nurse routine discharge is appropriated - Physical Exam Results Vital Signs: Vital Signs Temperature 97.4 F L 04/08/19 06:55 Pulse Rate 55 L 04/08/19 06:55 Respiratory Rate 18 04/08/19 06:55 Blood Pressure 113/75 04/08/19 06:55 O2 Sat by Pulse Oximetry (%) Pertinent Admission Physical Exam Findings: alcohol and opiate withdrawal Laboratory Last Values WBC 5.8 K/mm3 (4.0-10.0) 04/05/19 08:00 RBC 5.06 M/mm3 (4.00-5.60) 04/05/19 08:00 Hgb 14.5 GM/dL (11.7-16.9) 04/05/19 08:00 Hct 43.6 % (35.4-49) 04/05/19 08:00 MCV 86.1 fl (80-96) 04/05/19 08:00 MCH 28.7 pg (25.7-33.7) 04/05/19 08:00 MCHC 33.4 g/dl (32.0-35.9) 04/05/19 08:00 RDW 13.3 % (11.9-15.9) 04/05/19 08:00 Plt Count 231 K/MM3 (134-434) 04/05/19 08:00 MPV 9.3 fl (7.5-11.1) 04/05/19 08:00 Sodium 141 mmol/L (136-145) 04/05/19 08:00 Potassium 3.6 mmol/L (3.5-5.1) 04/05/19 08:00 Chloride 104 mmol/L (98-107) 04/05/19 08:00 Carbon Dioxide 27 mmol/L (21-32) 04/05/19 08:00 Anion Gap 9 MMOL/L (8-16) 04/05/19 08:00 BUN 17.2 mg/dL (7-18) 04/05/19 08:00 Creatinine 1.0 mg/dL (0.55-1.3) 04/05/19 08:00 Est GFR (CKD-EPI)AfAm 107.12 04/05/19 08:00 Est GFR (CKD-EPI)NonAf 92.42 04/05/19 08:00 Random Glucose 93 mg/dL (74-106) 04/05/19 08:00 Calcium 8.9 mg/dL (8.5-10.1) 04/05/19 08:00 Total Bilirubin 0.3 mg/dL (0.2-1) 04/05/19 08:00 AST 19 U/L (15-37) 04/05/19 08:00 ALT 51 U/L (13-61) 04/05/19 08:00 Alkaline Phosphatase 59 U/L (45-117) 04/05/19 08:00 Total Protein 6.6 g/dl (6.4-8.2) 04/05/19 08:00 Albumin 3.7 g/dl (3.4-5.0) 04/05/19 08:00 RPR Titer Nonreactive (NONREACTIVE) 04/05/19 08:00 lab noted Vital Signs Temperature 97.4 F L 04/08/19 06:55 Pulse Rate 55 L 04/08/19 06:55 Respiratory Rate 18 04/08/19 06:55 Blood Pressure 113/75 04/08/19 06:55 O2 Sat by Pulse Oximetry (%) - Treatment Hospital Course: Detox Protocol Followed, Detoxed Safely, Responded well, Discharged Condition Good, Rehab Referral Accepted Patient has Accepted a Rehab Referral to: [facility] methadone [facility] - Medication Discharge Medications: Ambulatory Orders Naloxone HCl [Narcan] 4 mg NS ASDIR PRN #1 spray 04/07/19 - Diagnosis (1) Alcohol dependence with uncomplicated withdrawal Status: Acute (2) Opioid dependence with withdrawal Status: Acute (3) Hypertension Status: Chronic Qualifiers: Hypertension type: essential hypertension Qualified Code(s): I10 - Essential (primary) hypertension (4) Nicotine dependence Status: Acute Qualifiers: Nicotine product type: cigarettes Substance use status: in withdrawal Qualified Code(s): F17.213 - Nicotine dependence, cigarettes, with withdrawal - AMA Did Patient Leave Against Medical Advice: No CIWA Score - CIWA Score Nausea/Vomitin-No Nausea/No Vomiting Muscle Tremors: 1-None Visible, but [place] Anxiety: 1-Mildly Anxious Agitation: 0-Normal Activity Paroxysmal Sweats: No Perspiration Orientation: 0-Oriented Tacttile Disturbances: 0-None Auditory Disturbances: 0-None Visual Disturbances: 0-None Headache: 0-None Present CIWA-Ar Total Score: 2 COWS (PN) - Opiate Withdrawal Resting Pulse: 0= [place] 80 or Below Sweatin= Chills/Flushing Restless Observation: 0= Sits Still Pupil Size: 0= Normal to Room Light Bone or Joint Aches: 1= Mild Discomfort Runny Nose/ Eye Tearin= None GI Upset > 30mins: 0= None Tremor Observation of Outstretched Hands: 0= None Yawning Observation: 0= None Anxiety or Irritability: 0= None Goose Flesh Skin: 0=Smooth Skin COWS Score: 2
[2019-04-09] MEDS ORDERED: METHADONE HCL 5 MG TABLET (FOR DETOX USE ONLY) PO ONE (06:00)
== END 2019-04-08 08:57 | disposition home or self-care (01) | DRG 773 ==
LOC: YASAS 14:09 → Y3N 17:49
PROVIDERS: ADMIT Allergy & Immunology; ATTEND Allergy & Immunology
PROC: HZ2ZZZZ Detoxification Services for Substance Abuse Treatment (ICD-10-PCS; principal; 2019-04-04)
DX: F11.23 Opioid dependence with withdrawal (principal); F10.230 Alcohol dependence with withdrawal, uncomplicated; F12.20 Cannabis dependence, uncomplicated; F17.213 Nicotine dependence, cigarettes, with withdrawal; I10 Essential (primary) hypertension; Z91.010 Allergy to peanuts; Z91.14 Patient's other noncompliance with medication regimen
CPT/HCPCS: 36415; 80053; 85027; 86593; 93005; 93010; Q0162

== ENCOUNTER 2019-04-30 11:58 | Inpatient (IN) | payer OTHER ==
[2019-04-30 12:23] VITALS: BMI 37.4
--- NOTE | 2019-04-30 15:19 | HP ---
COWS - Scale Resting Pulse: 1= [place] 81-100 Sweatin= Chills/Flushing Restless Observation: 0= Sits Still Pupil Size: 0= Normal to Room Light Bone or Joint Aches: 1= Mild Discomfort Runny Nose/ Eye Tearin= None GI Upset > 30mins: 2= Nausea/Diarrhea Tremor Observation: 0= None Yawning Observation: 0= None Anxiety or Irritability: 1=Feels Anxious/Irritable Goose Flesh Skin: 0=Smooth Skin COWS Score: 6 CIWA Score Nausea/Vomitin-Mild Nausea/No Vomiting Muscle Tremors: 1-None Visible, but [place] Anxiety: 1-Mildly Anxious Agitation: 0-Normal Activity Paroxysmal Sweats: No Perspiration Orientation: 1-Uncertain about Date Tacttile Disturbances: 0-None Auditory Disturbances: 0-None Visual Disturbances: 0-None Headache: 3-Moderate CIWA-Ar Total Score: 7 - Admission Criteria OASAS Guidelines: Admission for Medically Managed Detox: Requires at least one of the followin. CIWA greater than 12 2. Seizures within the past 24 hours 3. Delirium tremens within the past 24 hours 4. Hallucinations within the past 24 hours 5. Acute intervention needed for co occurring medical disorder 6. Acute intervention needed for co occurring psychiatric disorder 7. Severe withdrawal that cannot be handled at a lower level of care (continued vomiting, continued diarrhea, abnormal vital signs) requiring intravenous medication and/or fluids 8. Admitting History and Physical - Admission Chief Complaint: alcohol and heroin detox History of Present Illness: 44 yo M PMH of Asthma and alcohol , heroin abuse. pt states that he last drank alcohol last night around midnight. he states he drank a bottle of wine and 6 beers. he states he normally drinks 1 pint of vodka daily. he was last at detox mid march and states he starting drinking again on , as the environment was tempting. PSH: cholecystectomy 10 years ago PM: HTN Meds: none - Past Medical History Cardiovascular: Yes: HTN - Past Surgical History Past Surgical History: Yes: Cholecystectomy - Smoking History Smoking history: Current every day smoker Have you smoked in the past 12 months: Yes Aproximately how many cigarettes per day: 10 - Alcohol/Substance Use Hx Alcohol Use: Yes History of Substance Use: reports: Cocaine, Heroin - Social History ADL: Independent History of Recent Travel: No Admission ROS BHS - HPI Allergies/Adverse Reactions: Allergies Allergy/AdvReac Type Severity Reaction Status Date / Time peanut Allergy Severe Hives Verified 04/30/19 12:18 No Known Drug Allergies Allergy Verified 04/30/19 12:18 - Ebola screening Have you traveled outside of the country in the last 21 days: No (N) Have you had contact with anyone from an Ebola affected area: No Do you have a fever: No Patient History - Patient Medical History Hx Anemia: No Hx Asthma: No Hx Chronic Obstructive Pulmonary Disease (COPD): No Hx Cancer: No Hx Cardiac Disorders: No Hx Congestive Heart Failure: No Hx Hypertension: Yes (non compliance) Hx Hypercholesterolemia: No Hx Pacemaker: No HX Cerebrovascular Accident: No Hx Seizures: No Hx Dementia: No Hx Diabetes: No Hx Gastrointestinal Disorders: No Hx Liver Disease: No Hx Genitourinary Disorders: No Hx Sexually Transmitted Disorders: No Hx Renal Disease (ESRD): No Hx Thyroid Disease: No Hx Human Immunodeficiency Virus (HIV): No (NEGATIVE HX last 06/03) Hx Hepatitis C: No (negative) Hx Depression: No Hx Suicide Attempt: No (denies) Hx Bipolar Disorder: No Hx Schizophrenia: No - Patient Surgical History Past Surgical History: Yes Hx Neurologic Surgery: No Hx Cataract Extraction: No Hx Cardiac Surgery: No Hx Lung Surgery: No Hx Breast Surgery: No Hx Breast Biopsy: No Hx Abdominal Surgery: No Hx Appendectomy: No Hx Cholecystectomy: Yes (2012 [facility] in [place]) Hx Genitourinary Surgery: No Hx Section: No Hx Orthopedic Surgery: No Anesthesia Reaction: No - PPD History Date: 09/24/18 Results: 0mm - Smoking Cessation Smoking history: Current every day smoker Have you smoked in the past 12 months: Yes Aproximately how many cigarettes per day: 10 Cigars Per Day: 0 Hx Chewing Tobacco Use: No Initiated information on smoking cessation: Yes 'Breaking Loose' booklet given: 04/30/19 - Substances abused Alcohol Substance route: Oral Frequency: Daily Amount used: 1 pint Age of first use: 18 Date of last use: 04/29/19 Heroin Substance route: Inhalation Frequency: Daily Amount used: 1 bundle Age of first use: 30 Date of last use: 04/28/19 Marijuana/Hashish Substance route: Smoking Frequency: Daily Amount used: 1 joint Age of first use: 22 Admission Physical Exam BHS - Vital Signs Vital Signs: Vital Signs - 24 hr 04/30/19 12:16 Temperature 97.9 F Pulse Rate 94 H Respiratory 20 Rate Blood Pressure 139/98 - Physical General Appearance: Yes: Within Normal Limits, No Apparent Distress HEENTM: Yes: Within Normal Limits, EOMI, Hearing grossly Normal Respiratory: Yes: Within Normal Limits, Lungs Clear, Normal Breath Sounds, No Accessory Muscle Use Neck: Yes: No masses,lesions,Nodules, Supple Cardiology: Yes: Within Normal Limits, Regular Rhythm, S1, S2, Tachycardia. No : JVD, Murmur Abdominal: Yes: Normal Bowel Sounds, Soft, Tenderness (RUQ) Back: No: CVA Tenderness Extremities: Yes: Within Normal Limits. No: Swelling, Calf Tenderness Neurological: Yes: Within Normal Limits Integumentary: Yes: Within Normal Limits Breathalyzer - Breathalyzer Breathalyzer: 0 Urine Drug Screen - Test Device Lot number: [id number] Expiration date: 11/14/20 - Control Is test valid?: Yes - Results Drug screen NEGATIVE: No Urine drug screen results: THC-Marijuana Inpatient Rehab Admission - Rehab Decision to Admit Inpatient rehab admission?: No
--- NOTE | 2019-04-30 15:41 | PN ---
"Teaching Attending Note Name of Resident: Valery Trujillo ATTENDING PHYSICIAN STATEMENT I saw and evaluated the patient. I reviewed the resident's note and discussed the case with the resident. I agree with the resident's findings and plan as documented. SUBJECTIVE: pt here requesting detox from etoh use , reports drinking after work , 1 bottle wine/day, latest use 1 am today. PMHX : denies OBJECTIVE:wnwd , evasive Vital Signs - 24 hr 04/30/19 12:16 Temperature 97.9 F Pulse Rate 94 H Respiratory 20 Rate Blood Pressure 139/98 This report was requested by: Laya Galindo | Reference #: [id number] Others' Prescriptions Patient Name: Shad Knowles Date: 1975 Address: [address] [place] [address] Sex: Male Rx Written Rx Dispensed Drug Quantity Days Supply Prescriber Name 11/14/2018 11/14/2018 chlordiazepoxide 25 mg capsule 18 3 Tu Fernandez 08/19/2018 08/19/2018 chlordiazepoxide 25 mg capsule 18 3 Shine Wright ASSESSMENT AND PLAN: AUD - Valium detox"
[2019-04-30] MEDS ORDERED: BISMUTH SUBSALICYLATE 524 MG/30 ML UD PO PRN (15:43)
[2019-04-30] MEDS ORDERED: hydrOXYzine PAMOATE 25 MG CAPSULE (FP) PO PRN (15:43)
[2019-04-30] MEDS ORDERED: MAGNESIUM HYDROX 2400MG/30ML ORAL SUSPENSION 30 ML CUP PO PRN (15:43)
[2019-04-30] MEDS ORDERED: ACETAMINOPHEN 325 MG TABLET (FP) PO PRN ×2 (15:43)
[2019-04-30] MEDS ORDERED: MAGNESIUM CITRATE 300 ML BOTTLE PO PRN (15:43)
[2019-04-30] MEDS ORDERED: MAG HYDROX/AL HYDROX/SIMETH 30 ML UNIT-DOSE CUP PO PRN (15:43)
[2019-04-30] MEDS ORDERED: MENTHOL/PHENOL 1 EACH UD MM PRN (15:43)
[2019-04-30] MEDS ORDERED: IBUPROFEN 400 MG TABLET (FP) PO PRN (15:43)
[2019-04-30] MEDS ORDERED: diazePAM 5 MG TABLET PO PRN (15:44)
[2019-04-30] MEDS: diazePAM 5 MG TABLET PO SCH ×2 (16:28→22:12)
[2019-04-30] MEDS: THIAMINE HCL 100 MG TABLET (FP) PO SCH (22:12)
[2019-04-30] MEDS: MELATONIN 5 MG TABLETS PO PRN (22:12)
[2019-05-01] MEDS: diazePAM 5 MG TABLET PO SCH (06:58)
[2019-05-01] MEDS ORDERED: diazePAM 5 MG TABLET PO SCH (10:00)
[2019-05-01] MEDS: PRENATAL VITAMINS W/ FOLIC ACID TABLET (FP) PO SCH (10:23)
--- NOTE | 2019-05-01 10:39 | PN ---
S CIWA - CIWA Score Nausea/Vomitin-No Nausea/No Vomiting Muscle Tremors: 3 Anxiety: 3 Agitation: 3 Paroxysmal Sweats: 3 Orientation: 0-Oriented Tacttile Disturbances: 0-None Auditory Disturbances: 0-None Visual Disturbances: 0-None Headache: 0-None Present CIWA-Ar Total Score: 12 BHS Progress Note (SOAP) Subjective: irritable agitation sweats body aches interrupted sleep Objective: 05/01/19 10:38 Vital Signs Temperature 97.7 F 05/01/19 06:00 Pulse Rate 83 05/01/19 06:00 Respiratory Rate 18 05/01/19 06:00 Blood Pressure 119/79 05/01/19 06:00 O2 Sat by Pulse Oximetry (%) labs pending aaox3 ambulating no acute distress Assessment: 05/01/19 10:39 withdrawals Plan: continue detox increase fluids pending labs
[2019-05-01] MEDS ORDERED: chlordiazePOXIDE HCL 10 MG CAPSULE PO PRN (11:22)
[2019-05-01] MEDS: chlordiazePOXIDE HCL 25 MG CAPSULE PO SCH ×2 (15:09→22:41)
[2019-05-01] MEDS: THIAMINE HCL 100 MG TABLET (FP) PO SCH (22:41)
[2019-05-02] MEDS: chlordiazePOXIDE HCL 25 MG CAPSULE PO SCH ×3 (05:41→21:39)
[2019-05-02] MEDS ORDERED: diazePAM 5 MG TABLET PO ONE (06:00)
[2019-05-02] MEDS: PRENATAL VITAMINS W/ FOLIC ACID TABLET (FP) PO SCH (10:28)
--- NOTE | 2019-05-02 11:28 | PN ---
S CIWA - CIWA Score Nausea/Vomitin-No Nausea/No Vomiting Muscle Tremors: 2 Anxiety: 2 Agitation: 3 Paroxysmal Sweats: 2 Orientation: 0-Oriented Tacttile Disturbances: 0-None Auditory Disturbances: 0-None Visual Disturbances: 0-None Headache: 0-None Present CIWA-Ar Total Score: 9 BHS Progress Note (SOAP) Subjective: sweats irritable anxiety Objective: 05/02/19 11:27 Vital Signs Temperature 97.7 F 05/02/19 10:00 Pulse Rate 92 H 05/02/19 10:00 Respiratory Rate 18 05/02/19 10:00 Blood Pressure 143/73 05/02/19 10:00 O2 Sat by Pulse Oximetry (%) pending labs aaox3 ambulating no acute distress Assessment: 05/02/19 11:27 withdrawals Plan: continue detox increase fluids
[2019-05-02] MEDS: THIAMINE HCL 100 MG TABLET (FP) PO SCH (21:38)
[2019-05-02] MEDS: MELATONIN 5 MG TABLETS PO PRN (21:39)
[2019-05-03] MEDS ORDERED: chlordiazePOXIDE 5 MG CAPSULE PO SCH (05:00)
[2019-05-03] MEDS: PRENATAL VITAMINS W/ FOLIC ACID TABLET (FP) PO SCH (09:13)
[2019-05-03 09:38] VITALS: BP 132/77; PULSE 91; TEMP 97.7
--- NOTE | 2019-05-03 11:55 | PN ---
[facility] CIWA - CIWA Score Nausea/Vomitin-No Nausea/No Vomiting Muscle Tremors: 1-None Visible, but [place] Anxiety: 1-Mildly Anxious Agitation: 0-Normal Activity Paroxysmal Sweats: No Perspiration Orientation: 0-Oriented Tacttile Disturbances: 0-None Auditory Disturbances: 0-None Visual Disturbances: 0-None Headache: 0-None Present CIWA-Ar Total Score: 2 BHS Progress Note (SOAP) Subjective: feeling better anxiety Objective: 05/03/19 11:54 Vital Signs Temperature 97.7 F 05/03/19 09:37 Pulse Rate 91 H 05/03/19 09:37 Respiratory Rate 05/03/19 09:37 Blood Pressure 132/77 05/03/19 09:37 O2 Sat by Pulse Oximetry (%) aaox3 ambulating no acute distress Assessment: 05/03/19 11:55 mild/no withdrawals Plan: d/c today
--- NOTE | 2019-05-03 11:56 | DS ---
[facility] Detox Discharge Summary Admission Date: 04/30/19 Discharge Date: 05/03/19 - History Present History: Alcohol Dependence, Cocaine Dependence, Pcp Dependence - Physical Exam Results Vital Signs: Vital Signs Temperature 97.7 F 05/03/19 09:37 Pulse Rate 91 H 05/03/19 09:37 Respiratory Rate 05/03/19 09:37 Blood Pressure 132/77 05/03/19 09:37 O2 Sat by Pulse Oximetry (%) Pertinent Admission Physical Exam Findings: Vital Signs Temperature 97.7 F 05/03/19 09:37 Pulse Rate 91 H 05/03/19 09:37 Respiratory Rate 05/03/19 09:37 Blood Pressure 132/77 05/03/19 09:37 O2 Sat by Pulse Oximetry (%) aaox3 ambulating no acute distress - Treatment Hospital Course: Detox Protocol Followed, Detoxed Safely, Responded well, Discharged Condition Good, Rehab Referral Accepted - Medication Discharge Medications: Ambulatory Orders Naloxone HCl [Narcan] 4 mg NS ASDIR PRN #1 spray 04/07/19 - Diagnosis (1) Alcohol dependence with uncomplicated withdrawal Current Visit: Yes Status: Chronic (2) Nicotine dependence Current Visit: Yes Status: Chronic Qualifiers: Nicotine product type: cigarettes Substance use status: uncomplicated Qualified Code(s): F17.210 - Nicotine dependence, cigarettes, uncomplicated (3) Opioid abuse Current Visit: No Status: Acute (4) Cannabis dependence, uncomplicated Current Visit: No Status: Chronic (5) Cocaine dependence, uncomplicated Current Visit: No Status: Chronic (6) Hypertension Current Visit: Yes Status: Chronic Qualifiers: Hypertension type: essential hypertension Qualified Code(s): I10 - Essential (primary) hypertension (7) PCP dependence Current Visit: Yes Status: Chronic - AMA Did Patient Leave Against Medical Advice: No
[2019-05-04] MEDS ORDERED: chlordiazePOXIDE HCL 10 MG CAPSULE PO PRN
[2019-05-04] MEDS ORDERED: chlordiazePOXIDE HCL 10 MG CAPSULE PO SCH (05:00)
[2019-05-05] MEDS ORDERED: chlordiazePOXIDE HCL 10 MG CAPSULE PO ONE (05:00)
== END 2019-05-03 12:16 | disposition home or self-care (01) | DRG 773 ==
LOC: YASAS 11:58 → Y6N 15:57
PROVIDERS: ADMIT Allergy & Immunology; ATTEND Allergy & Immunology
PROC: HZ2ZZZZ Detoxification Services for Substance Abuse Treatment (ICD-10-PCS; principal; 2019-04-30)
DX: F10.230 Alcohol dependence with withdrawal, uncomplicated (principal); F11.20 Opioid dependence, uncomplicated; F14.20 Cocaine dependence, uncomplicated; F16.20 Hallucinogen dependence, uncomplicated; F12.20 Cannabis dependence, uncomplicated; F17.210 Nicotine dependence, cigarettes, uncomplicated; I10 Essential (primary) hypertension; Z90.49 Acquired absence of other specified parts of digestive tract; Z91.010 Allergy to peanuts

== ENCOUNTER 2019-05-22 10:46 | Inpatient (IN) | payer OTHER ==
--- NOTE | 2019-05-22 11:45 | HP ---
COWS - Scale Resting Pulse: 2= [place] 101-120 Sweatin= No chills or Flushing Restless Observation: 0= Sits Still Pupil Size: 0= Normal to Room Light Bone or Joint Aches: 0= None Runny Nose/ Eye Tearin= None GI Upset > 30mins: 0= None Tremor Observation: 0= None Yawning Observation: 0= None Anxiety or Irritability: 1=Feels Anxious/Irritable Goose Flesh Skin: 0=Smooth Skin (last used 7am today) COWS Score: 3 CIWA Score - Admission Criteria OASAS Guidelines: Admission for Medically Managed Detox: Requires at least one of the followin. CIWA greater than 12 2. Seizures within the past 24 hours 3. Delirium tremens within the past 24 hours 4. Hallucinations within the past 24 hours 5. Acute intervention needed for co occurring medical disorder 6. Acute intervention needed for co occurring psychiatric disorder 7. Severe withdrawal that cannot be handled at a lower level of care (continued vomiting, continued diarrhea, abnormal vital signs) requiring intravenous medication and/or fluids 8. Admitting History and Physical - Admission Chief Complaint: Mr. Knowles is a 44 yo man who presents to [facility] requesting admission for detox from heroin. History of Present Illness: Mr. Knowles is a 44 yo man who presents to [facility] requesting admission for detox from heroin. Had had admissions here, most recent in March and April , did not complete and did not follow up with REhab plan. PMH: HTN, noncompliant with medications PSH; cholecystectomy Psych: none Substance use history Alcohol: one pint of Srinivas Sanchez daily, first use at age 20 y, lst use last night. No black outs, no seizure history. Shakey when abstinent. 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 Heroin: first use age 27 y, last use 7a today, quantity: half a bundle per day. No ODs. never in a methadone program Nicotine: first use age: 17y, last use today, quantity: 1/2 pack per day Cocaine: first use age 22y, last use:last night, quantity: few bumps Marijuana: 5-6 joints per day, first use at age 19y, last use yesterday - Past Medical History Cardiovascular: Yes: HTN - Past Surgical History Past Surgical History: Yes: Cholecystectomy - Smoking History Smoking history: Current every day smoker Have you smoked in the past 12 months: Yes Aproximately how many cigarettes per day: 10 - Alcohol/Substance Use Hx Alcohol Use: Yes History of Substance Use: reports: Cocaine, Heroin - Social History ADL: Independent History of Recent Travel: No Admission ROS S - [facility] Allergies/Adverse Reactions: Allergies Allergy/AdvReac Type Severity Reaction Status Date / Time peanut Allergy Severe Hives Verified 05/22/19 11:35 No Known Drug Allergies Allergy Verified 05/22/19 11:35 Exam Limitations: No Limitations - Ebola screening Have you traveled outside of the country in the last 21 days: No Have you had contact with anyone from an Ebola affected area: No Have you been sick,other than usual withdrawal symptoms: No Do you have a fever: No - Review of Systems Constitutional: No Symptoms Reported EENT: reports: No Symptoms Reported Cardiac: reports: No Symptoms Reported GI: reports: No Symptoms Reported : reports: No Symptoms Reported Musculoskeletal: reports: No Symptoms Reported Neuro: reports: No Symptoms reported Endocrine: reports: No Symptoms Reported Hematology: reports: No Symptoms Reported Psychiatric: reports: No Sypmtoms Reported Patient History - Patient Medical History Hx Anemia: No Hx Asthma: No Hx Chronic Obstructive Pulmonary Disease (COPD): No Hx Cancer: No Hx Cardiac Disorders: No Hx Congestive Heart Failure: No Hx Hypertension: Yes (non compliance) Hx Hypercholesterolemia: No Hx Pacemaker: No HX Cerebrovascular Accident: No Hx Seizures: No Hx Dementia: No Hx Diabetes: No Hx Gastrointestinal Disorders: No Hx Liver Disease: No Hx Genitourinary Disorders: No Hx Sexually Transmitted Disorders: No Hx Renal Disease (ESRD): No Hx Thyroid Disease: No Hx Human Immunodeficiency Virus (HIV): No (NEGATIVE HX last 06/03) Hx Hepatitis C: No (negative) Hx Depression: No Hx Suicide Attempt: No (denies) Hx Bipolar Disorder: No Hx Schizophrenia: No - Patient Surgical History Past Surgical History: Yes Hx Neurologic Surgery: No Hx Cataract Extraction: No Hx Cardiac Surgery: No Hx Lung Surgery: No Hx Breast Surgery: No Hx Breast Biopsy: No Hx Abdominal Surgery: No Hx Appendectomy: No Hx Cholecystectomy: Yes (2012 [facility] in [place]) Hx Genitourinary Surgery: No Hx Section: No Hx Orthopedic Surgery: No Anesthesia Reaction: No - PPD History Date: 09/24/18 Results: 0mm - Smoking Cessation Smoking history: Current every day smoker Have you smoked in the past 12 months: Yes Aproximately how many cigarettes per day: 10 Cigars Per Day: 0 Hx Chewing Tobacco Use: No Initiated information on smoking cessation: Yes 'Breaking Loose' booklet given: 05/22/19 - Substance & Tx. History Substance Use Type: Alcohol, Heroin - Substances abused Alcohol Substance route: Oral Frequency: Daily Amount used: 1 [place] Age of first use: 20 Date of last use: 05/21/19 Heroin Substance route: Inhalation Frequency: Daily Amount used: 6 BAGS Age of first use: 27 Date of last use: 05/22/19 Admission Physical Exam [facility] - Physical General Appearance: Yes: Within Normal Limits HEENTM: Yes: Within Normal Limits Respiratory: Yes: Within Normal Limits Cardiology: Yes: Irregular (skipping beats, has been told this in the past, saw Cardiology in childhood/told everything was ok) Abdominal: Yes: Within Normal Limits Genitourinary: Yes: Within Normal Limits, Other (deferred) Back: Yes: Normal Inspection Musculoskeletal: Yes: Within Normal Limits Extremities: Yes: Within Normal Limits Neurological: Yes: Fully Oriented, Alert, Normal Response Integumentary: Yes: Within Normal Limits Lymphatic: Yes: Within Normal Limits - Diagnostic (1) Opioid abuse Current Visit: Yes Status: Acute (2) Alcohol dependence with uncomplicated withdrawal Current Visit: Yes Status: Acute (3) Cannabis dependence, uncomplicated Current Visit: Yes Status: Chronic (4) Cocaine dependence, uncomplicated Current Visit: Yes Status: Chronic (5) Hypertension Current Visit: Yes Status: Acute Qualifiers: Hypertension type: essential hypertension Qualified Code(s): I10 - Essential (primary) hypertension (6) Nicotine dependence Current Visit: Yes Status: Acute Qualifiers: Nicotine product type: cigarettes Substance use status: uncomplicated Qualified Code(s): F17.210 - Nicotine dependence, cigarettes, uncomplicated Cleared for Admission S - Detox or Rehab [facility] Level of Care: Medically Managed Breathalyzer - Breathalyzer Breathalyzer: 0 Urine Drug Screen - Test Device Lot number: [id number] Expiration date: 03/16/21 - Control Is test valid?: Yes - Results Drug screen NEGATIVE: No Urine drug screen results: THC-Marijuana, ALAN-Cocaine, MOP-Opiates, OXY- Oxycodone, BZO-Benzodiazepines Inpatient Rehab Admission - Rehab Decision to Admit Inpatient rehab admission?: No
[2019-05-22 11:52] VITALS: BMI 36.5
[2019-05-22] MEDS ORDERED: MAGNESIUM HYDROX 2400MG/30ML ORAL SUSPENSION 30 ML CUP PO PRN (11:57)
[2019-05-22] MEDS ORDERED: BISMUTH SUBSALICYLATE 524 MG/30 ML UD PO PRN (11:57)
[2019-05-22] MEDS ORDERED: MAGNESIUM CITRATE 300 ML BOTTLE PO PRN (11:57)
[2019-05-22] MEDS ORDERED: METHOCARBAMOL 500 MG TABLET PO PRN (11:57)
[2019-05-22] MEDS ORDERED: MAG HYDROX/AL HYDROX/SIMETH 30 ML UNIT-DOSE CUP PO PRN (11:57)
[2019-05-22] MEDS ORDERED: cloNIDine HCL 0.1 MG TABLET PO PRN (11:57)
[2019-05-22] MEDS ORDERED: hydrOXYzine PAMOATE 25 MG CAPSULE (FP) PO PRN (11:57)
[2019-05-22] MEDS ORDERED: ACETAMINOPHEN 325 MG TABLET (FP) PO PRN ×2 (11:57)
[2019-05-22] MEDS ORDERED: MENTHOL/PHENOL 1 EACH UD MM PRN (11:57)
[2019-05-22] MEDS ORDERED: chlordiazePOXIDE HCL 25 MG CAPSULE PO PRN (11:57)
[2019-05-22] MEDS ORDERED: IBUPROFEN 400 MG TABLET (FP) PO PRN (11:57)
[2019-05-22] MEDS ORDERED: METHADONE HCL 10 MG TABLET (FOR DETOX USE ONLY) PO ONE (12:50)
[2019-05-22 18:02] LABS: HEMATOCRIT 47.9 % (35.4-49); HEMOGLOBIN 16.2 GM/dL (11.7-16.9); MCHC 33.8 g/dl (32.0-35.9); MEAN CELL VOLUME 88.8 fl (80-96); MEAN PLT VOLUME 9.8 fl (7.5-11.1); PLATELET COUNT 263 K/MM3 (134-434); RDW 14.6 % (11.9-15.9); WHITE BLOOD COUNT 7.9 K/mm3 (4.0-10.0)
[2019-05-22 18:12] LABS: ALBUMIN 4.1 g/dl (3.4-5.0); BILIRUBIN,TOTAL 0.5 mg/dL (0.2-1); BLOOD UREA NITROGEN 16.4 mg/dL (7-18); CALCIUM 9.6 mg/dL (8.5-10.1); CREATININE 1.2 mg/dL (0.55-1.3); POTASSIUM 3.9 mmol/L (3.5-5.1); TOT PROT 7.2 g/dl (6.4-8.2)
[2019-05-22] MEDS: THIAMINE HCL 100 MG TABLET (FP) PO SCH (22:11)
[2019-05-22] MEDS: MELATONIN 5 MG TABLETS PO PRN (22:11)
[2019-05-22] MEDS: chlordiazePOXIDE HCL 25 MG CAPSULE PO SCH (22:11)
[2019-05-23] MEDS: chlordiazePOXIDE HCL 25 MG CAPSULE PO SCH ×4 (06:16→22:29)
--- NOTE | 2019-05-23 08:39 | PN ---
[facility] Progress Note Note: Patient's ECG is abnormal. The first ECG indicates atrial fluter with variable AV block. The repeat ECG indicates Sinus rhythm with premature atrial complexes. Left posterior fascicular block. ST and T wave abnormality. Consider anterolateral ischemia. Abnormal ECG. Contated Dr Beasley in ER and patient was to be transferred to ER for further evaluation. Patient refused and signed the refusal of exam. treatment form Vital Signs Temperature 97.1 F L 05/23/19 06:52 Pulse Rate 89 05/23/19 06:52 Respiratory Rate 18 05/23/19 06:52 Blood Pressure 123/85 05/23/19 06:52 O2 Sat by Pulse Oximetry (%) Laboratory Last Values WBC 7.9 K/mm3 (4.0-10.0) 05/22/19 12:20 RBC 5.40 M/mm3 (4.00-5.60) 05/22/19 12:20 Hgb 16.2 GM/dL (11.7-16.9) 05/22/19 12:20 Hct 47.9 % (35.4-49) 05/22/19 12:20 MCV 88.8 fl (80-96) 05/22/19 12:20 MCH 30.0 pg (25.7-33.7) 05/22/19 12:20 MCHC 33.8 g/dl (32.0-35.9) 05/22/19 12:20 RDW 14.6 % (11.9-15.9) 05/22/19 12:20 Plt Count 263 K/MM3 (134-434) 05/22/19 12:20 MPV 9.8 fl (7.5-11.1) 05/22/19 12:20 Sodium 138 mmol/L (136-145) 05/22/19 12:20 Potassium 3.9 mmol/L (3.5-5.1) 05/22/19 12:20 Chloride 103 mmol/L (98-107) 05/22/19 12:20 Carbon Dioxide 24 mmol/L (21-32) 05/22/19 12:20 Anion Gap 10 MMOL/L (8-16) 05/22/19 12:20 BUN 16.4 mg/dL (7-18) 05/22/19 12:20 Creatinine 1.2 mg/dL (0.55-1.3) 05/22/19 12:20 Est GFR (CKD-EPI)AfAm 85.92 05/22/19 12:20 Est GFR (CKD-EPI)NonAf 74.14 05/22/19 12:20 Random Glucose 116 mg/dL (74-106) H 05/22/19 12:20 Calcium 9.6 mg/dL (8.5-10.1) 05/22/19 12:20 Total Bilirubin 0.5 mg/dL (0.2-1) 05/22/19 12:20 AST 29 U/L (15-37) 05/22/19 12:20 ALT 56 U/L (13-61) 05/22/19 12:20 Alkaline Phosphatase 75 U/L (45-117) 05/22/19 12:20 Total Protein 7.2 g/dl (6.4-8.2) 05/22/19 12:20 Albumin 4.1 g/dl (3.4-5.0) 05/22/19 12:20 Action: Monitor patient
[2019-05-23] MEDS ORDERED: METHADONE (DETOX) 20 MG, METHADONE (DETOX) 5 MG PO ONE (10:00)
[2019-05-23] MEDS ORDERED: METHADONE HCL 10 MG TABLET (FOR DETOX USE ONLY) ONE (10:31)
[2019-05-23] MEDS ORDERED: METHADONE HCL 5 MG TABLET (FOR DETOX USE ONLY) ONE (10:31)
[2019-05-23] MEDS: PRENATAL VITAMINS W/ FOLIC ACID TABLET (FP) PO SCH (10:59)
--- NOTE | 2019-05-23 11:17 | PN ---
[facility] CIWA - CIWA Score Nausea/Vomitin-Mild Nausea/No Vomiting Muscle Tremors: 3 Anxiety: 3 Agitation: 3 Paroxysmal Sweats: 2 Orientation: 0-Oriented Tacttile Disturbances: 0-None Auditory Disturbances: 0-None Visual Disturbances: 0-None Headache: 0-None Present CIWA-Ar Total Score: 12 S COWS - Scale Resting Pulse: 1= [place] 81-100 Sweatin= Chills/Flushing Restless Observation: 0= Sits Still Pupil Size: 0= Normal to Room Light Bone or Joint Aches: 1= Mild Discomfort Runny Nose/ Eye Tearin= None GI Upset > 30mins: 2= Nausea/Diarrhea Tremor Observation of Outstretched Hands: 2= Slight Tremor Visible Yawning Observation: 0= None Anxiety or Irritability: 1=Feels Anxious/Irritable Goose Flesh Skin: 0=Smooth Skin COWS Score: 8 [facility] Progress Note (SOAP) Subjective: 44 years old male admitted on 05/22/19 for alcohol and opiate withdrawal sx management treating with librium and methadone detox regiments long history of cardiac insult ekg indicated premature atrial ventricular complex to premature atrial complex to ischemic events positive cocaine utox upon admission states that cocain as major problem substance patient agrees to go to the ER for cardioprofiling information provided to Dr Beasley around 1113am at [id number] disposition: patient may return to [facility] for alcohol and opiate detox patient received librium 50mg around 6am and 10am methadone 25mg around 10am patient was taking aspirin 81mg po daily resume aspirin hold bp medication due to current bp within acceptable range Objective: 05/23/19 11:25 Vital Signs Temperature 97.1 F L 05/23/19 09:21 Pulse Rate 95 H 05/23/19 09:21 Respiratory Rate 18 05/23/19 09:21 Blood Pressure 112/76 05/23/19 09:21 O2 Sat by Pulse Oximetry (%) Laboratory Last Values WBC 7.9 K/mm3 (4.0-10.0) 05/22/19 12:20 RBC 5.40 M/mm3 (4.00-5.60) 05/22/19 12:20 Hgb 16.2 GM/dL (11.7-16.9) 05/22/19 12:20 Hct 47.9 % (35.4-49) 05/22/19 12:20 MCV 88.8 fl (80-96) 05/22/19 12:20 MCH 30.0 pg (25.7-33.7) 05/22/19 12:20 MCHC 33.8 g/dl (32.0-35.9) 05/22/19 12:20 RDW 14.6 % (11.9-15.9) 05/22/19 12:20 Plt Count 263 K/MM3 (134-434) 05/22/19 12:20 MPV 9.8 fl (7.5-11.1) 05/22/19 12:20 Sodium 138 mmol/L (136-145) 05/22/19 12:20 Potassium 3.9 mmol/L (3.5-5.1) 05/22/19 12:20 Chloride 103 mmol/L (98-107) 05/22/19 12:20 Carbon Dioxide 24 mmol/L (21-32) 05/22/19 12:20 Anion Gap 10 MMOL/L (8-16) 05/22/19 12:20 BUN 16.4 mg/dL (7-18) 05/22/19 12:20 Creatinine 1.2 mg/dL (0.55-1.3) 05/22/19 12:20 Est GFR (CKD-EPI)AfAm 85.92 05/22/19 12:20 Est GFR (CKD-EPI)NonAf 74.14 05/22/19 12:20 Random Glucose 116 mg/dL (74-106) H 05/22/19 12:20 Calcium 9.6 mg/dL (8.5-10.1) 05/22/19 12:20 Total Bilirubin 0.5 mg/dL (0.2-1) 05/22/19 12:20 AST 29 U/L (15-37) 05/22/19 12:20 ALT 56 U/L (13-61) 05/22/19 12:20 Alkaline Phosphatase 75 U/L (45-117) 05/22/19 12:20 Total Protein 7.2 g/dl (6.4-8.2) 05/22/19 12:20 Albumin 4.1 g/dl (3.4-5.0) 05/22/19 12:20 lab noted Assessment: 05/23/19 11:25 alcohol and opiate withdrawal Plan: libirum and methadone regiments
[2019-05-23] MEDS: ASPIRIN 81 MG CHEWABLE TABLETS PO SCH (13:59)
--- NOTE | 2019-05-23 14:30 | EKG ---
Test Reason : Blood Pressure : / mmHG Vent. Rate : 083 BPM Atrial Rate : 083 BPM P-R Int : 134 ms QRS Dur : 112 ms QT Int : 372 ms P-R-T Axes : 000 174 130 degrees QTc Int : 437 ms SINUS RHYTHM WITH PREMATURE ATRIAL COMPLEXES LEFT POSTERIOR FASCICULAR BLOCK ABNORMAL ECG WHEN COMPARED WITH ECG OF 22-MAY-2019 15:52, SINUS RHYTHM HAS REPLACED ATRIAL FLUTTER LEFT POSTERIOR FASCICULAR BLOCK IS NOW PRESENT Confirmed by VAUGHN LEW MD ([id number]) on 05/23/2019 2:29:39 PM Referred By: Confirmed By:VAUGHN LEW MD
--- NOTE | 2019-05-23 14:30 | EKG ---
Test Reason : Blood Pressure : / mmHG Vent. Rate : 097 BPM Atrial Rate : 185 BPM P-R Int : 000 ms QRS Dur : 106 ms QT Int : 352 ms P-R-T Axes : 040 017 071 degrees QTc Int : 447 ms ATRIAL FLUTTER WITH VARIABLE A-V BLOCK NONSPECIFIC T WAVE ABNORMALITY ABNORMAL ECG WHEN COMPARED WITH ECG OF 04-APR-2019 18:55, ATRIAL FLUTTER HAS REPLACED SINUS RHYTHM Confirmed by LOUANN SLAUGHTER, VAUGHN ([id number]) on 05/23/2019 2:30:14 PM Referred By: Confirmed By:VAUGHN LEW MD
[2019-05-23] MEDS: THIAMINE HCL 100 MG TABLET (FP) PO SCH (22:29)
[2019-05-23] MEDS: MELATONIN 5 MG TABLETS PO PRN (22:29)
[2019-05-24] MEDS: chlordiazePOXIDE HCL 25 MG CAPSULE PO SCH ×4 (05:28→22:10)
[2019-05-24] MEDS ORDERED: METHADONE HCL 10 MG TABLET (FOR DETOX USE ONLY) PO ONE (10:00)
[2019-05-24] MEDS: PRENATAL VITAMINS W/ FOLIC ACID TABLET (FP) PO SCH (10:17)
[2019-05-24] MEDS: ASPIRIN 81 MG CHEWABLE TABLETS PO SCH (10:17)
--- NOTE | 2019-05-24 14:49 | PN ---
[facility] CIWA - CIWA Score Nausea/Vomitin-No Nausea/No Vomiting Muscle Tremors: None Anxiety: 0-No Anxiety, at Ease Agitation: 0-Normal Activity Paroxysmal Sweats: No Perspiration Orientation: 0-Oriented Tacttile Disturbances: 0-None Auditory Disturbances: 0-None Visual Disturbances: 0-None Headache: 0-None Present CIWA-Ar Total Score: 0 S COWS - Scale Resting Pulse: 1= [place] 81-100 Sweatin= No chills or Flushing Restless Observation: 1= Difficult to Sit Still Pupil Size: 0= Normal to Room Light Bone or Joint Aches: 0= None Runny Nose/ Eye Tearin= Nasal Congestion GI Upset > 30mins: 0= None Tremor Observation of Outstretched Hands: 0= None Yawning Observation: 0= None Anxiety or Irritability: 0= None Goose Flesh Skin: 0=Smooth Skin COWS Score: 3 [facility] Progress Note (SOAP) Subjective: Mr. Barksdale complains of feeling tired. Went to ED due to findings on EKG, told everything was "fine" Objective: 05/24/19 14:47 Laboratory Tests 05/22/19 05/22/19 05/22/19 12:20 12:20 12:20 WBC 7.9 RBC 5.40 Hgb 16.2 Hct 47.9 MCV 88.8 MCH 30.0 MCHC 33.8 RDW 14.6 Plt Count 263 MPV 9.8 Sodium 138 Potassium 3.9 Chloride 103 Carbon Dioxide 24 Anion Gap 10 BUN 16.4 Creatinine 1.2 Est GFR (CKD-EPI)AfAm 85.92 Est GFR (CKD-EPI)NonAf 74.14 Random Glucose 116 H Calcium 9.6 Total Bilirubin 0.5 AST 29 ALT 56 Alkaline Phosphatase 75 Total Protein 7.2 Albumin 4.1 RPR Titer Nonreactive Vital Signs - 24 hr 05/23/19 05/23/19 05/24/19 19:54 20:10 00:30 Temperature 97.6 F 97.6 F Pulse Rate 83 83 Respiratory 18 18 18 Rate Blood Pressure 133/88 133/88 05/24/19 05/24/19 05/24/19 03:30 06:37 06:45 Temperature 97.1 F L Pulse Rate 83 Respiratory 16 18 18 Rate Blood Pressure 100/77 05/24/19 05/24/19 09:09 12:51 Temperature 97.0 F L 96.8 F L Pulse Rate 87 83 Respiratory 18 18 Rate Blood Pressure 119/67 128/90 PE Gnl: WDWN, in no distress, in bed MS: awake, alert, easily aroused from sleep CN; pupils 3mm, reactive Motor: moves limbs symetrically Assessment: 05/24/19 14:48 1. Alcohol use disorder 2. Opioid use disorder 3, EKG evaluated in ED due to report of Aflutter Plan: 1. continue withdrawl protocol for alcohol and opioid 2. EKGs were reviewed by ED, no change on comparison, rec: follow up outpt with internal medicine
[2019-05-24] MEDS: THIAMINE HCL 100 MG TABLET (FP) PO SCH (22:10)
[2019-05-24] MEDS: MELATONIN 5 MG TABLETS PO PRN (22:11)
[2019-05-25] MEDS ORDERED: chlordiazePOXIDE HCL 10 MG CAPSULE PO PRN
[2019-05-25] MEDS: chlordiazePOXIDE HCL 10 MG CAPSULE PO SCH ×4 (05:48→22:17)
[2019-05-25] MEDS ORDERED: METHADONE HCL 5 MG TABLET (FOR DETOX USE ONLY) ONE (09:07)
[2019-05-25] MEDS ORDERED: METHADONE HCL 10 MG TABLET (FOR DETOX USE ONLY) ONE (09:07)
[2019-05-25] MEDS ORDERED: METHADONE (DETOX) 10 MG, METHADONE (DETOX) 5 MG PO ONE (10:00)
[2019-05-25] MEDS: ASPIRIN 81 MG CHEWABLE TABLETS PO SCH (10:35)
[2019-05-25] MEDS: PRENATAL VITAMINS W/ FOLIC ACID TABLET (FP) PO SCH (10:35)
--- NOTE | 2019-05-25 11:45 | PN ---
[facility] CIWA - CIWA Score Nausea/Vomitin-No Nausea/No Vomiting Muscle Tremors: None Anxiety: 2 Agitation: 0-Normal Activity Paroxysmal Sweats: 3 Orientation: 0-Oriented Tacttile Disturbances: 0-None Auditory Disturbances: 0-None Visual Disturbances: 0-None Headache: 1-Very Mild CIWA-Ar Total Score: 6 S COWS - Scale Resting Pulse: 1= [place] 81-100 Sweatin= Chills/Flushing Restless Observation: 1= Difficult to Sit Still Pupil Size: 0= Normal to Room Light Bone or Joint Aches: 0= None Runny Nose/ Eye Tearin= None GI Upset > 30mins: 0= None Tremor Observation of Outstretched Hands: 0= None Yawning Observation: 1= 1-2x During Session Anxiety or Irritability: 2=Irritable/Anxious Goose Flesh Skin: 0=Smooth Skin COWS Score: 6 S Progress Note (SOAP) Subjective: c/o sweats, anxiety, and headache. Objective: 05/25/19 11:44 Vital Signs 05/25/19 05/25/19 06:39 08:32 Temperature 97.0 F L 98.4 F Pulse Rate 81 90 Respiratory 18 20 Rate Blood Pressure 100/64 122/93 Laboratory Last Values WBC 7.9 K/mm3 (4.0-10.0) 05/22/19 12:20 RBC 5.40 M/mm3 (4.00-5.60) 05/22/19 12:20 Hgb 16.2 GM/dL (11.7-16.9) 05/22/19 12:20 Hct 47.9 % (35.4-49) 05/22/19 12:20 MCV 88.8 fl (80-96) 05/22/19 12:20 MCH 30.0 pg (25.7-33.7) 05/22/19 12:20 MCHC 33.8 g/dl (32.0-35.9) 05/22/19 12:20 RDW 14.6 % (11.9-15.9) 05/22/19 12:20 Plt Count 263 K/MM3 (134-434) 05/22/19 12:20 MPV 9.8 fl (7.5-11.1) 05/22/19 12:20 Sodium 138 mmol/L (136-145) 05/22/19 12:20 Potassium 3.9 mmol/L (3.5-5.1) 05/22/19 12:20 Chloride 103 mmol/L (98-107) 05/22/19 12:20 Carbon Dioxide 24 mmol/L (21-32) 05/22/19 12:20 Anion Gap 10 MMOL/L (8-16) 05/22/19 12:20 BUN 16.4 mg/dL (7-18) 05/22/19 12:20 Creatinine 1.2 mg/dL (0.55-1.3) 05/22/19 12:20 Est GFR (CKD-EPI)AfAm 85.92 05/22/19 12:20 Est GFR (CKD-EPI)NonAf 74.14 05/22/19 12:20 Random Glucose 116 mg/dL (74-106) H 05/22/19 12:20 Calcium 9.6 mg/dL (8.5-10.1) 05/22/19 12:20 Total Bilirubin 0.5 mg/dL (0.2-1) 05/22/19 12:20 AST 29 U/L (15-37) 05/22/19 12:20 ALT 56 U/L (13-61) 05/22/19 12:20 Alkaline Phosphatase 75 U/L (45-117) 05/22/19 12:20 Total Protein 7.2 g/dl (6.4-8.2) 05/22/19 12:20 Albumin 4.1 g/dl (3.4-5.0) 05/22/19 12:20 RPR Titer Nonreactive (NONREACTIVE) 05/22/19 12:20 Labs noted. Assessment: 05/25/19 11:45 AOX 3, in no respiratory distress. Full ROM, ambulating in the unit. Withdrawal symptoms. Plan: continue detox.
[2019-05-25] MEDS: MELATONIN 5 MG TABLETS PO PRN (22:17)
[2019-05-25] MEDS: THIAMINE HCL 100 MG TABLET (FP) PO SCH (22:17)
[2019-05-26] MEDS ORDERED: chlordiazePOXIDE HCL 10 MG CAPSULE PO SCH (05:00)
--- NOTE | 2019-05-26 09:24 | PN ---
[facility] CIWA - CIWA Score Nausea/Vomitin-No Nausea/No Vomiting Muscle Tremors: 1-None Visible, but [place] Anxiety: 1-Mildly Anxious Agitation: 0-Normal Activity Paroxysmal Sweats: 1-Minimal Palms Moist Orientation: 0-Oriented Tacttile Disturbances: 0-None Auditory Disturbances: 0-None Visual Disturbances: 0-None Headache: 0-None Present CIWA-Ar Total Score: 3 S COWS - Scale Resting Pulse: 1= [place] 81-100 Sweatin= No chills or Flushing Restless Observation: 0= Sits Still Pupil Size: 0= Normal to Room Light Bone or Joint Aches: 0= None Runny Nose/ Eye Tearin= None GI Upset > 30mins: 0= None Tremor Observation of Outstretched Hands: 1= Tremor [place], Not Seen Yawning Observation: 0= None Anxiety or Irritability: 1=Feels Anxious/Irritable Goose Flesh Skin: 0=Smooth Skin COWS Score: 3 S Progress Note (SOAP) Subjective: 44 years old male admitted on 05/22/19 for alcohol and opiate withdrawal sx management treating with librium and methadone detox regiments feeling better today slept through the night less tremor patient had abnormal ekg medically cleared by ER medical team returned to detox plan 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[facility] patient denies shortness of breath denies chest pain denies dizziness Objective: 05/26/19 09:25 Vital Signs Temperature 97.0 F L 05/26/19 07:04 Pulse Rate 82 05/26/19 07:04 Respiratory Rate 18 05/26/19 07:04 Blood Pressure 100/69 05/26/19 07:04 O2 Sat by Pulse Oximetry (%) Laboratory Last Values WBC 7.9 K/mm3 (4.0-10.0) 05/22/19 12:20 RBC 5.40 M/mm3 (4.00-5.60) 05/22/19 12:20 Hgb 16.2 GM/dL (11.7-16.9) 05/22/19 12:20 Hct 47.9 % (35.4-49) 05/22/19 12:20 MCV 88.8 fl (80-96) 05/22/19 12:20 MCH 30.0 pg (25.7-33.7) 05/22/19 12:20 MCHC 33.8 g/dl (32.0-35.9) 05/22/19 12:20 RDW 14.6 % (11.9-15.9) 05/22/19 12:20 Plt Count 263 K/MM3 (134-434) 05/22/19 12:20 MPV 9.8 fl (7.5-11.1) 05/22/19 12:20 Sodium 138 mmol/L (136-145) 05/22/19 12:20 Potassium 3.9 mmol/L (3.5-5.1) 05/22/19 12:20 Chloride 103 mmol/L (98-107) 05/22/19 12:20 Carbon Dioxide 24 mmol/L (21-32) 05/22/19 12:20 Anion Gap 10 MMOL/L (8-16) 05/22/19 12:20 BUN 16.4 mg/dL (7-18) 05/22/19 12:20 Creatinine 1.2 mg/dL (0.55-1.3) 05/22/19 12:20 Est GFR (CKD-EPI)AfAm 85.92 05/22/19 12:20 Est GFR (CKD-EPI)NonAf 74.14 05/22/19 12:20 Random Glucose 116 mg/dL (74-106) H 05/22/19 12:20 Calcium 9.6 mg/dL (8.5-10.1) 05/22/19 12:20 Total Bilirubin 0.5 mg/dL (0.2-1) 05/22/19 12:20 AST 29 U/L (15-37) 05/22/19 12:20 ALT 56 U/L (13-61) 05/22/19 12:20 Alkaline Phosphatase 75 U/L (45-117) 05/22/19 12:20 Total Protein 7.2 g/dl (6.4-8.2) 05/22/19 12:20 Albumin 4.1 g/dl (3.4-5.0) 05/22/19 12:20 RPR Titer Nonreactive (NONREACTIVE) 05/22/19 12:20 lab noted Assessment: 05/26/19 09:25 alcohol and opiate withdrawal Plan: librium and methadone regiments
[2019-05-26 09:32] VITALS: BP 121/80; PULSE 95; TEMP 98.6
[2019-05-26] MEDS ORDERED: METHADONE HCL 10 MG TABLET (FOR DETOX USE ONLY) PO ONE (10:00)
[2019-05-26] MEDS: PRENATAL VITAMINS W/ FOLIC ACID TABLET (FP) PO SCH (10:21)
[2019-05-26] MEDS: ASPIRIN 81 MG CHEWABLE TABLETS PO SCH (10:21)
--- NOTE | 2019-05-26 15:21 | DS ---
[facility] Detox Discharge Summary Admission Date: 05/22/19 Discharge Date: 05/26/19 - History Present History: Alcohol Dependence, Opioid Dependence Additional Comments: 44 years old male admitted on 05/22/19 for alcohol and opiate withdrawal sx management treated with librium and methadone detox regiments patient prefers to leave the detox one day early as per estimated discharge date of 05/27/19 that [facility] money in his property today 05/23/19 sent to ER for abnormal ekg return without medical intervention no chest pain no shortness of breath no dizziness patient is alert oriented x 3 speech clearly coherently ambulating steady gait cardiac s1s2 regular rate rhythm respiratory clear lungs bilaterally on auscultation extremities full range of motion Pertinent Past History: time for discharge: 23 minutes - Physical Exam Results Vital Signs: Vital Signs Temperature 98.6 F 05/26/19 08:34 Pulse Rate 95 H 05/26/19 08:34 Respiratory Rate 18 05/26/19 08:34 Blood Pressure 121/80 05/26/19 08:34 O2 Sat by Pulse Oximetry (%) Pertinent Admission Physical Exam Findings: alcohol and opiate withdrawal Laboratory Last Values WBC 7.9 K/mm3 (4.0-10.0) 05/22/19 12:20 RBC 5.40 M/mm3 (4.00-5.60) 05/22/19 12:20 Hgb 16.2 GM/dL (11.7-16.9) 05/22/19 12:20 Hct 47.9 % (35.4-49) 05/22/19 12:20 MCV 88.8 fl (80-96) 05/22/19 12:20 MCH 30.0 pg (25.7-33.7) 05/22/19 12:20 MCHC 33.8 g/dl (32.0-35.9) 05/22/19 12:20 RDW 14.6 % (11.9-15.9) 05/22/19 12:20 Plt Count 263 K/MM3 (134-434) 05/22/19 12:20 MPV 9.8 fl (7.5-11.1) 05/22/19 12:20 Sodium 138 mmol/L (136-145) 05/22/19 12:20 Potassium 3.9 mmol/L (3.5-5.1) 05/22/19 12:20 Chloride 103 mmol/L (98-107) 05/22/19 12:20 Carbon Dioxide 24 mmol/L (21-32) 05/22/19 12:20 Anion Gap 10 MMOL/L (8-16) 05/22/19 12:20 BUN 16.4 mg/dL (7-18) 05/22/19 12:20 Creatinine 1.2 mg/dL (0.55-1.3) 05/22/19 12:20 Est GFR (CKD-EPI)AfAm 85.92 05/22/19 12:20 Est GFR (CKD-EPI)NonAf 74.14 05/22/19 12:20 Random Glucose 116 mg/dL (74-106) H 05/22/19 12:20 Calcium 9.6 mg/dL (8.5-10.1) 05/22/19 12:20 Total Bilirubin 0.5 mg/dL (0.2-1) 05/22/19 12:20 AST 29 U/L (15-37) 05/22/19 12:20 ALT 56 U/L (13-61) 05/22/19 12:20 Alkaline Phosphatase 75 U/L (45-117) 05/22/19 12:20 Total Protein 7.2 g/dl (6.4-8.2) 05/22/19 12:20 Albumin 4.1 g/dl (3.4-5.0) 05/22/19 12:20 RPR Titer Nonreactive (NONREACTIVE) 05/22/19 12:20 lab noted - Treatment Hospital Course: Detox Protocol Followed, Detoxed Safely, Responded well, Discharged Condition Good, Rehab Referral Accepted Patient has Accepted a Rehab Referral [facility] - Medication Discharge Medications: Ambulatory Orders Acetaminophen 650 mg PO Q6H PRN 05/23/19 Aspirin [Aspirin EC] 81 mg PO DAILY 05/23/19 Chlordiazepoxide [Librium -] 10 mg PO Q6HPO 05/23/19 Multivitamins [Multivit ([facility] Formulary)] 1 tab PO ONCE 05/23/19 - Diagnosis (1) Substance induced mood disorder Status: Suspected (2) Alcohol dependence with uncomplicated withdrawal Status: Acute (3) Hypertension Status: Chronic Qualifiers: Hypertension type: essential hypertension Qualified Code(s): I10 - Essential (primary) hypertension (4) Nicotine dependence Status: Acute Qualifiers: Nicotine product type: cigarettes Substance use status: in withdrawal Qualified Code(s): F17.213 - Nicotine dependence, cigarettes, with withdrawal - AMA Did Patient Leave Against Medical Advice: No CIWA Score - CIWA Score Nausea/Vomitin-No Nausea/No Vomiting Muscle Tremors: 1-None Visible, but [place] Anxiety: 1-Mildly Anxious Agitation: 0-Normal Activity Paroxysmal Sweats: No Perspiration Orientation: 0-Oriented Tacttile Disturbances: 0-None Auditory Disturbances: 0-None Visual Disturbances: 0-None Headache: 0-None Present CIWA-Ar Total Score: 2 COWS (PN) - Opiate Withdrawal Resting Pulse: 1= [place] 81-100 Sweatin= No chills or Flushing Restless Observation: 0= Sits Still Pupil Size: 0= Normal to Room Light Bone or Joint Aches: 0= None Runny Nose/ Eye Tearin= None GI Upset > 30mins: 0= None Tremor Observation of Outstretched Hands: 1= Tremor [place], Not Seen Yawning Observation: 0= None Anxiety or Irritability: 0= None Goose Flesh Skin: 0=Smooth Skin COWS Score: 2
[2019-05-27] MEDS ORDERED: chlordiazePOXIDE HCL 10 MG CAPSULE PO ONE (05:00)
[2019-05-27] MEDS ORDERED: METHADONE HCL 5 MG TABLET (FOR DETOX USE ONLY) PO ONE (06:00)
== END 2019-05-26 15:20 | disposition home or self-care (01) | DRG 773 ==
LOC: YASAS 10:46 → Y3N 12:19
PROVIDERS: ADMIT Allergy & Immunology; ATTEND Allergy & Immunology
PROC: HZ2ZZZZ Detoxification Services for Substance Abuse Treatment (ICD-10-PCS; principal; 2019-05-22)
DX: F10.230 Alcohol dependence with withdrawal, uncomplicated (principal); F11.23 Opioid dependence with withdrawal; F14.20 Cocaine dependence, uncomplicated; F12.20 Cannabis dependence, uncomplicated; F17.210 Nicotine dependence, cigarettes, uncomplicated; F19.24 Other psychoactive substance dependence with psychoactive substance-induced mood disorder; I10 Essential (primary) hypertension; R94.31 Abnormal electrocardiogram [ECG] [EKG]; Z90.49 Acquired absence of other specified parts of digestive tract; Z91.010 Allergy to peanuts; Z91.14 Patient's other noncompliance with medication regimen
CPT/HCPCS: 36415; 80053; 85027; 86593; 93005; 93010

== ENCOUNTER 2019-05-23 12:57 | Emergency (ER) | payer OTHER ==
[2019-05-23 13:41] VITALS: PULSE 90; TEMP 98; BMI 36.5
--- NOTE | 2019-05-23 13:42 | PDOC ---
History of Present Illness - General Chief Complaint: Irregular Heart Beat Stated Complaint: ABNORMAL EKG - History of Present Illness Initial Comments: Shad Knowles is a 44yo man with a PMH of HTN and polysubstance abuse (heroin, cocaine, alcohol) who presents from detox after an abnormal EKG today. He reports that he was told the EKG was abnormal, and staff at [facility] were concerned. He denies any symptoms currently but says that he did have some chest discomfort yesterday evening. He states that he is a current smoker but has not smoked since yesterday. Last heroin and cocaine use were 2 days ago. Past History - Past Medical History Allergies/Adverse Reactions: Allergies Allergy/AdvReac Type Severity Reaction Status Date / Time peanut Allergy Severe Hives Verified 05/23/19 13:41 No Known Drug Allergies Allergy Verified 05/23/19 13:41 Home Medications: Ambulatory Orders Acetaminophen 650 mg PO Q6H PRN 05/23/19 Aspirin [Aspirin EC] 81 mg PO DAILY 05/23/19 Chlordiazepoxide [Librium -] 10 mg PO Q6HPO 05/23/19 Multivitamins [Multivit ([facility] Formulary)] 1 tab PO ONCE 05/23/19 Anemia: No Asthma: No Cancer: No Cardiac Disorders: No CVA: No COPD: No CHF: No Dementia: No Diabetes: No GI Disorders: No Disorders: No HTN: Yes (non compliance) Hypercholesterolemia: No Kidney Stones: No Liver Disease: No Seizures: No Thyroid Disease: No - Surgical History Abdominal Surgery: No Appendectomy: No Cardiac Surgery: No Cholecystectomy: Yes (2012 [facility] in [place]) Lung Surgery: No Neurologic Surgery: No Orthopedic Surgery: No - Reproductive History Testicular Surgery: No - Psycho Social/Smoking Cessation Hx Smoking History: Current every day smoker Have you smoked in the past 12 months: Yes Number of Cigarettes Smoked Daily: 10 Cigars Per Day: 0 'Breaking Loose' booklet given: 05/22/19 Hx Alcohol Use: Yes Drug/Substance Use Hx: Yes Substance Use Type: Alcohol, Heroin Hx Substance Use Treatment: Yes Review of Systems - Review of Systems Comments:: General: No fevers, no chills, no weight or appetite change, no malaise HEENT: No changes in vision, no changes in hearing, no congestion, no sore throat CV: No chest pain, no palpitations, no LE edema Pulm: No SOB, no cough, no wheezing GI: No nausea or vomiting, no change in bowel habits, no melena : No frequency, no urgency, no dysuria Musc: No back pain, no joint swelling, no recent injury Skin: No rash, no lesions, no erythema Endo: No excessive thirst, no heat/cold intolerance Heme: No unusual bruising or bleeding, no swollen glands Neuro: No syncope, no numbness/tingling, no focal weakness Vasc: No claudication Psych: No recent change in mood, no SI or HI *Physical Exam - Physical Exam General: Comfortable, no acute distress HEENT: PERRL, EOMI, MMM, voice normal, normal neck ROM. Cards: RRR, no murmur appreciated, no chest wall tenderness Pulm: Comfortable on room air, clear to auscultation bilaterally Abd: Soft, nontender, nondistended Ext: Atraumatic. No LE edema. ROM intact. WWP Skin: Normal color, no rashes or lesions Neuro: A&Ox3, CN grossly intact, normal speech, motor/sensory grossly intact and symmetric Psych: Mood appropriate to situation ED Treatment Course - LABORATORY CBC & Chemistry Diagram: 05/23/19 14:00 05/23/19 14:00 - RADIOLOGY Radiology Studies Ordered: Category Date Time Status CHEST PA & LAT [RAD] Stat Radiology 05/23/19 13:27 Ordered Medical Decision Making - Medical Decision Making 05/23/19 13:41 Shad Knowles is a 44yo man with a PMH of HTN and polysubstance abuse (heroin, cocaine, alcohol) who presents from detox after an abnormal EKG today. - Benign exam - Will review EKG's from detox. Per chart review, had PACs and nonspecific t- wave abnormality seen on previous EKG's - CBC, CMP, trop, repeat EKG, CXR for evaluation 05/23/19 13:45 - Reviewed EKG's from detox. Admission EKG at 15:50 on 05/22/19 with NSR w/ PAC's , HR 97, normal axis, slightly long QRS at 106. Nonspecific t-wave abnormality in precordial and lateral leads seen on previous EKG from 04/04/19. No significant change from prior. Machine read as a-flutter but p-waves seen prior to every QRS - Detox EKG from 04:10 today w/ NSR, PAC's, HR 83. V1-V5 unchanged from previous , but suspect limb lead reversal 05/23/19 13:56 - Repeat EKG w/ NSR, HR 88, PAC's noted, normal axis, normal intervals. Nonspecific t-wave abnormality in precordial and lateral leads, unchanged from prior. No concerns 05/23/19 15:51 - Labs reviewed, unremarkable. Trop negative - CXR without focal pathology - Pt w/o symptoms. Given no change in EKG from previous and unremarkable labs, will discharge back to detox Discussed with Dr Gale Berger PGY2 Discharge - Discharge Information Problems reviewed: Yes Clinical Impression/Diagnosis: Abnormal EKG Condition: Stable Disposition: HOME - Admission No - Follow up/Referral Referrals: [facility] [place] [Provider Group] Koby Jacobs MD [Staff Physician] - - Patient Discharge Instructions Additional Instructions: Discharge Instructions: You were evaluated in the emergency department after abnormalities were seen on your EKG. These changes were not new today and were seen on previous EKG's. You should follow up with primary care and then follow up with a trial management associate for additional evaluation. You have been given contact information for the [facility] for primary care and Dr Jacobs for cardiology. Call to schedule appointments when you are finished with detox. Seek immediate care for any worsening symptoms, chest pain, difficulty breathing , or any other medical emergency. - Post Discharge Activity
[2019-05-23 14:19] LABS: BASO % 0.6 % (0-2.0); EOS % 1.6 % (0-4.5); HEMATOCRIT 42.8 % (35.4-49); HEMOGLOBIN 14.5 GM/dL (11.7-16.9); LYMPH % 34.8 % (8-40); MCH 29.6 pg (25.7-33.7); MCHC 33.8 g/dl (32.0-35.9); MEAN CELL VOLUME 87.5 fl (80-96); MEAN PLT VOLUME 9.1 fl (7.5-11.1); MONO % 8.1 % (3.8-10.2); NEUT % 54.9 % (42.8-82.8); PLATELET COUNT 224 K/MM3 (134-434); RBC 4.89 M/mm3 (4.00-5.60); RDW 14.2 % (11.9-15.9); WHITE BLOOD COUNT 5.3 K/mm3 (4.0-10.0)
--- NOTE | 2019-05-23 14:22 | PDOC ---
Attending Attestation - Resident Resident Name: [facility] - ED Attending Attestation I have performed the following: I have examined & evaluated the patient, The case was reviewed & discussed with the resident, I agree w/resident's findings & plan - HPI HPI: 05/23/19 14:21 44-year-old male with history of hypertension, polysubstance abuse including alcohol admitted to detox yesterday and started on Librium protocol sent now for evaluation of abnormal EKG. Patient had 2 EKGs performed, the first was read as atrial flutter, the second is premature atrial contractions with some concern for anterior lateral ischemia. The patient was asymptomatic, but sent to the emergency department for further evaluation. Patient denies any chest pain or palpitations or shortness of breath, had one episode of chest discomfort since yesterday that was nonexertional. At baseline, has unlimited ET, never had stress or echo. no PE risk factors - Physicial Exam PE: 05/23/19 14:57 Vital signs stable Alert lying comfortably in stretcher, no acute distress and speaking full sentences No JVD Heart is regular without murmurs, lungs are clear Abdomen benign No calf tenderness or edema - Medical Decision Making 05/23/19 14:57 44-year-old male sent from [facility] for evaluation of abnormal EKG read, asymptomatic except for atypical chest discomfort since yesterday, not consist ent with ACS or PE. Heart score of 1, on review of prior EKGs they are both sinus with APCs and there is no evidence of atrial flutter or acute ischemia. On comparison to prior EKGs, there is no acute change. Repeat EKG in ED Check labs including 1 troponin Chest x-ray If above is within normal limits, patient is low risk for ACS and does not require emergent further evaluation or management, should be referred to [facility] upon discharge from detox for outpatient echo and stress test. Heart Score/ECG Review - History History: Slightly suspicious - Electrocardiogram EKG: Normal - Age Age: </= 45 - Risk Factors Based on the list above the patient has:: 1-2 risk factors - Troponin Troponin: </= normal limit - Score Heart Score - Total: 1 #1 ECG reviewed & interpreted by me at: 13:51 General ECG Interpretation: Sinus Rhythm (APCs noted), Normal Rate (88), Normal Intervals (qtc 438), No acute ischemic changes Compared to previous ECG there are: No significant change (c/w 05/22, 05/23, and 04/04/19, no change. 05/22 EKG NOT c/w aflutter)
[2019-05-23 15:32] LABS: ALBUMIN 3.3 g/dl (3.4-5.0); ALK PHOS 61 U/L (45-117); ANION GAP 4 MMOL/L (8-16); BILIRUBIN,TOTAL 0.1 mg/dL (0.2-1); BLOOD UREA NITROGEN 13.7 mg/dL (7-18); CHLORIDE 106 mmol/L (98-107); CO2 27 mmol/L (21-32); GLUCOSE,RANDOM 109 mg/dL (74-106); SGOT/AST 15 U/L (15-37); SGPT/ALT 42 U/L (13-61); SODIUM 137 mmol/L (136-145); TOT PROT 6.2 g/dl (6.4-8.2)
[2019-05-23 17:54] VITALS: BP 125/75
--- NOTE | 2019-05-24 15:46 | EKG ---
Test Reason : Blood Pressure : / mmHG Vent. Rate : 088 BPM Atrial Rate : 088 BPM P-R Int : 118 ms QRS Dur : 100 ms QT Int : 362 ms P-R-T Axes : 026 007 049 degrees QTc Int : 438 ms NORMAL SINUS RHYTHM NONSPECIFIC T WAVE ABNORMALITY ABNORMAL ECG POOR DATA QUALITY, INTERPRETATION MAY BE ADVERSELY AFFECTED Confirmed by MIKAYLA TSAI MD ([id number]) on 05/24/2019 3:46:20 PM Referred By: Confirmed By:MIKAYLA TSAI MD
== END 2019-05-23 19:00 | disposition home or self-care (01) ==
LOC: JER 12:57
DX: R94.31 Abnormal electrocardiogram [ECG] [EKG] (principal); I10 Essential (primary) hypertension; F19.10 Other psychoactive substance abuse, uncomplicated
CPT/HCPCS: 36415; 71046-TC-FY; 80053; 82550; 84484; 85025; 93005; 93010; 99284-25

== ENCOUNTER 2019-12-21 11:32 | Inpatient (IN) | payer OTHER ==
--- NOTE | 2019-12-21 13:12 | BHS.RME ---
Substance Use & Tx History - Substance Use History Alcohol Substance amount: 1 pint Frequency of use: Daily Substance route: Oral Date of Last Use: 12/21/19 Cocaine-Crack Substance amount: 1 gram Frequency of use: Daily Substance route: Inhalation (ex: sniffing or snorting) Date of Last Use: 12/20/19 Marijuana/Hashish Substance amount: 1 joint Frequency of use: Daily Substance route: Smoking Date of Last Use: 12/20/19 - Last Treatment Date of last treatment: 08/01/19 Where was last treatment: Detox Physical/Psych/Mental Status - Behavior General Behavior: Increased activity (restlessness, agitation) Eye Contact: Normal Other Behaviors: Mannerisms - Cooperativeness Cooperativeness: Cooperative - Thinking Thought Processes: Logical Thought content: Future oriented - Physical Health Problems Is patient presently having any pain?: Yes Does patient presently have any injuries (include location): No Does patient currently have a fever: No CIWA Nausea/Vomitin Muscle Tremors: 2 Anxiety: 1-Mildly Anxious Agitation: 1-Slight > Activity Paroxysmal Sweats: 2 Orientation: 0-Oriented Tacttile Disturbances: 0-None Auditory Disturbances: 1-Very Mild Visual Disturbances: 2-Mild Sensitivity Headache: 2-Mild CIWA-Ar Total Score: 13
--- NOTE | 2019-12-21 13:20 | HP ---
CIWA Score Nausea/Vomitin Muscle Tremors: 2 Anxiety: 1-Mildly Anxious Agitation: 1-Slight > Activity Paroxysmal Sweats: 2 Orientation: 0-Oriented Tacttile Disturbances: 0-None Auditory Disturbances: 1-Very Mild Visual Disturbances: 2-Mild Sensitivity Headache: 2-Mild CIWA-Ar Total Score: 13 - Admission Criteria OASAS Guidelines: Admission for Medically Managed Detox: Requires at least one of the followin. CIWA greater than 12 2. Seizures within the past 24 hours 3. Delirium tremens within the past 24 hours 4. Hallucinations within the past 24 hours 5. Acute intervention needed for co occurring medical disorder 6. Acute intervention needed for co occurring psychiatric disorder 7. Severe withdrawal that cannot be handled at a lower level of care (continued vomiting, continued diarrhea, abnormal vital signs) requiring intravenous medication and/or fluids 8. 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 His last treatment was on 08/01/2019. He denies seizures but reports blackouts from drinking. Exam Limitations: No Limitations - Ebola screening Have you traveled outside of the country in the last 21 days: No Have you had contact with anyone from an Ebola affected area: No Have you been sick,other than usual withdrawal symptoms: No Do you have a fever: No - Review of Systems Constitutional: Chills, Loss of Appetite, Changes in sleep, Unintentional Wgt. Loss EENT: reports: Nose Congestion Respiratory: reports: No Symptoms reported Cardiac: reports: No Symptoms Reported GI: reports: Nausea, Poor Appetite, Indigestion, Abdominal cramping : reports: No Symptoms Reported Musculoskeletal: reports: Joint Pain, Muscle Pain, Muscle Weakness Integumentary: reports: Sweating Neuro: reports: Headache, Numbness, Tremors, Weakness Endocrine: reports: No Symptoms Reported Hematology: reports: No Symptoms Reported Psychiatric: reports: Anxious Other Systems: Reviewed and Negative Patient History - Patient Medical History Hx Anemia: No Hx Asthma: No Hx Chronic Obstructive Pulmonary Disease (COPD): No Hx Cancer: No Hx Cardiac Disorders: No Hx Congestive Heart Failure: No Hx Hypertension: Yes Hx Hypercholesterolemia: No Hx Pacemaker: No HX Cerebrovascular Accident: No Hx Seizures: No Hx Dementia: No Hx Diabetes: No Hx Gastrointestinal Disorders: No Hx Liver Disease: No Hx Genitourinary Disorders: No Hx Sexually Transmitted Disorders: No Hx Renal Disease (ESRD): No Hx Thyroid Disease: No Hx Human Immunodeficiency Virus (HIV): No Hx Hepatitis C: No Hx Depression: No Hx Suicide Attempt: No Hx Bipolar Disorder: No Hx Schizophrenia: No - Patient Surgical History Past Surgical History: No Hx Neurologic Surgery: No Hx Cataract Extraction: No Hx Cardiac Surgery: No Hx Lung Surgery: No Hx Breast Surgery: No Hx Breast Biopsy: No Hx Abdominal Surgery: Yes ( 2012) Hx Appendectomy: No Hx Cholecystectomy: Yes (laparoscopy in 2012) Hx Genitourinary Surgery: No Hx Section: No Hx Orthopedic Surgery: No Anesthesia Reaction: No - PPD History Previous Implant?: Yes Documented Results: Negative w/proof Implanted On Prior [facility] Admission?: Yes Date: 09/24/18 Results: 0mm PPD to be Administered?: Yes - Smoking Cessation Smoking history: Current every day smoker Have you smoked in the past 12 months: Yes Aproximately how many cigarettes per day: 10 Cigars Per Day: 0 Hx Chewing Tobacco Use: No Initiated information on smoking cessation: No Admission Physical Exam BHS - Physical General Appearance: Yes: No Apparent Distress HEENTM: Yes: Hearing grossly Normal, Normocephalic, Normal Voice, Pharynx Normal Respiratory: Yes: Chest Non-Tender, Lungs Clear, Normal Breath Sounds, No Respiratory Distress, No Accessory Muscle Use Neck: Yes: No masses,lesions,Nodules, Supple Breast: Yes: Breast Exam Deferred Cardiology: Yes: Regular Rhythm, Regular Rate, S1, S2 Abdominal: Yes: Normal Bowel Sounds, Non Tender, Soft Genitourinary: Yes: Within Normal Limits Back: Yes: Normal Inspection Musculoskeletal: Yes: full range of Motion, Gait Steady, Pelvis Stable, Muscle Pain, Muscle weakness Extremities: Yes: Non-Tender, Tremors 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 NML intact, Fully Oriented, Alert, Motor Strength 5/5, Normal Mood/Affect, Normal Response Integumentary: Yes: Cold Lymphatic: Yes: Within Normal Limits - Diagnostic (1) Nicotine dependence Current Visit: Yes Status: Acute Qualifiers: Nicotine product type: cigarettes Substance use status: uncomplicated Qualified Code(s): F17.210 - Nicotine dependence, cigarettes, uncomplicated (2) Alcohol dependence with uncomplicated withdrawal Current Visit: Yes Status: Acute (3) Cannabis dependence, uncomplicated Current Visit: Yes Status: Chronic (4) Cocaine dependence, uncomplicated Current Visit: Yes Status: Chronic Cleared for Admission S - Detox or Rehab [facility] Level of Care: Medically Managed Detox Regimen/Protocol: Librium Claeared for Rehab Admission: No Breathalyzer - Breathalyzer Breathalyzer: 0.012 Urine Drug Screen - Test Device Lot number: [id number] Expiration date: 07/23/21 - Control Is test valid?: Yes - Results Drug screen NEGATIVE: No Urine drug screen results: THC-Marijuana, ALAN-Cocaine Inpatient Rehab Admission - Rehab Decision to Admit Inpatient rehab admission?: No
[2019-12-21 13:22] VITALS: BMI 28.5
[2019-12-21] MEDS ORDERED: MAGNESIUM HYDROX 2400MG/30ML ORAL SUSPENSION 30 ML CUP PO PRN (13:26)
[2019-12-21] MEDS ORDERED: MAG HYDROX/AL HYDROX/SIMETH 30 ML UNIT-DOSE CUP PO PRN (13:26)
[2019-12-21] MEDS ORDERED: IBUPROFEN 400 MG TABLET (FP) PO PRN (13:26)
[2019-12-21] MEDS ORDERED: METHOCARBAMOL 500 MG TABLET PO PRN (13:26)
[2019-12-21] MEDS ORDERED: NICOTINE POLACRILEX 2 MG GUM BUC PRN (13:26)
[2019-12-21] MEDS ORDERED: ONDANSETRON *ODT* 4 MG TABLET SL ONE (13:26)
[2019-12-21] MEDS ORDERED: BISMUTH SUBSALICYLATE 524 MG/30 ML UD PO PRN (13:26)
[2019-12-21] MEDS ORDERED: chlordiazePOXIDE HCL 10 MG CAPSULE PO PRN (13:26)
[2019-12-21] MEDS ORDERED: chlordiazePOXIDE HCL 25 MG CAPSULE PO ONE (13:26)
[2019-12-21] MEDS ORDERED: MAGNESIUM CITRATE 300 ML BOTTLE PO PRN (13:26)
[2019-12-21] MEDS ORDERED: MENTHOL/PHENOL 1 EACH UD MM PRN (13:26)
[2019-12-21] MEDS ORDERED: ACETAMINOPHEN 325 MG TABLET (FP) PO PRN ×2 (13:26)
[2019-12-21] MEDS: hydrOXYzine PAMOATE 25 MG CAPSULE (FP) PO SCH ×3 (14:23→22:55)
[2019-12-21] MEDS: THIAMINE HCL 100 MG TABLET (FP) PO SCH (22:55)
[2019-12-21] MEDS: chlordiazePOXIDE HCL 25 MG CAPSULE PO SCH (22:55)
[2019-12-21] MEDS: MELATONIN 5 MG TABLETS PO SCH (22:56)
[2019-12-22] MEDS: chlordiazePOXIDE HCL 25 MG CAPSULE PO SCH ×3 (05:39→23:26)
[2019-12-22] MEDS: hydrOXYzine PAMOATE 25 MG CAPSULE (FP) PO SCH ×5 (05:39→23:26)
[2019-12-22] MEDS: PRENATAL VITAMINS W/ FOLIC ACID TABLET (FP) PO SCH (10:22)
[2019-12-22 11:12] LABS: ALBUMIN 3.3 g/dl (3.4-5.0); BILIRUBIN,TOTAL 0.3 mg/dL (0.2-1); BLOOD UREA NITROGEN 10.1 mg/dL (7-18); CALCIUM 8.7 mg/dL (8.5-10.1); CREATININE 1.1 mg/dL (0.55-1.3); POTASSIUM 4.1 mmol/L (3.5-5.1); TOT PROT 6.1 g/dl (6.4-8.2)
--- NOTE | 2019-12-22 11:27 | PN ---
[facility] CIWA - CIWA Score Nausea/Vomitin-Mild Nausea/No Vomiting Muscle Tremors: 3 Anxiety: 3 Agitation: 2 Paroxysmal Sweats: 3 Orientation: 0-Oriented Tacttile Disturbances: 0-None Auditory Disturbances: 0-None Visual Disturbances: 0-None Headache: 0-None Present CIWA-Ar Total Score: 12 S Progress Note (SOAP) Subjective: Complaints of mild nausea, tremors, agitation, sweats, and anxiety. Objective: 12/22/19 11:26 Vital Signs 12/22/19 12/22/19 12/22/19 05:31 07:26 09:16 Temperature 97.4 F L 97.8 F Pulse Rate 74 71 81 Respiratory 16 18 Rate Blood Pressure 147/106 H 134/81 132/76 O2 Sat by Pulse 99 Oximetry (%) Laboratory Last Values Sodium 140 mmol/L (136-145) 12/22/19 07:20 Potassium 4.1 mmol/L (3.5-5.1) 12/22/19 07:20 Chloride 107 mmol/L (98-107) 12/22/19 07:20 Carbon Dioxide 28 mmol/L (21-32) 12/22/19 07:20 Anion Gap 5 MMOL/L (8-16) L 12/22/19 07:20 BUN 10.1 mg/dL (7-18) 12/22/19 07:20 Creatinine 1.1 mg/dL (0.55-1.3) 12/22/19 07:20 Est GFR (CKD-EPI)AfAm 95.46 12/22/19 07:20 Est GFR (CKD-EPI)NonAf 82.36 12/22/19 07:20 Random Glucose 87 mg/dL (74-106) 12/22/19 07:20 Calcium 8.7 mg/dL (8.5-10.1) 12/22/19 07:20 Total Bilirubin 0.3 mg/dL (0.2-1) 12/22/19 07:20 AST 7 U/L (15-37) L 12/22/19 07:20 ALT 16 U/L (13-61) 12/22/19 07:20 Alkaline Phosphatase 52 U/L (45-117) 12/22/19 07:20 Total Protein 6.1 g/dl (6.4-8.2) L 12/22/19 07:20 Albumin 3.3 g/dl (3.4-5.0) L 12/22/19 07:20 Labs noted. Assessment: 12/22/19 11:26 Alert and oriented x 3, in no acute respiratory distress. Full ROM, ambulatory in unit without any assistance. Skin warm to touch without any lesions. Withdrawal symptoms. Plan: Continue detox protocol.
[2019-12-22 11:38] LABS: HEMATOCRIT 47.5 % (35.4-49); HEMOGLOBIN 15.9 GM/dL (11.7-16.9); MCH 29.4 pg (25.7-33.7); MCHC 33.4 g/dl (32.0-35.9); MEAN PLT VOLUME 10.1 fl (7.5-11.1); PLATELET COUNT 206 K/MM3 (134-434); RDW 13.3 % (11.9-15.9); WHITE BLOOD COUNT 6.5 K/mm3 (4.0-10.0)
[2019-12-22] MEDS: MELATONIN 5 MG TABLETS PO SCH (23:26)
[2019-12-22] MEDS: THIAMINE HCL 100 MG TABLET (FP) PO SCH (23:27)
[2019-12-23] MEDS: chlordiazePOXIDE 5 MG CAPSULE PO SCH ×3 (05:09→22:27)
[2019-12-23] MEDS: hydrOXYzine PAMOATE 25 MG CAPSULE (FP) PO SCH ×5 (05:09→22:27)
[2019-12-23] MEDS: PRENATAL VITAMINS W/ FOLIC ACID TABLET (FP) PO SCH (10:37)
--- NOTE | 2019-12-23 11:21 | PN ---
[facility] CIWA - CIWA Score Nausea/Vomitin-No Nausea/No Vomiting Muscle Tremors: None Anxiety: 3 Agitation: 2 Paroxysmal Sweats: 3 Orientation: 0-Oriented Tacttile Disturbances: 0-None Auditory Disturbances: 0-None Visual Disturbances: 0-None Headache: 2-Mild CIWA-Ar Total Score: 10 S Progress Note (SOAP) Subjective: c/o sweats, anxiety, and headache. Objective: 12/23/19 11:20 Vital Signs 12/23/19 12/23/19 05:36 08:46 Temperature 97.8 F 98.1 F Pulse Rate 72 91 H Respiratory 18 16 Rate Blood Pressure 125/66 109/88 O2 Sat by Pulse 97 Oximetry (%) Laboratory Last Values WBC 6.5 K/mm3 (4.0-10.0) 12/22/19 07:30 RBC 5.40 M/mm3 (4.00-5.60) 12/22/19 07:30 Hgb 15.9 GM/dL (11.7-16.9) 12/22/19 07:30 Hct 47.5 % (35.4-49) 12/22/19 07:30 MCV 88.0 fl (80-96) 12/22/19 07:30 MCH 29.4 pg (25.7-33.7) 12/22/19 07:30 MCHC 33.4 g/dl (32.0-35.9) 12/22/19 07:30 RDW 13.3 % (11.9-15.9) 12/22/19 07:30 Plt Count 206 K/MM3 (134-434) 12/22/19 07:30 MPV 10.1 fl (7.5-11.1) 12/22/19 07:30 Sodium 140 mmol/L (136-145) 12/22/19 07:20 Potassium 4.1 mmol/L (3.5-5.1) 12/22/19 07:20 Chloride 107 mmol/L (98-107) 12/22/19 07:20 Carbon Dioxide 28 mmol/L (21-32) 12/22/19 07:20 Anion Gap 5 MMOL/L (8-16) L 12/22/19 07:20 BUN 10.1 mg/dL (7-18) 12/22/19 07:20 Creatinine 1.1 mg/dL (0.55-1.3) 12/22/19 07:20 Est GFR (CKD-EPI)AfAm 95.46 12/22/19 07:20 Est GFR (CKD-EPI)NonAf 82.36 12/22/19 07:20 Random Glucose 87 mg/dL (74-106) 12/22/19 07:20 Calcium 8.7 mg/dL (8.5-10.1) 12/22/19 07:20 Total Bilirubin 0.3 mg/dL (0.2-1) 12/22/19 07:20 AST 7 U/L (15-37) L 12/22/19 07:20 ALT 16 U/L (13-61) 12/22/19 07:20 Alkaline Phosphatase 52 U/L (45-117) 12/22/19 07:20 Total Protein 6.1 g/dl (6.4-8.2) L 12/22/19 07:20 Albumin 3.3 g/dl (3.4-5.0) L 12/22/19 07:20 Syphilis Serology Non-reactive (NONREACTIVE) 12/22/19 07:20 COVID-19 (STEF) Not detected (Not Detected) 12/21/19 13:41 Labs noted. Assessment: 12/23/19 11:21 AOX3, in no acute respiratory distress. Full ROM, ambulating in the unit. Withdrawal symptoms. Plan: continue detox.
[2019-12-23] MEDS: MELATONIN 5 MG TABLETS PO SCH (22:27)
[2019-12-23] MEDS: THIAMINE HCL 100 MG TABLET (FP) PO SCH (22:28)
[2019-12-24] MEDS ORDERED: chlordiazePOXIDE HCL 10 MG CAPSULE PO PRN
[2019-12-24] MEDS ORDERED: chlordiazePOXIDE HCL 10 MG CAPSULE PO SCH (05:00)
[2019-12-24] MEDS: hydrOXYzine PAMOATE 25 MG CAPSULE (FP) PO SCH (06:40)
[2019-12-24 09:48] VITALS: BP 130/69; PULSE 88; TEMP 98.9
--- NOTE | 2019-12-24 09:55 | PN ---
S CIWA - CIWA Score Nausea/Vomitin-No Nausea/No Vomiting Muscle Tremors: 1-None Visible, but [place] Anxiety: 1-Mildly Anxious Agitation: 1-Slight > Activity Paroxysmal Sweats: No Perspiration Orientation: 0-Oriented Tacttile Disturbances: 0-None Auditory Disturbances: 0-None Visual Disturbances: 0-None Headache: 0-None Present CIWA-Ar Total Score: 3 BHS Progress Note (SOAP) Subjective: I am feeling so much better, no withdrawals Objective: 12/24/19 09:55 Vital Signs Temperature 98.9 F 12/24/19 08:37 Pulse Rate 88 12/24/19 08:37 Respiratory Rate 19 12/24/19 08:37 Blood Pressure 130/69 12/24/19 08:37 O2 Sat by Pulse Oximetry (%) 97 12/24/19 08:37 aaox3 ambulating no acute distress Assessment: 12/24/19 09:55 no s/s of withdrawals noted Plan: d/c today
--- NOTE | 2019-12-24 09:57 | DS ---
[facility] Detox Discharge Summary Admission Date: 12/21/19 - History Present History: Alcohol Dependence, Cannabis Dependence, Cocaine Dependence, Sedative Dependence, Pcp Dependence - Physical Exam Results Vital Signs: Vital Signs Temperature 98.9 F 12/24/19 08:37 Pulse Rate 88 12/24/19 08:37 Respiratory Rate 12/24/19 08:37 Blood Pressure 130/69 12/24/19 08:37 O2 Sat by Pulse Oximetry (%) 97 12/24/19 08:37 Pertinent Admission Physical Exam Findings: Vital Signs Temperature 98.9 F 12/24/19 08:37 Pulse Rate 88 12/24/19 08:37 Respiratory Rate 12/24/19 08:37 Blood Pressure 130/69 12/24/19 08:37 O2 Sat by Pulse Oximetry (%) 97 12/24/19 08:37 Laboratory Tests 12/21/19 12/22/19 12/22/19 13:41 07:20 07:20 WBC RBC Hgb Hct MCV MCH MCHC RDW Plt Count MPV Sodium 140 Potassium 4.1 Chloride 107 Carbon Dioxide 28 Anion Gap 5 L BUN 10.1 Creatinine 1.1 Est GFR (CKD-EPI)AfAm 95.46 Est GFR (CKD-EPI)NonAf 82.36 Random Glucose 87 Calcium 8.7 Total Bilirubin 0.3 AST 7 L ALT 16 Alkaline Phosphatase 52 Total Protein 6.1 L Albumin 3.3 L Syphilis Serology Non-reactive COVID-19 (STEF) Not detected 12/22/19 07:30 WBC 6.5 RBC 5.40 Hgb 15.9 Hct 47.5 MCV 88.0 MCH 29.4 MCHC 33.4 RDW 13.3 Plt Count 206 MPV 10.1 Sodium Potassium Chloride Carbon Dioxide Anion Gap BUN Creatinine Est GFR (CKD-EPI)AfAm Est GFR (CKD-EPI)NonAf Random Glucose Calcium Total Bilirubin AST ALT Alkaline Phosphatase Total Protein Albumin Syphilis Serology COVID-19 (STEF) aaox3 ambulating no acute distress lungs CTA - Treatment Hospital Course: Detox Protocol Followed, Detoxed Safely, Responded well, Discharged Condition Good, Rehab Referral Accepted - Medication Discharge Medications: Ambulatory Orders NK [No Known Home Medication] 12/21/19 - Diagnosis (1) Alcohol dependence with uncomplicated withdrawal Current Visit: Yes Status: Chronic (2) Nicotine dependence Current Visit: Yes Status: Chronic Qualifiers: Nicotine product type: cigarettes Substance use status: uncomplicated Qualified Code(s): F17.210 - Nicotine dependence, cigarettes, uncomplicated (3) Cannabis dependence, uncomplicated Current Visit: Yes Status: Chronic (4) Cocaine dependence, uncomplicated Current Visit: Yes Status: Chronic (5) Abnormal EKG Current Visit: No Status: Acute (6) Opioid abuse Current Visit: No Status: Acute (7) Hypertension Current Visit: No Status: Chronic Qualifiers: Hypertension type: essential hypertension Qualified Code(s): I10 - Essential (primary) hypertension (8) PCP dependence Current Visit: No Status: Chronic (9) Sedative, hypnotic or anxiolytic dependence, uncomplicated Current Visit: No Status: Chronic (10) Substance induced mood disorder Current Visit: No Status: Suspected (11) History of atrial flutter Current Visit: No Status: Resolved - AMA Did Patient Leave Against Medical Advice: No
[2019-12-25] MEDS ORDERED: chlordiazePOXIDE HCL 10 MG CAPSULE PO ONE (05:00)
== END 2019-12-24 09:45 | disposition home or self-care (01) | DRG 773 ==
LOC: YASAS 11:32 → Y6N 13:37
PROVIDERS: ADMIT Allergy & Immunology; ATTEND Allergy & Immunology
PROC: HZ2ZZZZ Detoxification Services for Substance Abuse Treatment (ICD-10-PCS; principal; 2019-12-21)
DX: F10.230 Alcohol dependence with withdrawal, uncomplicated (principal); F11.10 Opioid abuse, uncomplicated; F14.20 Cocaine dependence, uncomplicated; F12.20 Cannabis dependence, uncomplicated; F13.20 Sedative, hypnotic or anxiolytic dependence, uncomplicated; F17.210 Nicotine dependence, cigarettes, uncomplicated; F19.24 Other psychoactive substance dependence with psychoactive substance-induced mood disorder; I10 Essential (primary) hypertension; Z86.79 Personal history of other diseases of the circulatory system; R94.31 Abnormal electrocardiogram [ECG] [EKG]; Z90.49 Acquired absence of other specified parts of digestive tract; Z91.010 Allergy to peanuts
CPT/HCPCS: 36415; 80053; 85027; 86780; U0003

== ENCOUNTER 2020-03-24 08:21 | Inpatient (IN) | payer OTHER ==
[2020-03-24 09:26] VITALS: BMI 29.6
[2020-03-24] MEDS ORDERED: METHOCARBAMOL 500 MG TABLET PO PRN (10:38)
[2020-03-24] MEDS ORDERED: NICOTINE POLACRILEX 2 MG GUM BUC PRN (10:38)
[2020-03-24] MEDS ORDERED: BISMUTH SUBSALICYLATE 262 MG/15 ML BTL PO PRN (10:38)
[2020-03-24] MEDS ORDERED: MENTHOL/PHENOL 1 EACH UD MM PRN (10:38)
[2020-03-24] MEDS ORDERED: cloNIDine HCL 0.1 MG TABLET PO PRN (10:38)
[2020-03-24] MEDS ORDERED: MAGNESIUM HYDROX 2400MG/30ML ORAL SUSPENSION 30 ML CUP PO PRN (10:38)
[2020-03-24] MEDS ORDERED: ACETAMINOPHEN 325 MG TABLET (FP) PO PRN ×2 (10:38)
[2020-03-24] MEDS ORDERED: MAGNESIUM CITRATE 300 ML BOTTLE PO PRN (10:38)
[2020-03-24] MEDS ORDERED: ONDANSETRON *ODT* 4 MG TABLET SL PRN (10:38)
[2020-03-24] MEDS ORDERED: METHADONE HCL 10 MG TABLET (FOR DETOX USE ONLY) PO ONE (10:38)
[2020-03-24] MEDS ORDERED: MAG HYDROX/AL HYDROX/SIMETH 30 ML UNIT-DOSE CUP PO PRN (10:38)
[2020-03-24] MEDS ORDERED: IBUPROFEN 400 MG TABLET (FP) PO PRN (10:38)
[2020-03-24] MEDS: NICOTINE 21 MG/24 HOURS TOPICAL PATCH TD SCH (11:22)
[2020-03-24] MEDS: hydrOXYzine PAMOATE 25 MG CAPSULE (FP) PO SCH ×3 (13:11→22:45)
[2020-03-24 14:41] LABS: CALCIUM 9.3 mg/dL (8.5-10.1); HEMATOCRIT 47.8 % (35.4-49); HEMOGLOBIN 15.7 GM/dL (11.7-16.9); MCH 29.4 pg (25.7-33.7); MCHC 32.8 g/dl (32.0-35.9); MEAN CELL VOLUME 89.8 fl (80-96); MEAN PLT VOLUME 9.4 fl (7.5-11.1); PLATELET COUNT 354 K/MM3 (134-434); RBC 5.33 M/mm3 (4.00-5.60); RDW 13.3 % (11.9-15.9); WHITE BLOOD COUNT 5.4 K/mm3 (4.0-10.0)
[2020-03-24 14:42] LABS: ALBUMIN 3.9 g/dl (3.4-5.0); BLOOD UREA NITROGEN 12.5 mg/dL (7-18)
[2020-03-24 14:46] LABS: BILIRUBIN,TOTAL 0.5 mg/dL (0.2-1); TOT PROT 6.9 g/dl (6.4-8.2)
[2020-03-24] MEDS: MELATONIN 5 MG TABLETS PO SCH (22:45)
[2020-03-24] MEDS: THIAMINE HCL 100 MG TABLET (FP) PO SCH (22:45)
[2020-03-25] MEDS: hydrOXYzine PAMOATE 25 MG CAPSULE (FP) PO SCH ×5 (06:40→22:22)
[2020-03-25] MEDS ORDERED: METHADONE HCL 10 MG TABLET (FOR DETOX USE ONLY) ONE (08:30)
[2020-03-25] MEDS ORDERED: METHADONE HCL 5 MG TABLET (FOR DETOX USE ONLY) ONE (08:30)
[2020-03-25] MEDS ORDERED: METHADONE (DETOX) 20 MG, METHADONE (DETOX) 5 MG PO ONE (10:00)
[2020-03-25] MEDS: PRENATAL VITAMINS W/ FOLIC ACID TABLET (FP) PO SCH (10:15)
[2020-03-25] MEDS: NICOTINE 21 MG/24 HOURS TOPICAL PATCH TD SCH (10:16)
[2020-03-25] MEDS: THIAMINE HCL 100 MG TABLET (FP) PO SCH (22:22)
[2020-03-25] MEDS: MELATONIN 5 MG TABLETS PO SCH (22:22)
[2020-03-26] MEDS: hydrOXYzine PAMOATE 25 MG CAPSULE (FP) PO SCH ×5 (07:39→22:50)
[2020-03-26] MEDS: PRENATAL VITAMINS W/ FOLIC ACID TABLET (FP) PO SCH (09:14)
[2020-03-26] MEDS: NICOTINE 21 MG/24 HOURS TOPICAL PATCH TD SCH (09:16)
[2020-03-26] MEDS ORDERED: METHADONE HCL 10 MG TABLET (FOR DETOX USE ONLY) PO ONE (10:00)
[2020-03-26] MEDS ORDERED: diazePAM 5 MG TABLET PO PRN (14:35)
[2020-03-26] MEDS: MELATONIN 5 MG TABLETS PO SCH (22:49)
[2020-03-26] MEDS: THIAMINE HCL 100 MG TABLET (FP) PO SCH (22:50)
[2020-03-27] MEDS: hydrOXYzine PAMOATE 25 MG CAPSULE (FP) PO SCH ×5 (07:29→23:28)
[2020-03-27] MEDS ORDERED: METHADONE HCL 10 MG TABLET (FOR DETOX USE ONLY) ONE (09:48)
[2020-03-27] MEDS ORDERED: METHADONE HCL 5 MG TABLET (FOR DETOX USE ONLY) ONE (09:48)
[2020-03-27] MEDS ORDERED: METHADONE (DETOX) 10 MG, METHADONE (DETOX) 5 MG PO ONE (10:00)
[2020-03-27] MEDS: PRENATAL VITAMINS W/ FOLIC ACID TABLET (FP) PO SCH (10:28)
[2020-03-27] MEDS: NICOTINE 21 MG/24 HOURS TOPICAL PATCH TD SCH (10:28)
[2020-03-27] MEDS: MELATONIN 5 MG TABLETS PO SCH (23:28)
[2020-03-27] MEDS: THIAMINE HCL 100 MG TABLET (FP) PO SCH (23:29)
[2020-03-28] MEDS: hydrOXYzine PAMOATE 25 MG CAPSULE (FP) PO SCH ×5 (06:35→22:40)
[2020-03-28] MEDS ORDERED: METHADONE HCL 10 MG TABLET (FOR DETOX USE ONLY) PO ONE (10:00)
[2020-03-28] MEDS: PRENATAL VITAMINS W/ FOLIC ACID TABLET (FP) PO SCH (10:20)
[2020-03-28] MEDS: NICOTINE 21 MG/24 HOURS TOPICAL PATCH TD SCH (10:21)
[2020-03-28] MEDS: MELATONIN 5 MG TABLETS PO SCH (22:40)
[2020-03-28] MEDS: THIAMINE HCL 100 MG TABLET (FP) PO SCH (22:40)
[2020-03-29] MEDS: hydrOXYzine PAMOATE 25 MG CAPSULE (FP) PO SCH (05:27)
[2020-03-29] MEDS ORDERED: METHADONE HCL 5 MG TABLET (FOR DETOX USE ONLY) PO ONE (06:00)
[2020-03-29 06:12] VITALS: BP 121/79; PULSE 70; TEMP 97.3
== END 2020-03-29 09:10 | disposition home or self-care (01) | DRG 773 ==
LOC: YASAS 08:21 → Y3N 09:58
PROVIDERS: ADMIT Allergy & Immunology; ATTEND Allergy & Immunology
PROC: HZ2ZZZZ Detoxification Services for Substance Abuse Treatment (ICD-10-PCS; principal; 2020-03-24)
DX: F11.23 Opioid dependence with withdrawal (principal); F10.10 Alcohol abuse, uncomplicated; F17.213 Nicotine dependence, cigarettes, with withdrawal; F19.24 Other psychoactive substance dependence with psychoactive substance-induced mood disorder; I49.1 Atrial premature depolarization; Z91.010 Allergy to peanuts
CPT/HCPCS: 36415; 80053; 85027; 86780; 93005; 93010; C9803; U0003

== ENCOUNTER 2020-04-28 08:41 | Inpatient (IN) | payer OTHER ==
[2020-04-28 10:06] VITALS: BMI 29.0
[2020-04-28] MEDS ORDERED: ONDANSETRON *ODT* 4 MG TABLET SL PRN (10:53)
[2020-04-28] MEDS ORDERED: METHADONE HCL 10 MG TABLET (FOR DETOX USE ONLY) PO ONE (10:53)
[2020-04-28] MEDS ORDERED: NICOTINE POLACRILEX 2 MG GUM BUC PRN (10:53)
[2020-04-28] MEDS ORDERED: MENTHOL/PHENOL 1 EACH UD MM PRN (10:53)
[2020-04-28] MEDS ORDERED: cloNIDine HCL 0.1 MG TABLET PO PRN (10:53)
[2020-04-28] MEDS ORDERED: ACETAMINOPHEN 325 MG TABLET (FP) PO PRN ×2 (10:53)
[2020-04-28] MEDS ORDERED: IBUPROFEN 400 MG TABLET (FP) PO PRN (10:53)
[2020-04-28] MEDS ORDERED: MAGNESIUM HYDROX 2400MG/30ML ORAL SUSPENSION 30 ML CUP PO PRN (10:53)
[2020-04-28] MEDS ORDERED: BISMUTH SUBSALICYLATE 262 MG/15 ML BTL PO PRN (10:53)
[2020-04-28] MEDS ORDERED: MAGNESIUM CITRATE 300 ML BOTTLE PO PRN (10:53)
[2020-04-28] MEDS ORDERED: MAG HYDROX/AL HYDROX/SIMETH 30 ML UNIT-DOSE CUP PO PRN (10:53)
[2020-04-28] MEDS ORDERED: METHOCARBAMOL 500 MG TABLET PO PRN (10:53)
[2020-04-28] MEDS: NICOTINE 21 MG/24 HOURS TOPICAL PATCH TD SCH (11:16)
[2020-04-28 12:58] LABS: HEMATOCRIT 47.7 % (35.4-49); HEMOGLOBIN 16.1 GM/dL (11.7-16.9); MCH 30.5 pg (25.7-33.7); MCHC 33.8 g/dl (32.0-35.9); MEAN CELL VOLUME 90.3 fl (80-96); MEAN PLT VOLUME 9.9 fl (7.5-11.1); PLATELET COUNT 256 K/MM3 (134-434); RBC 5.28 M/mm3 (4.00-5.60); RDW 13.6 % (11.9-15.9); WHITE BLOOD COUNT 6.9 K/mm3 (4.0-10.0)
[2020-04-28 13:00] LABS: POTASSIUM 4.1 mmol/L (3.5-5.1)
[2020-04-28 13:06] LABS: BLOOD UREA NITROGEN 12.8 mg/dL (7-18)
[2020-04-28 13:07] LABS: CALCIUM 9.2 mg/dL (8.5-10.1)
[2020-04-28 13:12] LABS: BILIRUBIN,TOTAL 0.4 mg/dL (0.2-1)
[2020-04-28 13:13] LABS: TOT PROT 7.3 g/dl (6.4-8.2)
[2020-04-28 14:02] LABS: HIV INTERPRETATION NEGATIVE (NEGATIVE)
[2020-04-28] MEDS: hydrOXYzine PAMOATE 25 MG CAPSULE (FP) PO SCH ×3 (14:47→22:24)
[2020-04-28] MEDS: THIAMINE HCL 100 MG TABLET (FP) PO SCH (22:24)
[2020-04-28] MEDS: MELATONIN 5 MG TABLETS PO SCH (22:24)
[2020-04-29] MEDS: hydrOXYzine PAMOATE 25 MG CAPSULE (FP) PO SCH ×5 (05:12→22:24)
[2020-04-29] MEDS ORDERED: METHADONE HCL 5 MG TABLET (FOR DETOX USE ONLY) ONE (08:46)
[2020-04-29] MEDS ORDERED: METHADONE HCL 10 MG TABLET (FOR DETOX USE ONLY) ONE (08:47)
[2020-04-29] MEDS ORDERED: cloNIDine HCL 0.1 MG TABLET PO PRN (09:33)
[2020-04-29] MEDS ORDERED: METHADONE (DETOX) 20 MG, METHADONE (DETOX) 5 MG PO ONE (10:00)
[2020-04-29] MEDS: NICOTINE 21 MG/24 HOURS TOPICAL PATCH TD SCH (10:29)
[2020-04-29] MEDS: PRENATAL VITAMINS W/ FOLIC ACID TABLET (FP) PO SCH (10:29)
[2020-04-29] MEDS: MELATONIN 5 MG TABLETS PO SCH (22:24)
[2020-04-29] MEDS: THIAMINE HCL 100 MG TABLET (FP) PO SCH (22:24)
[2020-04-30] MEDS: hydrOXYzine PAMOATE 25 MG CAPSULE (FP) PO SCH ×5 (06:04→22:05)
[2020-04-30] MEDS ORDERED: METHADONE HCL 10 MG TABLET (FOR DETOX USE ONLY) PO ONE (10:00)
[2020-04-30] MEDS: NICOTINE 21 MG/24 HOURS TOPICAL PATCH TD SCH (10:19)
[2020-04-30] MEDS: PRENATAL VITAMINS W/ FOLIC ACID TABLET (FP) PO SCH (10:19)
[2020-04-30] MEDS ORDERED: FLU VACCINE (FLULAVAL) PF 60 MCG/0.5 ML SYRINGE 2020-2021 IM ONE (12:00)
[2020-04-30] MEDS: THIAMINE HCL 100 MG TABLET (FP) PO SCH (22:05)
[2020-04-30] MEDS: MELATONIN 5 MG TABLETS PO SCH (22:05)
[2020-05-01] MEDS: hydrOXYzine PAMOATE 25 MG CAPSULE (FP) PO SCH ×5 (05:56→23:00)
[2020-05-01] MEDS ORDERED: METHADONE HCL 5 MG TABLET (FOR DETOX USE ONLY) ONE (08:45)
[2020-05-01] MEDS ORDERED: METHADONE HCL 10 MG TABLET (FOR DETOX USE ONLY) ONE (08:46)
[2020-05-01] MEDS ORDERED: METHADONE (DETOX) 10 MG, METHADONE (DETOX) 5 MG PO ONE (10:00)
[2020-05-01] MEDS: PRENATAL VITAMINS W/ FOLIC ACID TABLET (FP) PO SCH (10:14)
[2020-05-01] MEDS: NICOTINE 21 MG/24 HOURS TOPICAL PATCH TD SCH (10:14)
[2020-05-01] MEDS: THIAMINE HCL 100 MG TABLET (FP) PO SCH (23:00)
[2020-05-01] MEDS: MELATONIN 5 MG TABLETS PO SCH (23:00)
[2020-05-02] MEDS: hydrOXYzine PAMOATE 25 MG CAPSULE (FP) PO SCH ×5 (07:10→23:21)
[2020-05-02] MEDS ORDERED: METHADONE HCL 10 MG TABLET (FOR DETOX USE ONLY) PO ONE (10:00)
[2020-05-02] MEDS: PRENATAL VITAMINS W/ FOLIC ACID TABLET (FP) PO SCH (10:28)
[2020-05-02] MEDS: NICOTINE 21 MG/24 HOURS TOPICAL PATCH TD SCH (10:28)
[2020-05-02] MEDS: MELATONIN 5 MG TABLETS PO SCH (23:21)
[2020-05-02] MEDS: THIAMINE HCL 100 MG TABLET (FP) PO SCH (23:21)
[2020-05-03] MEDS ORDERED: METHADONE HCL 5 MG TABLET (FOR DETOX USE ONLY) PO ONE (06:00)
[2020-05-03] MEDS: hydrOXYzine PAMOATE 25 MG CAPSULE (FP) PO SCH ×2 (07:11→10:55)
[2020-05-03] MEDS: NICOTINE 21 MG/24 HOURS TOPICAL PATCH TD SCH (10:54)
[2020-05-03] MEDS: PRENATAL VITAMINS W/ FOLIC ACID TABLET (FP) PO SCH (10:55)
[2020-05-03 11:45] VITALS: BP 152/91; PULSE 88; TEMP 96.9
== END 2020-05-03 12:02 | disposition other institution (70) | DRG 773 ==
LOC: YASAS 08:41 → Y6N 10:19
PROVIDERS: ADMIT Allergy & Immunology; ATTEND Allergy & Immunology
PROC: HZ2ZZZZ Detoxification Services for Substance Abuse Treatment (ICD-10-PCS; principal; 2020-04-28)
DX: F11.23 Opioid dependence with withdrawal (principal); F14.20 Cocaine dependence, uncomplicated; F10.10 Alcohol abuse, uncomplicated; F17.213 Nicotine dependence, cigarettes, with withdrawal; F19.24 Other psychoactive substance dependence with psychoactive substance-induced mood disorder; I10 Essential (primary) hypertension; R63.4 Abnormal weight loss; Z68.29 Body mass index [BMI] 29.0-29.9, adult; Z90.49 Acquired absence of other specified parts of digestive tract; Z91.010 Allergy to peanuts
CPT/HCPCS: 36415; 80053; 85027; 86780; 87389; 93005; 93010; C9803; G0008; J0735; Q2036; U0003

== ENCOUNTER 2020-05-03 12:06 | Inpatient (IN) | payer OTHER ==
[2020-05-03] MEDS ORDERED: guaiFENesin 200 MG/10 ML 10 ML UNIT-DOSE CUPS PO PRN (12:31)
[2020-05-03] MEDS ORDERED: MAGNESIUM HYDROX 2400MG/30ML ORAL SUSPENSION 30 ML CUP PO PRN (12:31)
[2020-05-03] MEDS ORDERED: P-EPHED 60MG/TRIPROLIDI 2.5MG TABLET PO PRN (12:31)
[2020-05-03] MEDS ORDERED: MAGNESIUM CITRATE 300 ML BOTTLE PO PRN (12:31)
[2020-05-03] MEDS ORDERED: MAG HYDROX/AL HYDROX/SIMETH 30 ML UNIT-DOSE CUP PO PRN (12:31)
[2020-05-03] MEDS ORDERED: LOPERAMIDE HCL 2 MG CAPSULE PO PRN (12:31)
[2020-05-03] MEDS ORDERED: ACETAMINOPHEN 325 MG TABLET (FP) PO PRN (12:31)
[2020-05-03] MEDS ORDERED: IBUPROFEN 400 MG TABLET (FP) PO PRN (12:31)
[2020-05-03] MEDS ORDERED: NICOTINE POLACRILEX 4 MG GUM BC PRN (12:31)
[2020-05-03] MEDS: MELATONIN 5 MG TABLETS PO SCH (21:47)
[2020-05-03] MEDS: THIAMINE HCL 100 MG TABLET (FP) PO SCH (21:47)
[2020-05-04] MEDS: PRENATAL VITAMINS W/ FOLIC ACID TABLET (FP) PO SCH (10:19)
[2020-05-04] MEDS: NICOTINE 21 MG/24 HOURS TOPICAL PATCH TD SCH (10:19)
[2020-05-04] MEDS ORDERED: cloNIDine HCL 0.1 MG TABLET PO PRN ×2 (11:12→11:18)
[2020-05-04] MEDS: THIAMINE HCL 100 MG TABLET (FP) PO SCH (21:47)
[2020-05-04] MEDS: MELATONIN 5 MG TABLETS PO SCH (21:47)
[2020-05-05] MEDS: NICOTINE 21 MG/24 HOURS TOPICAL PATCH TD SCH (10:20)
[2020-05-05] MEDS: PRENATAL VITAMINS W/ FOLIC ACID TABLET (FP) PO SCH (10:20)
[2020-05-05] MEDS: MELATONIN 5 MG TABLETS PO SCH (21:44)
[2020-05-05] MEDS: THIAMINE HCL 100 MG TABLET (FP) PO SCH (21:44)
[2020-05-06] MEDS: PRENATAL VITAMINS W/ FOLIC ACID TABLET (FP) PO SCH (11:00)
[2020-05-06] MEDS: NICOTINE 21 MG/24 HOURS TOPICAL PATCH TD SCH (11:00)
[2020-05-06] MEDS: MELATONIN 5 MG TABLETS PO SCH (21:30)
[2020-05-06] MEDS: THIAMINE HCL 100 MG TABLET (FP) PO SCH (21:30)
[2020-05-07] MEDS: PRENATAL VITAMINS W/ FOLIC ACID TABLET (FP) PO SCH (11:06)
[2020-05-07] MEDS: NICOTINE 21 MG/24 HOURS TOPICAL PATCH TD SCH (11:06)
[2020-05-07] MEDS: THIAMINE HCL 100 MG TABLET (FP) PO SCH (22:08)
[2020-05-07] MEDS: MELATONIN 5 MG TABLETS PO SCH (22:08)
[2020-05-08] MEDS: NICOTINE 21 MG/24 HOURS TOPICAL PATCH TD SCH (10:30)
[2020-05-08] MEDS: PRENATAL VITAMINS W/ FOLIC ACID TABLET (FP) PO SCH (10:30)
[2020-05-08] MEDS: MELATONIN 5 MG TABLETS PO SCH (21:58)
[2020-05-08] MEDS: THIAMINE HCL 100 MG TABLET (FP) PO SCH (21:58)
[2020-05-09] MEDS: PRENATAL VITAMINS W/ FOLIC ACID TABLET (FP) PO SCH (10:24)
[2020-05-09] MEDS: NICOTINE 21 MG/24 HOURS TOPICAL PATCH TD SCH (10:24)
[2020-05-09] MEDS: THIAMINE HCL 100 MG TABLET (FP) PO SCH (21:39)
[2020-05-09] MEDS: MELATONIN 5 MG TABLETS PO SCH (21:39)
[2020-05-10] MEDS: NICOTINE 21 MG/24 HOURS TOPICAL PATCH TD SCH (09:43)
[2020-05-10] MEDS: PRENATAL VITAMINS W/ FOLIC ACID TABLET (FP) PO SCH (09:43)
[2020-05-10] MEDS: THIAMINE HCL 100 MG TABLET (FP) PO SCH (21:21)
[2020-05-10] MEDS: MELATONIN 5 MG TABLETS PO SCH (21:21)
[2020-05-11] MEDS: NICOTINE 21 MG/24 HOURS TOPICAL PATCH TD SCH (10:01)
[2020-05-11] MEDS: PRENATAL VITAMINS W/ FOLIC ACID TABLET (FP) PO SCH (10:01)
[2020-05-11] MEDS: THIAMINE HCL 100 MG TABLET (FP) PO SCH (21:55)
[2020-05-11] MEDS: MELATONIN 5 MG TABLETS PO SCH (21:55)
[2020-05-12] MEDS: NICOTINE 21 MG/24 HOURS TOPICAL PATCH TD SCH (09:39)
[2020-05-12] MEDS: PRENATAL VITAMINS W/ FOLIC ACID TABLET (FP) PO SCH (09:39)
[2020-05-12] MEDS: THIAMINE HCL 100 MG TABLET (FP) PO SCH (21:42)
[2020-05-12] MEDS: MELATONIN 5 MG TABLETS PO SCH (21:42)
[2020-05-13] MEDS: PRENATAL VITAMINS W/ FOLIC ACID TABLET (FP) PO SCH (10:14)
[2020-05-13] MEDS: NICOTINE 21 MG/24 HOURS TOPICAL PATCH TD SCH (10:14)
[2020-05-13] MEDS: THIAMINE HCL 100 MG TABLET (FP) PO SCH (22:05)
[2020-05-13] MEDS: MELATONIN 5 MG TABLETS PO SCH (22:06)
[2020-05-14] MEDS: PRENATAL VITAMINS W/ FOLIC ACID TABLET (FP) PO SCH (10:31)
[2020-05-14] MEDS: NICOTINE 21 MG/24 HOURS TOPICAL PATCH TD SCH (10:31)
[2020-05-14] MEDS: THIAMINE HCL 100 MG TABLET (FP) PO SCH (21:21)
[2020-05-14] MEDS: MELATONIN 5 MG TABLETS PO SCH (21:21)
[2020-05-15] MEDS: NICOTINE 21 MG/24 HOURS TOPICAL PATCH TD SCH (10:32)
[2020-05-15] MEDS: PRENATAL VITAMINS W/ FOLIC ACID TABLET (FP) PO SCH (10:32)
[2020-05-15] MEDS: MELATONIN 5 MG TABLETS PO SCH (22:09)
[2020-05-15] MEDS: THIAMINE HCL 100 MG TABLET (FP) PO SCH (22:09)
[2020-05-16] MEDS: NICOTINE 21 MG/24 HOURS TOPICAL PATCH TD SCH (10:31)
[2020-05-16] MEDS: PRENATAL VITAMINS W/ FOLIC ACID TABLET (FP) PO SCH (10:31)
[2020-05-16] MEDS: THIAMINE HCL 100 MG TABLET (FP) PO SCH (22:09)
[2020-05-16] MEDS: MELATONIN 5 MG TABLETS PO SCH (22:09)
[2020-05-17] MEDS: NICOTINE 21 MG/24 HOURS TOPICAL PATCH TD SCH (10:09)
[2020-05-17] MEDS: PRENATAL VITAMINS W/ FOLIC ACID TABLET (FP) PO SCH (10:09)
[2020-05-17] MEDS: THIAMINE HCL 100 MG TABLET (FP) PO SCH (22:13)
[2020-05-17] MEDS: MELATONIN 5 MG TABLETS PO SCH (22:13)
[2020-05-18] MEDS: PRENATAL VITAMINS W/ FOLIC ACID TABLET (FP) PO SCH (10:20)
[2020-05-18] MEDS: NICOTINE 21 MG/24 HOURS TOPICAL PATCH TD SCH (10:20)
[2020-05-18] MEDS: MELATONIN 5 MG TABLETS PO SCH (21:42)
[2020-05-18] MEDS: THIAMINE HCL 100 MG TABLET (FP) PO SCH (21:42)
[2020-05-19] MEDS: PRENATAL VITAMINS W/ FOLIC ACID TABLET (FP) PO SCH (10:21)
[2020-05-19] MEDS: NICOTINE 21 MG/24 HOURS TOPICAL PATCH TD SCH (10:21)
[2020-05-19] MEDS: MELATONIN 5 MG TABLETS PO SCH (21:50)
[2020-05-19] MEDS: THIAMINE HCL 100 MG TABLET (FP) PO SCH (21:50)
[2020-05-20] MEDS: PRENATAL VITAMINS W/ FOLIC ACID TABLET (FP) PO SCH (10:00)
[2020-05-20] MEDS: NICOTINE 21 MG/24 HOURS TOPICAL PATCH TD SCH (10:00)
[2020-05-20] MEDS: METHOCARBAMOL 500 MG TABLET PO SCH ×3 (14:05→22:04)
[2020-05-20] MEDS: MELATONIN 5 MG TABLETS PO SCH (22:04)
[2020-05-20] MEDS: THIAMINE HCL 100 MG TABLET (FP) PO SCH (22:05)
[2020-05-21] MEDS: PRENATAL VITAMINS W/ FOLIC ACID TABLET (FP) PO SCH (10:30)
[2020-05-21] MEDS: NICOTINE 21 MG/24 HOURS TOPICAL PATCH TD SCH (10:30)
[2020-05-21] MEDS: METHOCARBAMOL 500 MG TABLET PO SCH ×4 (10:30→21:35)
[2020-05-21] MEDS: THIAMINE HCL 100 MG TABLET (FP) PO SCH (21:35)
[2020-05-21] MEDS: MELATONIN 5 MG TABLETS PO SCH (21:35)
[2020-05-22] MEDS: NICOTINE 21 MG/24 HOURS TOPICAL PATCH TD SCH (10:36)
[2020-05-22] MEDS: METHOCARBAMOL 500 MG TABLET PO SCH ×4 (10:36→21:37)
[2020-05-22] MEDS: PRENATAL VITAMINS W/ FOLIC ACID TABLET (FP) PO SCH (10:36)
[2020-05-22] MEDS: MELATONIN 5 MG TABLETS PO SCH (21:37)
[2020-05-22] MEDS: THIAMINE HCL 100 MG TABLET (FP) PO SCH (21:38)
[2020-05-23] MEDS: NICOTINE 21 MG/24 HOURS TOPICAL PATCH TD SCH (09:49)
[2020-05-23] MEDS: PRENATAL VITAMINS W/ FOLIC ACID TABLET (FP) PO SCH (09:50)
[2020-05-23] MEDS: METHOCARBAMOL 500 MG TABLET PO SCH ×4 (09:50→21:42)
[2020-05-23] MEDS: MELATONIN 5 MG TABLETS PO SCH (21:42)
[2020-05-23] MEDS: THIAMINE HCL 100 MG TABLET (FP) PO SCH (21:42)
[2020-05-24] MEDS: PRENATAL VITAMINS W/ FOLIC ACID TABLET (FP) PO SCH (09:41)
[2020-05-24] MEDS: METHOCARBAMOL 500 MG TABLET PO SCH ×4 (09:41→21:55)
[2020-05-24] MEDS: NICOTINE 21 MG/24 HOURS TOPICAL PATCH TD SCH (09:41)
[2020-05-24] MEDS: THIAMINE HCL 100 MG TABLET (FP) PO SCH (21:55)
[2020-05-24] MEDS: MELATONIN 5 MG TABLETS PO SCH (21:55)
[2020-05-25] MEDS: PRENATAL VITAMINS W/ FOLIC ACID TABLET (FP) PO SCH (10:23)
[2020-05-25] MEDS: NICOTINE 21 MG/24 HOURS TOPICAL PATCH TD SCH (10:23)
[2020-05-25] MEDS: METHOCARBAMOL 500 MG TABLET PO SCH ×4 (10:23→21:24)
[2020-05-25] MEDS: MELATONIN 5 MG TABLETS PO SCH (21:23)
[2020-05-25] MEDS: THIAMINE HCL 100 MG TABLET (FP) PO SCH (21:24)
[2020-05-26] MEDS: METHOCARBAMOL 500 MG TABLET PO SCH ×4 (10:46→21:49)
[2020-05-26] MEDS: NICOTINE 21 MG/24 HOURS TOPICAL PATCH TD SCH (10:46)
[2020-05-26] MEDS: PRENATAL VITAMINS W/ FOLIC ACID TABLET (FP) PO SCH (10:46)
[2020-05-26] MEDS: MELATONIN 5 MG TABLETS PO SCH (21:49)
[2020-05-26] MEDS: THIAMINE HCL 100 MG TABLET (FP) PO SCH (21:49)
[2020-05-27] MEDS: PRENATAL VITAMINS W/ FOLIC ACID TABLET (FP) PO SCH (10:06)
[2020-05-27] MEDS: NICOTINE 21 MG/24 HOURS TOPICAL PATCH TD SCH (10:06)
[2020-05-27] MEDS: METHOCARBAMOL 500 MG TABLET PO SCH ×4 (10:06→22:54)
[2020-05-27] MEDS: THIAMINE HCL 100 MG TABLET (FP) PO SCH (22:54)
[2020-05-27] MEDS: MELATONIN 5 MG TABLETS PO SCH (22:54)
[2020-05-28 06:53] VITALS: BP 141/90; PULSE 94; TEMP 97.3
== END 2020-05-28 07:31 | disposition home or self-care (01) | DRG 772 ==
LOC: YASAS 12:06 → Y5N 12:08
PROVIDERS: ADMIT Allergy & Immunology; ATTEND Allergy & Immunology
PROC: HZ42ZZZ Group Counseling for Substance Abuse Treatment, Cognitive-Behavioral (ICD-10-PCS; principal; 2020-05-03)
DX: F10.20 Alcohol dependence, uncomplicated (principal); F14.20 Cocaine dependence, uncomplicated; F13.20 Sedative, hypnotic or anxiolytic dependence, uncomplicated; F16.20 Hallucinogen dependence, uncomplicated; F12.20 Cannabis dependence, uncomplicated; F17.210 Nicotine dependence, cigarettes, uncomplicated; I10 Essential (primary) hypertension; Z86.79 Personal history of other diseases of the circulatory system; Z91.010 Allergy to peanuts
CPT/HCPCS: C9803; U0003